=== PATIENT | male | born 1960 | race Caucasian/White ===

== ENCOUNTER 2016-08-15 15:12 | Inpatient (IN) | payer OTHER ==
[~2016-08-15] VITALS: Ht 152.4 cm; Wt 78.9 kg
[~2016-08-15 15:12] MED LIST: A & D OINTMENT1 OIN TOP; ADVIL LIQUI-GE200 MG PO; ALDACTONE 25 MG25 MG PO; AUGMENTIN 875-1 EACH PO; AVONEX 3030 MCG/0.5 IM; BACTRIM DS 8001 TAB PO; BIAXIN 500MG T500 MG PO; CIPRO 500MG TA500 MG PO; COD LIVER OIL PO; COD LIVER OIL1 CAP PO; COREG CR80 MG PO; DOXYCYCLINE MO100 MG PO; DOXYCYCLINE100 MG PO; ESTER C 500 MG-1 TAB PO; FERROUS SULFAT325 M2 PO; FISH OIL 1,0001 EAC1 PO; FISH OIL CONC1000 MG PO; FLORASTOR250 M1 PO; FOLIC ACID 1 MG PO; FOLIC ACID1 M1 PO; IMODIUM 2 MG. CA2 MG PO; K-DUR 20MEQ TA20 MEQ PO; KLOR-CON 10MEQ10 MEQ PO; KLOR-CON M1010 MEQ PO; LOMOTIL 0.025 M1 TAB PO; LOPERAMIDE PO; Lioresal; MESTINON60 M1 PO; MESTINON60 MG PO; NATURAL ZINC50 MG PO; NYSTATIN100000 U/G TOP; PANTOPRAZOLE 40 MG PO; PANTOPRAZOLE SO40 MG PO; PREDNISONE 20MG20 MG PO; PREDNISONE20 M1 PO; SIMVASTATIN10 M1 PO; SIMVASTATIN10 MG PO; SPIRONOLACTONE25 MG PO; VITAMIN B12500 MCG PO; VITAMIN D31000 IU PO; [UNRECOGNIZED DRUG - OTHER] PO
--- NOTE | 2016-08-15 15:19 | NUR ---
STEPHANIE FROM [facility]. PER EMS AND PT, PT HAS CHRONIC S/P TUBE DUE TO MS, HAS BEEN TREATED FOR UTI WITH ORAL CIPRO, TODAY URINE CULTURE RESULTS CAME BACK AND PT WAS SENT IN FOR IV ABX. PT REPORTS POOR DRAINAGE FROM S/P TUBE LATELY, URINE HAS BEEN BLUE/PURPLE, PT STATING "MY UROLOGIST TOLD ME THAT MY BLADDER HAS SHRUNK TO THE SIZE OF THE BALLOON ON THE TUBE, SO IT'S VERY HARD TO UNCLOG."
--- NOTE | 2016-08-15 15:27 | ED GI/GU/ABDOMINAL COMPLAINT ---
History of Present Illness General Chief Complaint: Male Genitourinary Problems Stated Complaint: BIBA UTI Source: patient, old records Exam Limitations: no limitations Allergies Coded Allergies: NO KNOWN ALLERGIES (12/28/15) Reconcile Medications Ascorbic Acid/Bioflavonoid/C (Maryann C 500 MG-200 MG-50 MG) 1 TAB TAB 1 CAP PO DAILY HEALTH PROMOTION (Reported) Baclofen 10 MG TABLET 1 TAB PO 4 TIMES/DAY MUSCLE SPASMS (Reported) Bifidobacterium Infantis (Align) 4 MG (1 BILLION CELL) CAPSULE 1 TAB PO DAILY supplement (Reported) Carvedilol Phosphate (Coreg Cr) 80 MG CPMP.24HR 1 CAP PO DAILY heart ( Reported) Cholecalciferol (Vitamin D3) 1,000 IU TAB 2 TAB PO DAILY SUPPLEMENT (Reported ) Cyanocobalamin (Vitamin B12) 500 MCG TAB 1 TAB PO DAILY HEALTH PROMOTION ( Reported) Folic Acid 1 MG TABLET 1 TAB PO DAILY SUPPLEMENT (Reported) Ibuprofen (Advil Liqui-Gels) 200 MG CAPSULE 2 CAP PO Q4H PRN PAIN (Reported) Interferon Beta-1a/Albumin (Avonex Admin Pack 30 Mcg Vl) 30 MCG (1 ML) KIT 1 ML IM QWED MS (Reported) Loperamide HCl (Loperamide) 2 MG CAPSULE 1 CAP PO Q3H PRN DIARHHEA (Reported) [leon red 3] (Unknown Strength) (Unknown Dose) PO DAILY supplemt (Reported) Upatoi-3 Fatty Acids/Fish Oil (Fish Oil 1,000 MG Softgel) 1 EACH CAPSULE 1 CAP PO DAILY SUPPLEMENT (Reported) Pantoprazole Sodium 40 MG TABLET.DR 1 TAB PO DAILY AC GI (Reported) Potassium Chloride (Klor-Con M20) 20 MEQ TAB.ER.PRT 1 TAB PO BID SUPPLEMENT ( Reported) Prednisone 20 MG TABLET 1 TAB PO DAILY PRN ms exacerbation (Reported) Pyridostigmine [place] (Mestinon) 60 MG TABLET 1 TAB PO TID intestinal obstruction Please talk to your PCP immediately about resuming the medication. Saccharomyces Boulardii (Florastor) 250 MG CAPSULE 1 CAP PO BID PROBIOTIC ( Reported) Simvastatin (Simvastatin*) 10 MG TABLET 1 TAB PO QPM CHOLESTEROL (Reported) Spironolactone (Aldactone 25 MG Tablet) 25 MG TABLET 1 TAB PO DAILY DIURETIC (Reported) Zinc Gluconate (ZINC) 50 MG TABLET 1 TAB PO DAILY SUPPLEMENT (Reported) Triage Note: [facility]. PER EMS AND PT, PT HAS CHRONIC S/P TUBE DUE TO MS, HAS BEEN TREATED FOR UTI WITH ORAL CIPRO, TODAY URINE CULTURE RESULTS CAME BACK AND PT WAS SENT IN FOR IV ABX. PT REPORTS POOR DRAINAGE FROM S/P TUBE LATELY, URINE HAS BEEN BLUE/PURPLE, PT STATING "MY UROLOGIST TOLD ME THAT MY BLADDER HAS SHRUNK TO THE SIZE OF THE BALLOON ON THE TUBE, SO IT'S VERY HARD TO UNCLOG." Triage Nurses Notes Reviewed? yes HPI: Patient is a 56 year old male sent to the ED for treatment of urinary tract infection. Patient noticed purple discoloration to urine 1 week ago. Placed on Cipro on Monday, had a urine culture sent on Monday which is reportedly showing resistance to ciprofloxacin. Patient's urologist is Dr. Fish. Intermittent lightheadedness over the past few weeks. Patient reports that his blood pressure has been running "low", oftentimes below 100 systolic. 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 Patient has chronic pain secondary to multiple sclerosis, no acute change in his pain. Pain is currently mild to moderate. Patient denies any new back pain, abdominal pain, fevers, chills, vomiting (MEENA GRIFFITH) Vital Signs & Intake/Output Vital Signs & Intake/Output Vital Signs Date Time Temp Pulse Resp B/P Pulse O2 O2 Flow FiO2 Ox Delivery Rate 08/15 1928 97.1 79 18 121/74 96 Room Air 08/15 1731 98.1 82 18 119/70 97 Room Air 08/15 1517 97.0 76 18 124/73 97 Room Air Past History Travel History Traveled to [place] past 21 day No Medical History Any Pertinent Medical History? see below for history Neurological: multiple sclerosis EENT: NONE Cardiovascular: hypertension, CONGESTIVE HEART FAILURE HPL CARDIOMYOPATHY Respiratory: NONE Gastrointestinal: PSEUDO OBSTRUCTION ILEUS Hepatic: NONE Renal: SUPRAPUBIC TUBE-FREQUENT OBSTRUCTION. 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 No (MEENA GRIFFITH) Review of Systems Review of Systems Constitutional: Reports: weakness. Denies: chills, fever. EENTM: Reports: no symptoms. Respiratory: Denies: cough, short of breath. Cardiovascular: Denies: chest pain, peripheral edema, syncope. GI: Denies: abdominal pain, nausea, vomiting. Genitourinary: Reports: see HPI. Musculoskeletal: Reports: back pain (chronic, unchanged). Skin: Reports: no symptoms. Neurological/Psychological: Reports: numbness (chronic secondary to MS). Denies: headache. Hematologic/Endocrine: Denies: bruising, bleeding. Immunologic/Allergic: Denies: splenectomy. (MEENA GRIFFITH) Physical Exam Physical Exam General Appearance: alert, awake Head: atraumatic, normal appearance Eyes: Bilateral: normal appearance, PERRL, EOMI. Ears, Nose, Throat, Mouth: hearing grossly normal, moist mucous membrane Neck: normal inspection, supple, full range of motion Respiratory: normal breath sounds, chest non-tender, no respiratory distress, lungs clear Cardiovascular: regular rate/rhythm Gastrointestinal: normal bowel sounds, soft, non-tender Male Genitals: purple discoloration patient's urine in his suprapubic catheter bag Extremities: no lower extremity edema. Decreased range of motion in all 4 extremities which patient reports is chronic secondary to his multiple sclerosis Neurologic/Psych: awake, alert, oriented x 3 Skin: warm/dry Core Measures ACS in differential dx? No Severe Sepsis Present: No Septic Shock Present: No (MEENA GRIFFITH) Progress Differential Diagnosis: urinary tract infection, medication induced change in urine color, sepsis, suprapubic catheter dysfunction Initial ED EKG: normal axis, normal p-waves, normal QRS complex, normal sinus rhythm, nonspecific intraventricular conduction delay, nonspecific st/t wave changes, no acute changes from previous ekg. Prior EKG: unchanged (MEENA GRIFFITH) Plan of Care: Orders Procedure Date/time Status Heart Healthy Diet 08/16 B Active CBC WITHOUT DIFFERENTIAL 08/16 599 Active BASIC ELECTROLYTES PLUS BUN&CR 08/16 599 Active URINALYSIS 08/15 1952 Active Pathway - chart 08/15 1951 Active Code Status 08/15 Active Intake & Output 08/15 191 Active Misc Message 08/15 184 Active ED Holding Orders 08/15 184 Active Vital Signs 08/15 184 Active Code Status 08/15 184 Complete Admit to inpatient 08/15 1838 Active Patient Data 08/15 1823 Active EKG 08/15 181 Active CULTURE,URINE 08/15 1537 Active BLOOD CULTURE 08/15 1537 Active LACTIC ACID 08/15 1537 Complete COMPREHENSIVE METABOLIC PANEL 08/15 1537 Complete CBC WITHOUT DIFFERENTIAL 08/15 1537 Complete House Staff 08/15 UNK Active VTE Mechanical Prophylaxis 08/15 UNK Active Current Medications Sig/Danitza Start time Last Medication Dose Stop Time Status Admin Atorvastatin Calcium 5 MG 1700 08/16 1700 UNVr (Lipitor) Ascorbic Acid 250 MG DAILY 08/16 1000 UNVr (Vitamin C) Cyanocobalamin 250 MCG DAILY 08/16 1000 UNVr (Vitamin B12) Enoxaparin Sodium 40 MG DAILY 08/16 1000 UNVr (Lovenox) Fish Oil 1,050 MG DAILY 08/16 1000 UNVr (Upatoi-3) Folic Acid 1 MG DAILY 08/16 1000 UNVr (Folic Acid) Baclofen 10 MG 4 TIMES/DAY 08/15 2199 UNVr (Lioresal 10MG Tablet) Potassium Chloride 20 MEQ BID 08/15 2199 UNVr (K-Dur) Acetaminophen 650 MG Q6P PRN 08/15 1999 UNVr (Tylenol) Sodium Chloride 1,000 ML Q13H 08/15 1999 UNVr (Normal Saline 0.9%) 08/16 2158 Loperamide HCl 2 MG Q3H PRN 08/15 1944 UNVr (Imodium) Ceftriaxone Sodium 1,000 MG DAILY 08/15 193 UNVr (Rocephin) Laboratory Tests 08/15/16 1837: Lactic Acid Cancelled 08/15/16 1620: Anion Gap 9, Estimated GFR > 60, BUN/Creatinine Ratio 22.5, Glucose 115 H, Lactic Acid 0.9, Calcium 8.9, Total Bilirubin 1.0, AST 14 L, ALT 18 L, Alkaline Phosphatase 59, Total Protein 6.5, Albumin 3.3 L, Globulin 3.2, Albumin/Globulin Ratio 1.0 L, CBC w Diff NO MAN DIFF REQ, RBC 5.18, MCV 78.9 L , MCH 25.7 L, RDW 16.0 H, MPV 9.3, Gran % 61.1, Lymphocytes % 28.1, Monocytes % 9.1, Eosinophils % 1.4, Basophils % 0.3, Absolute Granulocytes 3.3, Absolute Lymphocytes 1.5, Absolute Monocytes 0.5, Absolute Eosinophils 0.1, Absolute Basophils 0, PUBS MCHC 32.6 L Microbiology 08/15 1635 BLOOD: Blood Culture - RECD 08/15 1620 BLOOD: Blood Culture - RECD 08/15 1537 URINE ROUT: Urine Culture - ORD 1550: Discussed with Dr. Fish, he does not have patient's urine culture results, was called by nurse at assisted living and told that patient has been having decreased urine output and fluctuating mental status. Patient will likely need IV antibiotics and would bring for cystoscopy tomorrow. 1615: Discussed with Chary, talent development director at patient's assisted living facility. She does not have the urine culture results, reports that Dr. Fish' s office has the results. Urine culture obtained from Dr. Fish's office. Ampicillin and Bactrim ordered secondary to the sensitivities that were provided. Discussed with Dr. Rider: will admit to general medicine. (MEENA GRIFFITH) Departure Departure Time of Disposition: 1817 Disposition: HOME OR SELF CARE Condition: Stable Clinical Impression Primary Impression: Urinary tract infection Referrals: SHOOK LAWANDA ZAMORA (PCP/Family) Departure Forms: Customer Survey General Discharge Information Admission Note Spoke With: LIZZ RIDER MD Documentation of Exam: Documentation of any treatments & extenuating circumstances including Concerns Regarding Discharge (functional status, medication knowledge or non-compliance, living conditions, etc.) that warrant an admission rather than observation: Antibiotics, urology consultation, likely cystoscopy. Patient with reported episodes of hypotension recently, concern for failing antibiotic therapy and risk of sepsis (MEENA GRIFFITH) PA/RESIDENT MEDICAL OFFICER Co-Sign Statement Statement: ED Attending supervision documentation- [] I saw and evaluated the patient. I have also reviewed all the pertinent lab results and diagnostic results. I agree with the findings and the plan of care as documented in the PA's/RESIDENT MEDICAL OFFICER's documentation. [x] I have reviewed the ED Record and agree with the PA's/RESIDENT MEDICAL OFFICER's documentation. [] Additions or exceptions (if any) to the PAs/RESIDENT MEDICAL OFFICER's note and plan are summarized below: [] (TIM ZAMORA,DIEGO Bailey)
--- NOTE | 2016-08-15 15:28 | NUR ---
PT TO ROOM 19, TRANSFERRED TO JACOBY CONSTANTINO AND JACOBY BRONSON AT BEDSIDE FOR EVAL. PT REPORTS HE HAS CHRONIC PAIN DUE TO MS BUT HAS HAD NO NEW PAIN SYMPTOMS AT THIS TIME.
[2016-08-15] MEDS ORDERED: KLOR-CON M2020 ME1 PO (15:41)
[2016-08-15] MEDS ORDERED: AVONEX ADMIN P30 MCG IM (15:42)
[2016-08-15] MEDS ORDERED: BACLOFEN10 M1 PO (15:44)
[2016-08-15] MEDS ORDERED: ADVIL LIQUI-GE200 M1 PO (15:45)
[2016-08-15] MEDS ORDERED: LOPERAMIDE2 M2 PO (15:45)
--- NOTE | 2016-08-15 16:36 | NUR ---
PT EVALUATED BY MONTEZ DOZIER BLOOD DRAWN DIRECTED WITH 1ST SET OF BLOOD CULTURES
[2016-08-15 16:53] LABS: ABSOLUTE BASOPHIL COUNT 0 /CUMM (0.0-0.2); ABSOLUTE EOSINOPHIL COUNT 0.1 /CUMM (0.0-0.7); ABSOLUTE GRANULOCYTE CT 3.3 /CUMM (1.4-6.5); ABSOLUTE LYMPH COUNT 1.5 /CUMM (1.2-3.4); ABSOLUTE MONOCYTE COUNT 0.5 /CUMM (0.10-0.60); BASOPHIL % 0.3 % (0.0-2.0); EOSINOPHIL % 1.4 % (0-5); GRANULOCYTE % 61.1 % (42.2-75.2); HEMATOCRIT 40.8 % (42-52); MEAN CORPUSCULAR HGB 25.7 PG (27.0-31.0); MEAN CORPUSCULAR HGB CONC 32.6 G/DL (33.0-37.0); MEAN CORPUSCULAR VOLUME 78.9 FL (80.0-94.0); MEAN PLATELET VOLUME 9.3 FL (7.4-10.4); PLATELET COUNT 209 /CUMM (130-400); RED BLOOD CELL CT 5.18 /CUMM (4.70-6.10); WHITE BLOOD CELL COUNT 5.4 /CUMM (4.8-10.8)
--- NOTE | 2016-08-15 17:02 | NUR ---
2ND SET OF BLOOD CULTURES DRAWN 20 G ERICKA PLACED IN LEFT FOREARM CLINICAL STATUS UNCHANGED
--- NOTE | 2016-08-15 19:29 | History & Physical ---
EVI HURST MD 08/15/161928: General Information and HPI MD Statement: I have seen and personally examined HUSAM GOTTLIEB and documented this H&P. The patient is a 56 year old M who presented with a patient stated chief complaint of urinary infection and low blood pressure. Source of Information: patient Exam Limitations: no limitations History of Present Illness: 56 year old man with past medical history significant for multiple sclerosis, paraplegia, congestive heart failure, cardiomyopathy, and chronic indwelling suprapubic catheter brought in by ambulance for evaluation of "low blood pressure" and urinary tract symptoms. Patient lives with his 96 year old mother in an independent living facility whom was reportedly standing up making Hirifast this morning when she suddenly collapsed. Patient hit his alert button to call for help. His mother was taken to [facility] for evaluation, and the patient himself was evaluated by the staff there where they found his "blood pressure to be low" and that his vickers was draining "purple urine". Patient sees Dr. Fish for care of his suprapubic catheter which was reportedly recently placed and unknown time ago. Prior to this he had a chronic vickers catheter for which he reports was associated with frequent urinary tract infections. He reports the catheter was 'recently replaced' and he was put on an antibiotic. Cultures were taken at this time which subsequently grew two organisms resistant to the prescribed antibiotics. He denies any urinary pain, pressure, frequency, urgency or bloody urine, double/blurred vision. Additionally he denies any headache, fever, chills, chest pain, palpitations, shortness of breath, cough, nausea, vomiting, diarrhea, numbness/tingling, new neurologic deficits. PMHx: Multiple Sclerosis, Paraplegia, Chronic Suprapubic Catheter, Systolic Congestive Heart Failure, Cardiomyopathy, Hypertension, Recurrent UTI Allergies/Medications Allergies: Coded Allergies: NO KNOWN ALLERGIES (12/28/15) Home Med list Ascorbic Acid/Bioflavonoid/C (Maryann C 500 MG-200 MG-50 MG) 1 TAB TAB 1 CAP PO DAILY HEALTH PROMOTION (Reported) Baclofen 10 MG TABLET 1 TAB PO 4 TIMES/DAY MUSCLE SPASMS (Reported) Bifidobacterium Infantis (Align) 4 MG (1 BILLION CELL) CAPSULE 1 TAB PO DAILY supplement (Reported) Carvedilol Phosphate (Coreg Cr) 80 MG CPMP.24HR 1 CAP PO DAILY heart ( Reported) Cholecalciferol (Vitamin D3) 1,000 IU TAB 2 TAB PO DAILY SUPPLEMENT (Reported ) Cyanocobalamin (Vitamin B12) 500 MCG TAB 1 TAB PO DAILY HEALTH PROMOTION ( Reported) Folic Acid 1 MG TABLET 1 TAB PO DAILY SUPPLEMENT (Reported) Ibuprofen (Advil Liqui-Gels) 200 MG CAPSULE 2 CAP PO Q4H PRN PAIN (Reported) Interferon Beta-1a/Albumin (Avonex Admin Pack 30 Mcg Vl) 30 MCG (1 ML) KIT 1 ML IM QWED MS (Reported) Loperamide HCl (Loperamide) 2 MG CAPSULE 1 CAP PO Q3H PRN DIARHHEA (Reported) [leon red 3] (Unknown Strength) (Unknown Dose) PO DAILY supplemt (Reported) Lincoln-3 Fatty Acids/Fish Oil (Fish Oil 1,000 MG Softgel) 1 EACH CAPSULE 1 CAP PO DAILY SUPPLEMENT (Reported) Pantoprazole Sodium 40 MG TABLET.DR 1 TAB PO DAILY AC GI (Reported) Potassium Chloride (Klor-Con M20) 20 MEQ TAB.ER.PRT 1 TAB PO BID SUPPLEMENT ( Reported) Prednisone 20 MG TABLET 1 TAB PO DAILY PRN ms exacerbation (Reported) Pyridostigmine [place] (Mestinon) 60 MG TABLET 1 TAB PO TID intestinal obstruction Please talk to your PCP immediately about resuming the medication. Saccharomyces Boulardii (Florastor) 250 MG CAPSULE 1 CAP PO BID PROBIOTIC ( Reported) Simvastatin (Simvastatin*) 10 MG TABLET 1 TAB PO QPM CHOLESTEROL (Reported) Spironolactone (Aldactone 25 MG Tablet) 25 MG TABLET 1 TAB PO DAILY DIURETIC (Reported) Zinc Gluconate (ZINC) 50 MG TABLET 1 TAB PO DAILY SUPPLEMENT (Reported) Past History Travel History Traveled to [place] past 21 day No Medical History Neurological: multiple sclerosis EENT: NONE Cardiovascular: hypertension, CONGESTIVE HEART FAILURE HPL CARDIOMYOPATHY Respiratory: NONE Gastrointestinal: PSEUDO OBSTRUCTION ILEUS Hepatic: NONE Renal: SUPRAPUBIC TUBE-FREQUENT OBSTRUCTION. HYPOKALEMIA Musculoskeletal: NONE Psychiatric: NONE Endocrine: NONE Blood Disorders: NONE Cancer(s): NONE SENIOR SALES ADMINISTRATOR/Reproductive: N/A History of MRSA: No History of VRE: Yes History of CDIFF: No Surgical History Surgical History: SUPRAPUBIC CATHETER TONSILS Past Family/Social History Family History Relations & Conditions if any Relation not specified for: *No pertinent family history Psychosocial History Where do you live? [facility] Who Do You Live With? parent Services at Home: Home Health Aide, Nursing Smoking Status: Former Smoker ETOH Use: occasional use Illicit Drug Use: denies illicit drug use Functional Ability ADLs Needs Assist: dressing, eating, toileting, bathing. Ambulation: non-ambulatory IADLs Needs Assist: shopping, housework, finances, food prep, telephone, transportation, medication admin. Review of Systems Review of Systems Constitutional: Reports: see HPI. Exam & Diagnostic Data Last 24 Hrs of Vital Signs/I&O Vital Signs Date Time Temp Pulse Resp B/P Pulse O2 O2 Flow FiO2 Ox Delivery Rate 08/15 2233 97.9 87 20 112/78 94 Room Air 08/15 1929 97.1 79 18 121/74 96 Room Air 08/15 1731 98.1 82 18 119/70 97 Room Air 08/15 1517 97.0 76 18 124/73 97 Room Air Intake & Output 08/16 0800 08/16 0000 08/15 1600 Intake Total 0 Output Total Balance 0 Intake, IV 0 Patient 78.925 kg 77.111 kg Weight Physical Exam General Appearance Alert, Oriented X3, Cooperative, No Acute Distress Skin No Rashes, No Breakdown, No Significant Lesion HEENT Atraumatic, PERRLA, EOMI, Mucous Membr. moist/pink Neck Supple Cardiovascular Regular Rate, Normal S1, Normal S2, No Murmurs Lungs Clear to Auscultation, Normal Air Movement Abdomen Normal Bowel Sounds, Soft, No Tenderness, No Hepatospenomegaly, No Masses, Suprapubic catheter site intact without any surrounding drainage, erythema, or induration Neurological Paraplegic, Speech is soft and slow, Diminished muscle tone, Strength 2/5 in BL UE, 1/5 in BL LE Extremities No Clubbing, No Cyanosis, No Edema, Normal Pulses, No Tenderness/ Swelling Vascular Normal Pulses, Pulses Symmetrical Last 24 Hrs of Labs/Parker: Laboratory Tests 08/15/16 1837: Lactic Acid Cancelled 08/15/16 1620: Anion Gap 9, Estimated GFR > 60, BUN/Creatinine Ratio 22.5, Glucose 115 H, Lactic Acid 0.9, Calcium 8.9, Total Bilirubin 1.0, AST 14 L, ALT 18 L, Alkaline Phosphatase 59, Total Protein 6.5, Albumin 3.3 L, Globulin 3.2, Albumin/Globulin Ratio 1.0 L, CBC w Diff NO MAN DIFF REQ, RBC 5.18, MCV 78.9 L , MCH 25.7 L, RDW 16.0 H, MPV 9.3, Gran % 61.1, Lymphocytes % 28.1, Monocytes % 9.1, Eosinophils % 1.4, Basophils % 0.3, Absolute Granulocytes 3.3, Absolute Lymphocytes 1.5, Absolute Monocytes 0.5, Absolute Eosinophils 0.1, Absolute Basophils 0, PUBS MCHC 32.6 L Microbiology 08/15 1635 BLOOD: Blood Culture - RECD 08/15 1620 BLOOD: Blood Culture - RECD 08/15 1537 URINE ROUT: Urine Culture - ORD Diagnostic Data EKG Results NSR HR 79 RI [address]-segment changes Assessment/Plan Assessment: 56 year old male with multiple medical problems significant for MS with paraplegia, chronic indwelling vickers, and recurrent UTIs seen for evaliation of low blood pressure, apparenent urinary tract infection and purple urine after patients mother reportedly collapsed and suffered a stroke. Patient has been seen my multiple specialists in the past for his MS and comorbid conditions since he was first diagnosed with multiple sclerosis after the of his son in 1988. He reports an extensive history of recurrent UTIs that have gotten less frequent since he was placed with a suprapubic catheter. Urine cultures from the last urology visit are growing two organisms resistant to Ciprofloxacin, but fortunately sensitive to Ceftriaxone. Patient is to be admitted to the general medicine floor and started on intravenous antibiotics. Urinary Tract Infection / Suprapubic Catheter: History of Multiple Sclerosis requiring vickers catheter and recently changed to suprapubic catheter for recurrent UTIs most likely secondary to chronic neurogenic bladder. Patient of Dr. Fish. He was given Bactrim and Ampicillin in the ED. -UCx growing E. Faecalis and P. stuartii -Ceftriaxone 1g IV Daily -Nystatin -Urology consult -F/U Blood/Urine cultures Hypotension: Patient was reportedly hypotensive at his independent living facility. BP range in ED 119-124/70-73. -Monitor Vitals, bolus as needed -Hold blood pressure medications, resume as tolerated Multiple Sclerosis: Reportedly diagnosed after the of his son in 1988. Subsequently developing paraplegia and neurogenic bladder. -Baclofen 10mg PO Q6H History of Systolic Congestive Heart Failure: No bilateral lower extremity swelling, JVD, or crackles on examination. Patient of Dr. Membreno. -Spironolactone 12.5mg PO Daily -KCl 20mEq PO BID Hypertension - hold Coreg/Carvedilol as above, monitor for high/low blood pressure Hyperlipidemia - continue Atorvastatin 5mg Pain Plain: -Acetaminophen 650mg PO Q6H PRN PAIN 1-3, FEVER Diet - Heart Healthy Diet DVT PPx - Lovenox Code Status - FULL CODE As Ranked By This Provider Problem List: 1. Urinary tract infection Core Measures/Miscellaneous Acute Coronary Syndrome ACS Diagnosis: No Cerebrovascular Accident CVA/TIA Diagnosis: No Congestive Heart Failure CHF Diagnosis: No Venous Thromboembolism VTE Risk Factors: Age > 40, Immobility, paresis VTE Prophylaxis Ordered Inpt: [facility] prophylaxis d/t: At risk for falls, Sensory neuropathy No VTE Pharm Prophylaxis d/t: No contraindications VTE Diagnosis: No VTE Type: NONE VTE Confirmed by (Test): NONE Severe Sepsis Severe Sepsis Present: No Septic Shock Septic Shock Present: No Miscellaneous Documentation Attending Case Discussed With: [place] Primary Care Physician: LAWANDA SHOOK MD Patient sees these Specialists Dr. Abe Mckenzie (Neurology) Level of Patient Care: General Medicine Consults Needed: Consulting Specialty: Urology SUPA RED 08/15/162100: Resident Review Statement Resident Statement: examined this patient, discussed with software developer intern, agreed with software developer intern, reviewed images, amended to note Other Findings: 56-year-old man with past medical history of MS with paraplegia, suprapubic catheter,hx of CHF and cardiomyopathy,hronic pseudo-obstruction(recent admission to [facility]), HTN was brought to the hospital with chief complaint of urinary infection. Of note patient was taken care of by his mother, who had the CVA today and she is also in the hospital. Patient reported having his Vickers catheter change every 4-6 weeks. However recently it was changed within a span of one week due to being clogged. Patient here in color has changed to Purple for about 1 week ago, Dr. Fish was called and he was put on ciprofloxacin urine culture was sent on Monday. However the result of the urine culture showed Enterococcus faecalis and P.staurrti resistant to Cipro therefore patient came to the hospital. Patient also reported of having low blood pressures it's which she attributed to his cardiac medication. Patient denies any fever, chills, nausea, vomiting, headaches. Vital signs on admission were stable Skin No Rashes, No Breakdown, No Significant Lesion HEENT Atraumatic, PERRLA, EOMI Neck Supple, No JVD, No thryomegaly Lymphatic Cervical nl Cardiovascular Regular Rate, Normal S1, Normal S2 Lungs Clear to Auscultation, Normal Air Movement Abdomen Normal Bowel Sounds, Soft, No Tenderness, Neurological 0/5 LE, 3-4/5 UE strength Extremities No Clubbing, No Cyanosis, No Edema,Normal Pulses EKG showed normal sinus rhythm with no acute ST-T changes Notable labs showed albumin 3.3, mild microcytic anemia Outpatient urine culture showed growthof Enterococcus faecalis and P(Providencia rettgeri).stuarrti sensitive to ceftriaxone Assessment and plan #purple urine back syndrome, urinary infection -Patient received ampicillin and Bactrim in the ED, we will continue IV ceftriaxone and IV ampicillin -ID consult for tomorrow -Cystoscopy by Dr. Fish tomorrow -NPO tonight -IV hydration for 1 bag NS -Follow urine culture and blood culture #hx of MS -Continue baclofen -Continue loperamide when necessary for diarrhea -Continue vitamin supplements -Continue PPI #History of hypertension/CHF in the past/bouts of hypotension -We will continue with all locked and 2.5 and Coreg CR 40 mg daily(equivalent to coreg 12.5 twice a day) for now -Cardiology consult with Dr. Membreno tomorrow DVT prophylaxis is Lovenox and Alps, full code, Tylenol for pain, heart healthy diet Please confirm the CMR with the patient because there are a lot of PRN medications From wikipedia : Tryptophan in the diet is metabolized by bacteria in the gastrointestinal tract to produce indole. Indole is absorbed into the blood by the intestine and passes to the liver. There, indole is converted to indoxyl sulfate. Indoxyl sulfate is excreted in the urine. In purple urine bag syndrome, bacteria that colonize the urinary catheter convert the indoxyl sulfate to indirubin and indigo. Purple urine bag syndrome is a medical syndrome where purple discoloration of urine occurs in people with urinary catheters and co-existent urinary tract infection. Bacteria in the urine produce the enzyme indoxyl phosphatase. This converts indoxyl sulfate in the urine into the red and blue colored compounds indirubin and indigo. The most commonly implicated bacteria are Providencia stuartii, Providencia rettgeri, Klebsiella pneumoniae, Proteus mirabilis, Escherichia coli, Morganella morganii, and Pseudomonas aeruginosa LIZZ HAMM 08/16/16 0626: Attending MD Review Statement Attending Statement Attending MD Statement: examined this patient, discuss w/resident/PA/CHIEF LOCK TENDER OPERATOR, agreed w/resident/PA/CHIEF LOCK TENDER OPERATOR, reviewed EMR data (avail), reviewed images, amended to note Attending Assessment/Plan: CC: Resistant organisms on urine culture need IV antibiotics PMH: MS, quadriplegia, neurogenic bladder, suprapubic catheter, HTN, HLD, intestinal pseudoobstruction Patient was brought in from [facility] for resistant urinary infection. Recently patient's urine started to turn purple, urinary cultures were obtained and was started on Cipro. Urine cultures came back and had to resistant organisms so was sent to ER for IV antibiotics. Meanwhile according to patient "my bladder he shrunk" expecting cystoscopy. ?Blocked suprapubic catheter Vitals: Afebrile, HR, RR, blood pressure, O2 saturation within acceptable range. On examination: A O 3, anxious, no acute distress, minimum strength bilateral lower extremities, 3/5 bilateral upper extremities, muscle wasting and contractures. Abdomen: Distended, nontender, suprapubic catheter present, no local inflammation or leakage. Purple colored urine in catheter. CVS: S1-S2, RRR. RS: Clear air entry bilaterally. Labs: CBC, BMP, LFT unremarkable. Assessment and plan #1 complicated UTI: Neurogenic bladder with suprapubic catheter, ? Blocked, recent urine culture growing E. Faecalis and P. stuartii, sensitivity in the chart, continue ampicillin and ceftriaxone, ID consult in a.m., urology consult for expected cystoscopy and blocked suprapubic catheter, continue gentle hydration, creatinine at baseline. #2 according to patient his blood pressure has been fluctuating at [facility], hold off all his blood pressure medication tonight watch blood pressure overnight and resume medications in a.m. with decreased dose of spironolactone and Coreg. #3 continue medications for multiple sclerosis, HLD, DVT prophylaxis with Lovenox, adequate pain control.
[2016-08-15] MEDS ORDERED: COREG PO (19:36)
[2016-08-15] MEDS ORDERED: PREDNISONE20 M1 PO (19:39)
[2016-08-15] MEDS ORDERED: ALIGN4 M1 PO (19:41)
[2016-08-15] MEDS ORDERED: MEGA RED PO (19:42)
--- NOTE | 2016-08-15 20:10 | NUR ---
ABX INFUSING, PO FLUIDS PROVIDED, PT WATCHING TV, DENIES ANY COMPLAINTS.
--- NOTE | 2016-08-15 20:45 | NUR ---
BED ASSIGNMENT [id number]
--- NOTE | 2016-08-15 21:02 | NUR ---
BED ASSIGNMENT 218 PER FLOOR RN TAKING REPORT
--- NOTE | 2016-08-15 21:10 | NUR ---
REPORT CALLED TO [facility] ON 2N, TRANSPORT BOOKED.
[2016-08-15 22:33] VITALS: BP 112/78
[2016-08-16 06:25] VITALS: BP 110/82
--- NOTE | 2016-08-16 06:27 | Admission Certification ---
Admission Certification Certification Statement - As attending physician, I certify that at the time of - admission, based on clinical presentation, severity of - symptoms, need for further diagnostic testing and - therapeutic interventions, and risk of adverse outcomes - without in-hospital treatment, in my clinical assessment, - this patient requires an acute hospital stay for a minimum - of two nights or longer. I have also considered psychsocial - factors such as support system, advanced age, financial - issues, cognitive issues, and failed out-patient treatments, - past re-admission history, safety of patient, and lack of - compliance as applicable. Specific rationale supporting this admission is: Complicated UTI with suprapubic catheter for neurogenic bladder
--- NOTE | 2016-08-16 07:20 | Cons- Urology ---
General Information and HPI Consulting Request Date of Consult: 08/15/16 Requested By: LIZZ HAMM MD Reason for Consult: UTI; DISCHARGE FROM SPT Source of Information: patient Exam Limitations: no limitations (SLOW AND WHISPERER SPEECH-) History of Present Illness: 56 YR OLD WITH MS IN W/C AND REQUIRES SPT FOR NEUROGENIC-SPASTIC BLADDER. PT'S NURSE CALLED C/O PTS FEVER, DISCHARGE AND NO URINE OUTPUT. SENT TO ER FOR EVAL AND TX FOR UTI/PYELO. Allergies/Medications Allergies: Coded Allergies: NO KNOWN ALLERGIES (12/28/15) Home Med List: Ascorbic Acid/Bioflavonoid/C (Maryann C 500 MG-200 MG-50 MG) 1 TAB TAB 1 CAP PO DAILY HEALTH PROMOTION (Reported) Baclofen 10 MG TABLET 1 TAB PO 4 TIMES/DAY MUSCLE SPASMS (Reported) Bifidobacterium Infantis (Align) 4 MG (1 BILLION CELL) CAPSULE 1 TAB PO DAILY supplement (Reported) Carvedilol Phosphate (Coreg Cr) 80 MG CPMP.24HR 1 CAP PO DAILY heart ( Reported) Cholecalciferol (Vitamin D3) 1,000 IU TAB 2 TAB PO DAILY SUPPLEMENT (Reported ) Cyanocobalamin (Vitamin B12) 500 MCG TAB 1 TAB PO DAILY HEALTH PROMOTION ( Reported) Folic Acid 1 MG TABLET 1 TAB PO DAILY SUPPLEMENT (Reported) Ibuprofen (Advil Liqui-Gels) 200 MG CAPSULE 2 CAP PO Q4H PRN PAIN (Reported) Interferon Beta-1a/Albumin (Avonex Admin Pack 30 Mcg Vl) 30 MCG (1 ML) KIT 1 ML IM QWED MS (Reported) Loperamide HCl (Loperamide) 2 MG CAPSULE 1 CAP PO Q3H PRN DIARHHEA (Reported) [leon red 3] (Unknown Strength) (Unknown Dose) PO DAILY supplemt (Reported) Reading-3 Fatty Acids/Fish Oil (Fish Oil 1,000 MG Softgel) 1 EACH CAPSULE 1 CAP PO DAILY SUPPLEMENT (Reported) Pantoprazole Sodium 40 MG TABLET.DR 1 TAB PO DAILY AC GI (Reported) Potassium Chloride (Klor-Con M20) 20 MEQ TAB.ER.PRT 1 TAB PO BID SUPPLEMENT ( Reported) Prednisone 20 MG TABLET 1 TAB PO DAILY PRN ms exacerbation (Reported) Pyridostigmine [place] (Mestinon) 60 MG TABLET 1 TAB PO TID intestinal obstruction Please talk to your PCP immediately about resuming the medication. Saccharomyces Boulardii (Florastor) 250 MG CAPSULE 1 CAP PO BID PROBIOTIC ( Reported) Simvastatin (Simvastatin*) 10 MG TABLET 1 TAB PO QPM CHOLESTEROL (Reported) Spironolactone (Aldactone 25 MG Tablet) 25 MG TABLET 1 TAB PO DAILY DIURETIC (Reported) Zinc Gluconate (ZINC) 50 MG TABLET 1 TAB PO DAILY SUPPLEMENT (Reported) Current Medications: Current Medications Sig/Danitza Start time Last Medication Dose Route Stop Time Status Admin Acetaminophen 650 MG Q6P PRN 08/15 2000 AC PO Ampicillin 1,000 MG Q6 08/15 2359 AC 08/16 Sodium Chloride 100 ML IV 0532 Ampicillin 0 .STK-MED ONE 08/15 172 DC .ROUTE Ampicillin 1,000 MG ONCE ONE 08/15 1715 DC 08/15 Sodium Chloride 100 ML IV 08/15 1744 1739 Ascorbic Acid 250 MG DAILY 08/16 1000 AC PO Atorvastatin Calcium 5 MG 1700 08/16 1700 AC PO Baclofen 10 MG 4 TIMES/DAY 08/15 2200 AC PO Carvedilol 12.5 MG BID 08/16 1000 AC PO Ceftriaxone Sodium 1,000 MG DAILY 08/16 1000 AC IV Ceftriaxone Sodium 0 .STK-MED ONE 08/15 2004 DC .ROUTE Ceftriaxone Sodium 1,000 MG DAILY 08/15 1930 DC 08/15 IV 2010 Cyanocobalamin 250 MCG DAILY 08/16 1000 AC PO Enoxaparin Sodium 40 MG DAILY 08/16 1000 AC SC Fish Oil 1,050 MG DAILY 08/16 1000 AC PO Folic Acid 1 MG DAILY 08/16 1000 AC PO Loperamide HCl 2 MG Q3H PRN 08/15 1945 AC PO Nystatin 1 CATRACHO BID 08/16 1000 AC TOP Potassium Chloride 20 MEQ BID 08/15 2200 AC 08/16 PO 0026 Sodium Chloride 1,000 ML Q13H 08/15 2000 DC 08/15 IV 08/16 0859 2045 Spironolactone 12.5 MG DAILY 08/16 1000 AC PO Trimethoprim/ 0 .STK-MED ONE 08/15 1728 DC Sulfamethoxazole PO Trimethoprim/ 1 TAB ONCE ONE 08/15 171 DC 08/15 Sulfamethoxazole PO 08/15 1716 1739 Past History Medical History Blood Transfusion Hx: No Neurological: multiple sclerosis EENT: NONE Cardiovascular: hypertension, CONGESTIVE HEART FAILURE HPL CARDIOMYOPATHY Respiratory: NONE Gastrointestinal: PSEUDO OBSTRUCTION ILEUS Hepatic: NONE Renal: SUPRAPUBIC TUBE-FREQUENT OBSTRUCTION. HYPOKALEMIA Musculoskeletal: NONE Psychiatric: NONE Endocrine: NONE Blood Disorders: NONE Cancer(s): NONE FISHING GAME WARDEN/Reproductive: N/A Surgical History Pertinent Surgical History: SUPRAPUBIC CATHETER TONSILS Family History Relations & Conditions If Any: Relation not specified for: *No pertinent family history Psychosocial History Where Do You Live? [facility] Who Do You Live With? parent Services at Home: Home Health Aide, Nursing Smoking Status: Former Smoker ETOH Use: occasional use Illicit Drug Use: denies illicit drug use Functional Ability ADLs Needs Assist: dressing, eating, toileting, bathing. Ambulation: non-ambulatory IADLs Needs Assist: shopping, housework, finances, food prep, telephone, transportation, medication admin. Employment History Retired? yes Review of Systems Review of Systems Constitutional: Reports: weakness. EENTM: Reports: see HPI. Cardiovascular: Denies: no symptoms. Respiratory: Denies: no symptoms. GI: Denies: no symptoms. Genitourinary: Reports: see HPI. Musculoskeletal: Reports: see HPI. Skin: Denies: no symptoms. Exam & Diagnostic Data Vital Signs and I&O Vital Signs Date Time Temp Pulse Resp B/P Pulse O2 O2 Flow FiO2 Ox Delivery Rate 08/16 0625 98.4 85 20 110/82 95 Room Air 08/15 2233 97.9 87 20 112/78 94 Room Air 08/15 1929 97.1 79 18 121/74 96 Room Air 08/15 1731 98.1 82 18 119/70 97 Room Air 08/15 1517 97.0 76 18 124/73 97 Room Air Intake & Output 08/16 0800 08/16 0000 08/15 1600 08/15 0800 08/15 0000 08/14 1600 Intake Total 0 Output Total Balance 0 Intake, IV 0 Patient 174 lb 170 lb Weight Physical Exam General Appearance: well developed/nourished, W/C DEPENDENT Head: atraumatic Eyes: Bilateral: normal appearance. Respiratory: normal breath sounds Cardiovascular: regular rate/rhythm Gastrointestinal: normal bowel sounds, soft Back: no vertebral tenderness Extremities: limited range of motion Neurologic/Psych: awake, alert, oriented x 3 (W/C WITH MS) Reproductive: Normal male genitalia Other Physical Findings: SPT Last 24 Hours of Labs: Laboratory Tests 08/15 08/15 1837 1620 Chemistry Sodium (137 - 145 mmol/L) 139 Potassium (3.5 - 5.1 mmol/L) 3.8 Chloride (98 - 107 mmol/L) 102 Carbon Dioxide (22 - 30 mmol/L) 28 Anion Gap (5 - 16) 9 BUN (9 - 20 mg/dL) 9 Creatinine (0.7 - 1.2 mg/dL) 0.4 L Estimated GFR (>60 ml/min) > 60 BUN/Creatinine Ratio (7 - 25 %) 22.5 Glucose (65 - 99 mg/dL) 115 H Lactic Acid (0.7 - 2.1 mmol/L) Cancelled 0.9 Calcium (8.4 - 10.2 mg/dL) 8.9 Total Bilirubin (0.2 - 1.3 mg/dL) 1.0 AST (17 - 59 U/L) 14 L ALT (21 - 72 U/L) 18 L Alkaline Phosphatase (< 127 U/L) 59 Total Protein (6.3 - 8.2 g/dL) 6.5 Albumin (3.5 - 5.0 g/dL) 3.3 L Globulin (1.9 - 4.2 gm/dL) 3.2 Albumin/Globulin Ratio (1.1 - 2.2 %) 1.0 L Hematology CBC w Diff NO MAN DIFF REQ WBC (4.8 - 10.8 /CUMM) 5.4 RBC (4.70 - 6.10 /CUMM) 5.18 Hgb (14.0 - 18.0 G/DL) 13.3 L Hct (42 - 52 %) 40.8 L MCV (80.0 - 94.0 FL) 78.9 L MCH (27.0 - 31.0 PG) 25.7 L RDW (11.5 - 14.5 %) 16.0 H Plt Count (130 - 400 /CUMM) 209 MPV (7.4 - 10.4 FL) 9.3 Gran % (42.2 - 75.2 %) 61.1 Lymphocytes % (20.5 - 51.1 %) 28.1 Monocytes % (1.7 - 9.3 %) 9.1 Eosinophils % (0 - 5 %) 1.4 Basophils % (0.0 - 2.0 %) 0.3 Absolute Granulocytes (1.4 - 6.5 /CUMM) 3.3 Absolute Lymphocytes (1.2 - 3.4 /CUMM) 1.5 Absolute Monocytes (0.10 - 0.60 /CUMM) 0.5 Absolute Eosinophils (0.0 - 0.7 /CUMM) 0.1 Absolute Basophils (0.0 - 0.2 /CUMM) 0 PUBS MCHC (33.0 - 37.0 G/DL) 32.6 L Imaging Results: PATIENT: HUSAM GOTTLIEB PRESENT AGE: 55 PATIENT ACCOUNT NO: [id number] : 56 LOCATION: [facility] ORDERING PHYSICIAN: VJ DOZIER SERVICE DATE: 03/30/16 EXAM TYPE: CAT - CT ABD & PELVIS W IV CONTRAST EXAMINATION: CT ABDOMEN AND PELVIS WITH CONTRAST CLINICAL INFORMATION: Abdominal distention and leukocytosis. COMPARISON: CT abdomen and pelvis with contrast 12/28/2015. TECHNIQUE: Multidetector volumetric imaging was performed of the abdomen and pelvis before and after the IV administration of 95 mL of Optiray 320 intravenous contrast. Sagittal and coronal reformatted images were obtained on the technologist's workstation. DLP: 1250 mGy-cm. FINDINGS: LUNG BASES: Minimal dependent right basilar atelectasis. No pleural or pericardial effusions. LIVER, GALLBLADDER, AND BILIARY TREE: The liver is normal in size and attenuation. No focal hepatic lesion or biliary ductal dilatation is present. The gallbladder is decompressed and there are several radiopaque gallstones layering dependently within the gallbladder lumen. No gallbladder wall thickening or pericholecystic inflammatory changes are identified. PANCREAS: Unremarkable. SPLEEN: Unremarkable. ADRENAL GLANDS: Unremarkable. KIDNEYS AND URETERS: Redemonstrated are multiple hypoattenuating lesions within the bilateral kidneys, too small to further characterize but statistically speaking, likely warehouse representative of simple renal cortical cysts. No renal or ureteral stones and no hydroureteronephrosis of either kidney or renal collecting system. BLADDER: The urinary bladder is decompressed by a suprapubic Huber catheter. GASTROINTESTINAL TRACT: Evaluation of the gastrointestinal system is again notable for gaseous distention of the colon, corresponding to the patient's previously identified pseudocolonic obstruction/colonic ileus. A moderate amount of retained stool is identified within the cecum and ascending colon as well as within the rectosigmoid colon. There is no bowel wall pneumatosis or pneumoperitoneum. Loops of small bowel are normal in caliber. There are no findings indicative of small bowel obstruction. No organizing intra-abdominal or pelvic fluid collections are identified and there is no free intraperitoneal air. A normal-appearing appendix is identified within the right lower quadrant of the abdomen. ABDOMINAL WALL: Markedly distended abdomen. No ventral abdominal wall hernias. LYMPH NODES: No significant abdominal or pelvic adenopathy. VASCULAR: Atherosclerosis of the abdominal aorta and its branching vessels, without aneurysmal dilatation. The abdominal and pelvic vasculature are grossly patent. PELVIC VISCERA: Unremarkable. OSSEOUS STRUCTURES: No acute osseous abnormality. Diffuse demineralization of the visualized bones. No acute fracture or dislocation is identified. Redemonstrated is multilevel facet arthrosis of the imaged thoracolumbar spine. IMPRESSION: 1. Stable appearance of the abdomen and pelvis relative to the most recent exam dated 12/28/2015. Persistent gaseous distention of the colon, corresponding to the patient's previously identified pseudocolonic obstruction/colonic ileus. There is a moderate amount of retained stool within the cecum and ascending colon as well as the rectosigmoid colon. However, there are no findings indicative of small bowel or colonic obstruction. No bowel wall pneumatosis or pneumoperitoneum is identified. 2. Bilateral simple renal cortical cysts. Assessment/Plan Assessment/Plan PT WITH UTI POSSIBLE PYELO: CULTURES RECOMMENDED WITH ABX/IVF COVERAGE. WILL LIKELY NEED CYSTOSCOPY AND SPT CHANGE. Copies To: MANDY DANIELLE MD Consult Acknowledgment - Thank you for your consult request. Attending MD Review Statement Attending Statement Attending MD Statement: examined this patient Attending Assessment/Plan: PT WITH OLD SPT/DISCHARGE-TXD WITH ABX AND WILL LILELY NEED SPT CHANGE WITH CYSTOSCOPY
--- NOTE | 2016-08-16 07:21 | PN- Urology ---
Surgical Brief Attending Note Brief Attending Note: Patient known to Dr Fish. Please call his office for consult. I will also inform him of patient's admission
--- NOTE | 2016-08-16 07:26 | PN- Housestaff ---
Subjective Follow-up For: Urinary pain/discomfort Subjective: Patient seen and examined. He is seen lying flat in bed resting comfortably. He appears to be in no acute distress. He reports persistent pelvic discomfort and leakage from the suprapubic site. Otherwise he has no complaints. Additionally he denies any headache, fever, chills, chest pain, palpitations, shortness of breath, nausea, vomiting, diarrhea. Overnight he was noted by nursing staff that patient's suprapubic catheter was not draining any urine. Patient refused straight cath to assess for urinary retention. Bladder scan are still not available. She was noted that there was draining liquid, most likely urine from around the suprapubic catheter insertion site. Review of Systems Constitutional: Reports: see HPI. Objective Last 24 Hrs of Vital Signs/I&O Vital Signs Date Time Temp Pulse Resp B/P Pulse O2 O2 Flow FiO2 Ox Delivery Rate 08/16 0625 98.4 85 20 110/82 95 Room Air 08/15 2233 97.9 87 20 112/78 94 Room Air 08/15 1929 97.1 79 18 121/74 96 Room Air 08/15 1731 98.1 82 18 119/70 97 Room Air 08/15 1517 97.0 76 18 124/73 97 Room Air Intake & Output 08/16 1600 08/16 0800 08/16 0000 Intake Total 0 0 Output Total Balance 0 0 Intake, IV 0 Intake, Oral 0 Patient 78.925 kg Weight Physical Exam General Appearance: Alert, Oriented X3, Cooperative, No Acute Distress Other Physical Findings: General -well-developed, middle-aged man in no acute distress HEENT - NCAT, PERRL, EOMI, anicteric sclera Cardio - S1, S2 w/o murmurs/gallops/rubs Resp - CTA bilaterally w/o wheezing/rhochi/crackles GI - soft, nontender, nondistended, bowel sounds present, suprapubic catheter with scant amount of clear drainage without erythema or induration Neuro - Awake and alert, she is soft and slow, diminished muscle tone strength 2 /5 in bilateral upper extremities, 1/5 in bilateral lower extremities, paraplegic Extremities - no edema, pulses intact Current Medications: Current Medications Sig/Danitza Start time Last Medication Dose Route Stop Time Status Admin Acetaminophen 650 MG Q6P PRN 08/15 1999 AC PO Ampicillin 1,000 MG Q6 08/15 2359 AC 08/16 Sodium Chloride 100 ML IV 0532 Ampicillin 0 .STK-MED ONE 08/15 1728 DC .ROUTE Ampicillin 1,000 MG ONCE ONE 08/15 1715 DC 08/15 Sodium Chloride 100 ML IV 08/15 1744 1739 Ascorbic Acid 250 MG DAILY 08/16 1000 AC PO Atorvastatin Calcium 5 MG 1700 08/16 1700 AC PO Baclofen 10 MG 4 TIMES/DAY 08/15 2200 DC PO Carvedilol 12.5 MG BID 08/16 1000 AC PO Ceftriaxone Sodium 1,000 MG 08/16 2000 AC IV Ceftriaxone Sodium 1,000 MG DAILY 08/16 1000 DC IV Ceftriaxone Sodium 0 .STK-MED ONE 08/15 2005 DC .ROUTE Ceftriaxone Sodium 1,000 MG DAILY 08/15 1930 DC 08/15 IV 2010 Cyanocobalamin 250 MCG DAILY 08/16 1000 AC PO Enoxaparin Sodium 40 MG DAILY 08/16 1000 AC SC Fish Oil 1,050 MG DAILY 08/16 1000 AC PO Folic Acid 1 MG DAILY 08/16 1000 AC PO Loperamide HCl 2 MG Q3H PRN 08/15 1945 AC PO Nystatin 1 CATRACHO BID 08/16 1000 AC 08/16 TOP 0844 Potassium Chloride 20 MEQ BID 08/15 2200 AC 08/16 PO 0026 Sodium Chloride 1,000 ML Q13H 08/15 2000 DC 08/15 IV 08/16 0859 2045 Spironolactone 12.5 MG DAILY 08/16 1000 AC 08/16 PO 0840 Trimethoprim/ 0 .STK-MED ONE 08/15 1728 DC Sulfamethoxazole PO Trimethoprim/ 1 TAB ONCE ONE 08/15 1715 DC 08/15 Sulfamethoxazole PO 08/15 1716 1739 Last 24 Hrs of Lab/Parker Results Last 24 Hrs of Labs/Mics: Laboratory Tests 08/16/16 0845: Sodium Pending, Potassium Pending, Chloride Pending, Carbon Dioxide Pending, Anion Gap Pending, BUN Pending, Creatinine Pending, BUN/Creatinine Ratio Pending , PT 13.5 H, INR 1.29 H, CBC w Diff Pending, WBC Pending, RBC Pending, Hgb Pending, Hct Pending, MCV Pending, MCH Pending, RDW Pending, Plt Count Pending, MPV Pending, PUBS MCHC Pending 08/15/16 1837: Lactic Acid Cancelled 08/15/16 1620: Anion Gap 9, Estimated GFR > 60, BUN/Creatinine Ratio 22.5, Glucose 115 H, Lactic Acid 0.9, Calcium 8.9, Total Bilirubin 1.0, AST 14 L, ALT 18 L, Alkaline Phosphatase 59, Total Protein 6.5, Albumin 3.3 L, Globulin 3.2, Albumin/Globulin Ratio 1.0 L, CBC w Diff NO MAN DIFF REQ, RBC 5.18, MCV 78.9 L , MCH 25.7 L, RDW 16.0 H, MPV 9.3, Gran % 61.1, Lymphocytes % 28.1, Monocytes % 9.1, Eosinophils % 1.4, Basophils % 0.3, Absolute Granulocytes 3.3, Absolute Lymphocytes 1.5, Absolute Monocytes 0.5, Absolute Eosinophils 0.1, Absolute Basophils 0, PUBS MCHC 32.6 L Microbiology 08/15 1635 BLOOD: Blood Culture - RECD 08/15 1620 BLOOD: Blood Culture - RECD 08/15 1537 URINE ROUT: Urine Culture - COLB Assessment/Plan Assessment: Suprapubic catheter was noted to no longer be draining any urine overnight by nursing staff. Patient declined straight cath, bladder scanner unavailable. Dr. Fish saw the patient this morning and determined that the suprapubic catheter will be replaced in the OR sometime today. ID specification consultant recommended following patient off antibiotics for which ceftriaxone/ampicillin were discontinued. Urinary Tract Infection / Suprapubic Catheter: History of Multiple Sclerosis requiring vickers catheter and recently changed to suprapubic catheter for recurrent UTIs most likely secondary to chronic neurogenic bladder. Patient of Dr. Fish. He was given Bactrim and Ampicillin in the ED. -UCx growing E. Faecalis and P. stuartii -Ceftriaxone discontinued -Ampicillin discontinued -Nystatin -Urology consult -ID consult -F/U Blood/Urine cultures Hypotension: Patient was reportedly hypotensive at his independent living facility. BP range in ED 119-124/70-73. -Monitor Vitals, bolus as needed -Hold blood pressure medications, resume as tolerated Multiple Sclerosis: Reportedly diagnosed after the of his son in 1988. Subsequently developing paraplegia and neurogenic bladder. -Baclofen 10mg PO Q6H History of Systolic Congestive Heart Failure: No bilateral lower extremity swelling, JVD, or crackles on examination. Patient of Dr. Membreno. -Spironolactone 12.5mg PO Daily -KCl 20mEq PO BID Hypertension - hold Coreg/Carvedilol as above, monitor for high/low blood pressure Hyperlipidemia - continue Atorvastatin 5mg Pain Plain: -Acetaminophen 650mg PO Q6H PRN PAIN 1-3, FEVER Diet - NPO for suprapubic catheter replacement DVT PPx - Lovenox Code Status - FULL CODE Problem List: 1. Acute urinary tract infection Pain Ratin Pain Location: None Pain Goal: Remain pain free Pain Plan: As noted in plan Tomorrow's Labs & Rationales: Complete blood count Basic metabolic panel Consulting Request: Consulting Specialty: Urology
[2016-08-16 09:29] LABS: PT 13.5 SEC (9.4-12.5)
[2016-08-16 09:32] LABS: ABSOLUTE BASOPHIL COUNT 0 /CUMM (0.0-0.2); ABSOLUTE EOSINOPHIL COUNT 0.1 /CUMM (0.0-0.7); ABSOLUTE GRANULOCYTE CT 3.9 /CUMM (1.4-6.5); ABSOLUTE LYMPH COUNT 1.3 /CUMM (1.2-3.4); ABSOLUTE MONOCYTE COUNT 0.4 /CUMM (0.10-0.60); BASOPHIL % 0.5 % (0.0-2.0); EOSINOPHIL % 1.3 % (0-5); GRANULOCYTE % 67.4 % (42.2-75.2); HEMATOCRIT 39.2 % (42-52); MEAN CORPUSCULAR HGB 25.6 PG (27.0-31.0); MEAN CORPUSCULAR HGB CONC 32.4 G/DL (33.0-37.0); MEAN CORPUSCULAR VOLUME 78.9 FL (80.0-94.0); MEAN PLATELET VOLUME 9.6 FL (7.4-10.4); PLATELET COUNT 186 /CUMM (130-400); RED BLOOD CELL CT 4.97 /CUMM (4.70-6.10); WHITE BLOOD CELL COUNT 5.8 /CUMM (4.8-10.8)
--- NOTE | 2016-08-16 10:00 | NUR ---
NURSING NOTE: OR MADE AWARE PT IS UNABLE TO SIGN FOR CONSENT OR ACKNOWLEDGEMENT FORM DUE TO INABILITY TO HOLD PEN OR USE HANDS. ALSO MADE AWARE OF ISOLATION STATUS AT THIS TIME.
[2016-08-16 12:15] VITALS: BP 188/72
[2016-08-16 12:27] VITALS: BP 148/72
--- NOTE | 2016-08-16 12:29 | NUR ---
NURSING NOTE: PT CONTINUES TO REFUSE TO BE STRAIGH CATH FOR URINE SAMPLE. EVI PALMER #[id number] AWARE. PT INC AND DRAINING AROUDN SUPRAPUBIC DUE FOR LARGE AMOUNTS OF URINE. WILL CONTINUE TO MONITOR.
[2016-08-16 14:55] VITALS: BP 154/74
--- NOTE | 2016-08-16 15:01 | Cons- Infect Disease ---
General Information and HPI Consulting Request Date of Consult: 08/16/16 Requested By: RONN BERMEO MD Reason for Consult: Positive urine culture Source of Information: patient, old records History of Present Illness: This is a 56-year-old man, resident of an assisted living, with paraplegia secondary to multiple sclerosis, with a suprapubic cystostomy for over 8 years, changed typically every 5 weeks by his visiting nurse, most recently 2 weeks prior to admission, with the development of purple urine over the past several weeks and with decreased urine output over the last several days, begun on Ciprofloxacin 2 days prior to admission after a urine culture sent 3 days earlier was found to be positive for Enterococcus and Providencia, both resistant to Ciprofloxacin, admitted on August 15 after he was found to be hypotensive by the staff at the assisted living. On admission he was afebrile with blood pressure 124/73. Laboratory data revealed a white blood cell count of 5000, BUN/creatinine 9 and 0.4, with normal liver enzymes. He was given a dose of Bactrim in the ER and was then placed on Ampicillin and Ceftriaxone. He has remained afebrile since admission and offers no complaints at this time. Allergies/Medications Allergies: Coded Allergies: NO KNOWN ALLERGIES (12/28/15) Home Med List: Ascorbic Acid/Bioflavonoid/C (Maryann C 500 MG-200 MG-50 MG) 1 TAB TAB 1 CAP PO DAILY HEALTH PROMOTION (Reported) Baclofen 10 MG TABLET 1 TAB PO 4 TIMES/DAY MUSCLE SPASMS (Reported) Bifidobacterium Infantis (Align) 4 MG (1 BILLION CELL) CAPSULE 1 TAB PO DAILY supplement (Reported) Carvedilol Phosphate (Coreg Cr) 80 MG CPMP.24HR 1 CAP PO DAILY heart ( Reported) Cholecalciferol (Vitamin D3) 1,000 IU TAB 2 TAB PO DAILY SUPPLEMENT (Reported ) Cyanocobalamin (Vitamin B12) 500 MCG TAB 1 TAB PO DAILY HEALTH PROMOTION ( Reported) Folic Acid 1 MG TABLET 1 TAB PO DAILY SUPPLEMENT (Reported) Ibuprofen (Advil Liqui-Gels) 200 MG CAPSULE 2 CAP PO Q4H PRN PAIN (Reported) Interferon Beta-1a/Albumin (Avonex Admin Pack 30 Mcg Vl) 30 MCG (1 ML) KIT 1 ML IM QWED MS (Reported) Loperamide HCl (Loperamide) 2 MG CAPSULE 1 CAP PO Q3H PRN DIARHHEA (Reported) [leon red 3] (Unknown Strength) (Unknown Dose) PO DAILY supplemt (Reported) Cushing-3 Fatty Acids/Fish Oil (Fish Oil 1,000 MG Softgel) 1 EACH CAPSULE 1 CAP PO DAILY SUPPLEMENT (Reported) Pantoprazole Sodium 40 MG TABLET.DR 1 TAB PO DAILY AC GI (Reported) Potassium Chloride (Klor-Con M20) 20 MEQ TAB.ER.PRT 1 TAB PO BID SUPPLEMENT ( Reported) Prednisone 20 MG TABLET 1 TAB PO DAILY PRN ms exacerbation (Reported) Pyridostigmine Nordman (Mestinon) 60 MG TABLET 1 TAB PO TID intestinal obstruction Please talk to your PCP immediately about resuming the medication. Saccharomyces Boulardii (Florastor) 250 MG CAPSULE 1 CAP PO BID PROBIOTIC ( Reported) Simvastatin (Simvastatin*) 10 MG TABLET 1 TAB PO QPM CHOLESTEROL (Reported) Spironolactone (Aldactone 25 MG Tablet) 25 MG TABLET 1 TAB PO DAILY DIURETIC (Reported) Zinc Gluconate (ZINC) 50 MG TABLET 1 TAB PO DAILY SUPPLEMENT (Reported) Past History Travel History Traveled to [place] past 21 day No Medical History Blood Transfusion Hx: No Neurological: multiple sclerosis EENT: NONE Cardiovascular: cardiomyopathy, hypertension, CONGESTIVE HEART FAILURE HPL CARDIOMYOPATHY Respiratory: NONE Gastrointestinal: PSEUDO OBSTRUCTION ILEUS Hepatic: NONE Renal: SUPRAPUBIC TUBE-FREQUENT OBSTRUCTION. HYPOKALEMIA, recurrent urinary tract infections Musculoskeletal: NONE Psychiatric: NONE Endocrine: NONE Blood Disorders: NONE Cancer(s): NONE HEARINGS REPORTER/Reproductive: N/A History of MRSA: No History of VRE: Yes History of CDIFF: No Isolation History: Contact Influenza Vaccine: 03/31/16 Surgical History Surgical History: SUPRAPUBIC CATHETER TONSILS Family History Relations & Conditions If Any: Relation not specified for: *No pertinent family history Psychosocial History Where Do You Live? Intermediate Care Facil. Who Do You Live With? parent Services at Home: Home Health Aide, Nursing Smoking Status: Former Smoker ETOH Use: occasional use Illicit Drug Use: denies illicit drug use Functional Ability ADLs Needs Assist: dressing, eating, toileting, bathing. Ambulation: non-ambulatory IADLs Needs Assist: shopping, housework, finances, food prep, telephone, transportation, medication admin. Review of Systems Review of Systems Constitutional: Denies: chills, fever. All Other Systems: Reviewed and Negative Exam & Diagnostic Data Last 24 Hrs of Vital Signs/I&O Vital Signs Date Time Temp Pulse Resp B/P Pulse O2 O2 Flow FiO2 Ox Delivery Rate 08/16 1227 148/72 08/16 1215 98.1 94 19 188/72 94 Room Air 08/16 0942 88 112/84 08/16 0625 98.4 85 20 110/82 95 Room Air 08/15 2233 97.9 87 20 112/78 94 Room Air 08/15 1929 97.1 79 18 121/74 96 Room Air 08/15 1731 98.1 82 18 119/70 97 Room Air 08/15 1517 97.0 76 18 124/73 97 Room Air Intake & Output 08/16 1600 08/16 0800 08/16 0000 Intake Total 0 0 0 Output Total 50 Balance -50 0 0 Intake, IV 0 Intake, Oral 0 0 Output, Urine 50 Patient 174 lb Weight Physical Exam Other Physical Findings: He is awake and alert in no acute distress. He is afebrile. Skin reveals no rash. HEENT exam is negative. Neck is supple with no adenopathy. Lungs are clear. Heart regular rhythm with no murmur. Abdomen is soft, nontender with positive bowel sounds; suprapubic catheter site with no inflammation, with minimal urine, purple colored, in the bag. Back no CVA tenderness. Extremities no cyanosis, clubbing or edema. Neuro 0/5 strength of the lower extremities; 1/ 5 of the left upper extremity and 1-2/5 of the right upper extremity. Last 24 Hours of Lab Results: Laboratory Tests 08/16 08/15 08/15 0845 1953 1837 Chemistry Sodium (137 - 145 mmol/L) 140 Potassium (3.5 - 5.1 mmol/L) 4.2 Chloride (98 - 107 mmol/L) 106 Carbon Dioxide (22 - 30 mmol/L) 26 Anion Gap (5 - 16) 8 BUN (9 - 20 mg/dL) 8 L Creatinine (0.7 - 1.2 mg/dL) 0.4 L Estimated GFR (>60 ml/min) > 60 BUN/Creatinine Ratio (7 - 25 %) 20.0 Lactic Acid Cancelled Coagulation PT (9.4 - 12.5 SEC) 13.5 H INR (0.90 - 1.17) 1.29 H Hematology CBC w Diff NO MAN DIFF REQ WBC (4.8 - 10.8 /CUMM) 5.8 RBC (4.70 - 6.10 /CUMM) 4.97 Hgb (14.0 - 18.0 G/DL) 12.7 L Hct (42 - 52 %) 39.2 L MCV (80.0 - 94.0 FL) 78.9 L MCH (27.0 - 31.0 PG) 25.6 L RDW (11.5 - 14.5 %) 16.0 H Plt Count (130 - 400 /CUMM) 186 MPV (7.4 - 10.4 FL) 9.6 Gran % (42.2 - 75.2 %) 67.4 Lymphocytes % (20.5 - 51.1 %) 23.2 Monocytes % (1.7 - 9.3 %) 7.6 Eosinophils % (0 - 5 %) 1.3 Basophils % (0.0 - 2.0 %) 0.5 Absolute Granulocytes (1.4 - 6.5 /CUMM) 3.9 Absolute Lymphocytes (1.2 - 3.4 /CUMM) 1.3 Absolute Monocytes (0.10 - 0.60 /CUMM) 0.4 Absolute Eosinophils (0.0 - 0.7 /CUMM) 0.1 Absolute Basophils (0.0 - 0.2 /CUMM) 0 PUBS MCHC (33.0 - 37.0 G/DL) 32.4 L Urines Urine Color Cancelled Urine Clarity Cancelled Urine pH Cancelled Ur Specific Hall Cancelled Urine Protein Cancelled Urine Ketones Cancelled Urine Nitrite Cancelled Urine Bilirubin Cancelled Urine Urobilinogen Cancelled Ur Leukocyte Esterase Cancelled Ur Microscopic Cancelled Urine Hemoglobin Cancelled Urine Glucose Cancelled 08/15 1620 Chemistry Sodium (137 - 145 mmol/L) 139 Potassium (3.5 - 5.1 mmol/L) 3.8 Chloride (98 - 107 mmol/L) 102 Carbon Dioxide (22 - 30 mmol/L) 28 Anion Gap (5 - 16) 9 BUN (9 - 20 mg/dL) 9 Creatinine (0.7 - 1.2 mg/dL) 0.4 L Estimated GFR (>60 ml/min) > 60 BUN/Creatinine Ratio (7 - 25 %) 22.5 Glucose (65 - 99 mg/dL) 115 H Lactic Acid (0.7 - 2.1 mmol/L) 0.9 Calcium (8.4 - 10.2 mg/dL) 8.9 Total Bilirubin (0.2 - 1.3 mg/dL) 1.0 AST (17 - 59 U/L) 14 L ALT (21 - 72 U/L) 18 L Alkaline Phosphatase (< 127 U/L) 59 Total Protein (6.3 - 8.2 g/dL) 6.5 Albumin (3.5 - 5.0 g/dL) 3.3 L Globulin (1.9 - 4.2 gm/dL) 3.2 Albumin/Globulin Ratio (1.1 - 2.2 %) 1.0 L Hematology CBC w Diff NO MAN DIFF REQ WBC (4.8 - 10.8 /CUMM) 5.4 RBC (4.70 - 6.10 /CUMM) 5.18 Hgb (14.0 - 18.0 G/DL) 13.3 L Hct (42 - 52 %) 40.8 L MCV (80.0 - 94.0 FL) 78.9 L MCH (27.0 - 31.0 PG) 25.7 L RDW (11.5 - 14.5 %) 16.0 H Plt Count (130 - 400 /CUMM) 209 MPV (7.4 - 10.4 FL) 9.3 Gran % (42.2 - 75.2 %) 61.1 Lymphocytes % (20.5 - 51.1 %) 28.1 Monocytes % (1.7 - 9.3 %) 9.1 Eosinophils % (0 - 5 %) 1.4 Basophils % (0.0 - 2.0 %) 0.3 Absolute Granulocytes (1.4 - 6.5 /CUMM) 3.3 Absolute Lymphocytes (1.2 - 3.4 /CUMM) 1.5 Absolute Monocytes (0.10 - 0.60 /CUMM) 0.5 Absolute Eosinophils (0.0 - 0.7 /CUMM) 0.1 Absolute Basophils (0.0 - 0.2 /CUMM) 0 PUBS MCHC (33.0 - 37.0 G/DL) 32.6 L Last 24 Hours of Parker Results: Blood cultures August 15 negative Assessment/Plan Assessment/Plan Impression: This is a 56-year-old man with multiple sclerosis, paraplegia, status post suprapubic cystostomy, with recurrent urinary tract infections in the past, recently found to have purple colored urine and begun on Ciprofloxacin for a positive urine culture which grew Enterococcus and Providencia, both resistant to Ciprofloxacin, admitted on August 15 with decreased urine output and found to be afebrile with a normal white blood cell count. There was a report of hypotension at the assisted living facility, but his blood pressure has been normal since admission. The significance of the positive urine culture is unclear and, in the absence of any fever or leukocytosis, and with no evidence of any hemodynamic compromise, feel that this likely represent colonization and, therefore, does not require treatment. He is scheduled for a cystoscopy and suprapubic catheter change later today and can receive antibiotic prophylaxis prior to this procedure, but he can be followed off antibiotics postoperatively. The significance of the purple colored urine is unclear. It may be related to metabolism of food or medications and would defer further evaluation to Urology. Suggestion: 1. Await cystoscopy and change of suprapubic catheter later today 2. Can redose with Ampicillin and Ceftriaxone prior to the procedure, but would discontinue these antibiotics postop and follow off antibiotics Consult Acknowledgment - Thank you for your consult request.
--- NOTE | 2016-08-16 15:19 | PN- Att Addend ---
Attending MD Review Statement Attending Statement Attending MD Statement: examined this patient, discuss w/resident/PA/LOOP TACKER, agreed w/resident/PA/LOOP TACKER, reviewed EMR data (avail) Attending Assessment/Plan: 56 year old man with past medical history significant for multiple sclerosis, paraplegia, congestive heart failure, cardiomyopathy, and chronic indwelling suprapubic catheter brought in by ambulance for evaluation of low blood pressure and urinary tract symptoms. records there is allergic- purple colored urine. Pt seen by urology and plan is to do cystoscopy today and replace the suprapubic catheter. currently on iv ceftriaxone for urine culture positive for providentia and enterococcus. Will dc abx after the cystoscopy and replacement of suprapubic catheter. Will watch off the abx.
--- NOTE | 2016-08-16 15:45 | NUR ---
NURSING NOTE: PT OFF FLOOR VIA STRETCHER AT 1454. PT A&O, VSS.
--- NOTE | 2016-08-16 16:29 | Operative Report ---
Operative/Inv Procedure Report Surgery Date: 08/16/16 Name of Procedure: Cystoscopy, suprapubic tube change. Pre-Operative Diagnosis: Hematuria, decreased urine output from old SP tube. Post-Operative Diagnosis: Same Estimated Blood Loss: scant Surgeon/Drop Count Associate: MD LOLIS, [facility] Anesthesia: moderate sedation Drains: 20 [place] Huber catheter used as a suprapubic tube, 10CC BALLOON Complications: None Operative/Procedure Note Note: The patient was taken to the operative room and placed on the OR table in supine position. Timeout was performed in order to confirm the patient's identity, procedure, anesthesia, antibiotics, as well as any other pertinent information. After adequate anesthesia, and antibiotics, the patient was then placed lithotomy stirrups draped and prepped in the usual surgical fashion. A 22 [place] cystoscope sheath with a 30 angle lens was inserted into the urethra and advanced into the bladder without difficulty. The bladder was noted to have the findings as discussed above. The bladder was then hydrodistended 2 with the irrigation fluid at 40 cm above the symphysis pubis. No evidence of tumor, increased petechiae, nor Hunner's ulceration was noted. Both ureteral orifices had clear reflux in their orthotopic position. No terminal bleed with drainage. Bladder capacity was overall normal. T With the bladder full, the old suprapubic tube was removed. A new 20 [place] Huber catheter was inserted into the suprapubic tube site, and advanced into the bladder under direct cystoscopic visualization. The 10 mL balloon was then filled with sterile water. The suprapubic tube drained well, and a new Huber bag was placed. The bladder was then drained, and the cystoscope was removed under direct visualization. The patient tolerated procedure well and was taken to recovery room in satisfactory condition. Findings: EDEMATOUS MUCOSA OF BLADDER, NO TUMOR/STONE Discharge Disposition: PACU Additional Comments: 1 g Rocephin given intravenously licensed nurse practitioner to OR.
[2016-08-16 17:00] VITALS: BP 108/68
[2016-08-17 00:03] VITALS: BP 100/70
--- NOTE | 2016-08-17 07:22 | PN- Housestaff ---
See Addendum Subjective Follow-up For: Urinary pain/discomfort Subjective: Patient seen and examined. He is seen lying flat in bed resting. He appears to be in no acute distress. He reports sleeping well and is complaining of pain where the suprapubic catheter was replaced yesterday. Otherwise he denies any other complaints. Additionally he denies any headache, fever, chills, chest pain, palpitations, shortness of breath, cough, nausea, vomiting, diarrhea. No overnight events reported. Review of Systems Constitutional: Reports: see HPI. Objective Last 24 Hrs of Vital Signs/I&O Vital Signs Date Time Temp Pulse Resp B/P Pulse O2 O2 Flow FiO2 Ox Delivery Rate 08/17 0826 98.6 82 20 116/68 95 Room Air 08/17 0003 98.8 95 20 100/70 95 Room Air 08/16 2207 100 102/62 08/16 1700 97.6 88 18 108/68 95 Room Air Room Air 08/16 1606 98.7 76 20 93 Room Air 08/16 1455 98.1 88 18 154/74 96 Room Air Room Air Intake & Output 08/17 1600 08/17 0800 08/17 0000 Intake Total 120 960 Output Total 200 950 Balance -80 10 Intake, Oral 120 960 Output, Urine 200 950 Physical Exam General Appearance: Alert, Oriented X3, Cooperative, No Acute Distress Other Physical Findings: General -well-developed, middle-aged male in no acute distress HEENT - NCAT, PERRL, EOMI, anicteric sclera Cardio - S1, S2 w/o murmurs/gallops/rubs Resp - CTA bilaterally w/o wheezing/rhochi/crackles GI - soft, nontender, nondistended, bowel sounds present, suprapubic catheter in place without any surrounding drainage or erythema Neuro - Awake and alert, CN II - XII grossly intact Extremities - no edema, pulses intact Current Medications: Current Medications Sig/Danitza Start time Last Medication Dose Route Stop Time Status Admin Acetaminophen 650 MG Q6P PRN 08/15 1999 AC PO Ascorbic Acid 250 MG DAILY 08/16 1000 AC 08/17 PO 0943 Atorvastatin Calcium 5 MG 1700 08/16 1700 AC PO Carvedilol 12.5 MG BID 08/16 1000 AC 08/17 PO 0943 Ceftriaxone Sodium 1,000 MG 08/16 CAN IV Cyanocobalamin 250 MCG DAILY 08/16 1000 AC 08/17 PO 0944 Enoxaparin Sodium 40 MG DAILY 08/16 1000 AC 08/17 SC 0944 Fish Oil 1,050 MG DAILY 08/16 1000 AC 08/17 PO 0944 Folic Acid 1 MG DAILY 08/16 1000 AC PO Loperamide HCl 2 MG Q3H PRN 08/15 1945 AC PO Nystatin 1 CATRACHO BID 08/16 1000 AC 08/17 TOP 0944 Patient Medication 1 ED .STK-MED ONE 08/17 1415 ME Teaching ED 08/17 1416 Potassium Chloride 20 MEQ BID 08/15 2200 AC 08/17 PO 0943 Spironolactone 12.5 MG DAILY 08/16 1000 AC 08/17 PO 0945 Last 24 Hrs of Lab/Parker Results Last 24 Hrs of Labs/Mics: Laboratory Tests 08/17/16 0700: Anion Gap 9, Estimated GFR > 60, BUN/Creatinine Ratio 16.7, CBC w Diff NO MAN DIFF REQ, RBC 4.91, MCV 79.2 L, MCH 26.1 L, RDW 16.3 H, MPV 9.7, Gran % 65.2, Lymphocytes % 25.2, Monocytes % 8.4, Eosinophils % 0.8, Basophils % 0.4, Absolute Granulocytes 4.0, Absolute Lymphocytes 1.5, Absolute Monocytes 0.5, Absolute Eosinophils 0.1, Absolute Basophils 0, PUBS MCHC 33.0 Assessment/Plan Assessment: Suprapubic catheter was replaced by Dr. Fish yesterday and a cystoscopy was performed. The catheter bag is now containing clear yellow urine with good output. He is still maintained off of antibiotics and is to be discharged to home today with instruction to follow-up with Dr. Fish as an outpatient. Urinary Tract Infection / Suprapubic Catheter: History of Multiple Sclerosis requiring vickers catheter and recently changed to suprapubic catheter for recurrent UTIs most likely secondary to chronic neurogenic bladder. Patient of Dr. Fish. He was given Bactrim and Ampicillin in the ED. -UCx growing E. Faecalis and P. stuartii -Nystatin -Urology consult -ID consult -F/U Blood/Urine cultures Hypotension: Patient was reportedly hypotensive at his independent living facility. BP range in ED 119-124/70-73. -Monitor Vitals, bolus as needed -Hold blood pressure medications, resume as tolerated Multiple Sclerosis: Reportedly diagnosed after the of his son in 1988. Subsequently developing paraplegia and neurogenic bladder. -Baclofen 10mg PO Q6H History of Systolic Congestive Heart Failure: No bilateral lower extremity swelling, JVD, or crackles on examination. Patient of Dr. Membreno. -Spironolactone 12.5mg PO Daily -KCl 20mEq PO BID Hypertension - hold Coreg/Carvedilol as above, monitor for high/low blood pressure Hyperlipidemia - continue Atorvastatin 5mg Pain Plain: -Acetaminophen 650mg PO Q6H PRN PAIN 1-3, FEVER Diet - NPO for suprapubic catheter replacement DVT PPx - Lovenox Code Status - FULL CODE Problem List: 1. UTI (lower urinary tract infection) Pain Ratin Pain Location: Pelvis Pain Goal: Pain 4 or less Pain Plan: As noted in plan Tomorrow's Labs & Rationales: None Consulting Request: Consulting Specialty: Urology
--- NOTE | 2016-08-17 07:39 | Patient Discharge Instructions ---
Discharge Instructions General Discharge Information Special Instructions: Follow up with your primary care provider and your urologist within two weeks of discharge. Continue all your home medications. Acute Coronary Syndrome Inclusion Criteria At DC or during hospital stay patient has or had the following: ACS DIAGNOSIS No Discharge Core Measures Meds if any: Prescribed or Continued at Discharge Meds if any: NOT Prescribed or Continued at Discharge Congestive Heart Failure Inclusion Criteria At DC or during hospital stay patient has or had the following: CHF DIAGNOSIS No Discharge Core Measures Meds if any: Prescribed or Continued at Discharge Meds if any: NOT Prescribed or Continued at Discharge Cerebrovascular accident Inclusion Criteria At DC or during hospital stay patient has or had the following: CVA/TIA Diagnosis No Discharge Core Measures Meds if any: Prescribed or Continued at Discharge Meds if any: NOT Prescribed or Continued at Discharge Venous thromboembolism Inclusion Criteria VTE Diagnosis No VTE Type NONE VTE Confirmed by (Test) NONE Discharge Core Measures - Per Current guidelines, there needs to be overlap - treatment for the first 5 days of Warfarin therapy. - If discharged on Warfarin prior to 5 days of - overlap therapy, the patient will need to be - assessed for post discharge needs including - *Post discharge parental anticoagulation - *Warfarin and/or parental anticoagulation education - *Follow up date to check INR post discharge At least 5 days overlap therapy as Inpatient No Meds if any: Prescribed or Continued at Discharge Note: Overlap Therapy is Warfarin and Anticoagulant Meds if any: NOT Prescribed or Continued at Discharge
[2016-08-17 08:26] VITALS: BP 116/68
[2016-08-17 08:30] LABS: ABSOLUTE BASOPHIL COUNT 0 /CUMM (0.0-0.2); ABSOLUTE EOSINOPHIL COUNT 0.1 /CUMM (0.0-0.7); ABSOLUTE LYMPH COUNT 1.5 /CUMM (1.2-3.4); ABSOLUTE MONOCYTE COUNT 0.5 /CUMM (0.10-0.60); BASOPHIL % 0.4 % (0.0-2.0); EOSINOPHIL % 0.8 % (0-5); GRANULOCYTE % 65.2 % (42.2-75.2); HEMATOCRIT 38.9 % (42-52); MEAN CORPUSCULAR HGB 26.1 PG (27.0-31.0); MEAN CORPUSCULAR VOLUME 79.2 FL (80.0-94.0); MEAN PLATELET VOLUME 9.7 FL (7.4-10.4); PLATELET COUNT 189 /CUMM (130-400); RBC DISTRIBUTION WIDTH 16.3 % (11.5-14.5); RED BLOOD CELL CT 4.91 /CUMM (4.70-6.10); WHITE BLOOD CELL COUNT 6.1 /CUMM (4.8-10.8)
--- NOTE | 2016-08-17 13:59 | PN- Infect Dx ---
Subjective Subjective: Afebrile. He noted some urethral discomfort overnight which has resolved. Objective Last 24 Hrs of Vital Signs/I&O Vital Signs Date Time Temp Pulse Resp B/P Pulse O2 O2 Flow FiO2 Ox Delivery Rate 08/17 0826 98.6 82 20 116/68 95 Room Air 08/17 0003 98.8 95 20 100/70 95 Room Air 08/16 2207 100 102/62 08/16 1700 97.6 88 18 108/68 95 Room Air Room Air 08/16 1606 98.7 76 20 93 Room Air 08/16 1455 98.1 88 18 154/74 96 Room Air Room Air Intake & Output 08/17 1600 08/17 0800 08/17 0000 Intake Total 120 960 Output Total 200 950 Balance -80 10 Intake, Oral 120 960 Output, Urine 200 950 Physical Exam Other Physical Findings: He appears comfortable in no acute distress Lungs are clear Abdomen is soft, nontender with positive bowel sounds; suprapubic tube in place, with no inflammation at the site and with clear urine in the bag Extremities no cyanosis, clubbing or edema Results Last 24 Hours of Lab Results: Laboratory Tests 08/17 0700 Chemistry Sodium (137 - 145 mmol/L) 141 Potassium (3.5 - 5.1 mmol/L) 4.3 Chloride (98 - 107 mmol/L) 105 Carbon Dioxide (22 - 30 mmol/L) 27 Anion Gap (5 - 16) 9 BUN (9 - 20 mg/dL) 10 Creatinine (0.7 - 1.2 mg/dL) 0.6 L Estimated GFR (>60 ml/min) > 60 BUN/Creatinine Ratio (7 - 25 %) 16.7 Hematology CBC w Diff NO MAN DIFF REQ WBC (4.8 - 10.8 /CUMM) 6.1 RBC (4.70 - 6.10 /CUMM) 4.91 Hgb (14.0 - 18.0 G/DL) 12.8 L Hct (42 - 52 %) 38.9 L MCV (80.0 - 94.0 FL) 79.2 L MCH (27.0 - 31.0 PG) 26.1 L RDW (11.5 - 14.5 %) 16.3 H Plt Count (130 - 400 /CUMM) 189 MPV (7.4 - 10.4 FL) 9.7 Gran % (42.2 - 75.2 %) 65.2 Lymphocytes % (20.5 - 51.1 %) 25.2 Monocytes % (1.7 - 9.3 %) 8.4 Eosinophils % (0 - 5 %) 0.8 Basophils % (0.0 - 2.0 %) 0.4 Absolute Granulocytes (1.4 - 6.5 /CUMM) 4.0 Absolute Lymphocytes (1.2 - 3.4 /CUMM) 1.5 Absolute Monocytes (0.10 - 0.60 /CUMM) 0.5 Absolute Eosinophils (0.0 - 0.7 /CUMM) 0.1 Absolute Basophils (0.0 - 0.2 /CUMM) 0 PUBS MCHC (33.0 - 37.0 G/DL) 33.0 Last 24 Hours of Parker Results: Blood cultures August 15 negative Assessment/Plan Impression: Stable status post cystoscopy and replacement of suprapubic cystostomy yesterday with temperatures and white blood cell count remaining normal off antibiotics. Of interest his urine has cleared following the cystoscopy. Suggestion: 1. Continue to follow off antibiotics
--- NOTE | 2016-08-17 14:53 | NUR ---
wound care: requested by nursing techn to assess pt for ? 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
--- NOTE | 2016-08-17 14:55 | Discharge Summary ---
Visit Information Visit Dates Admission Date: 08/15/16 Discharge Date: 08/19/16 Hospital Course Course Attending Physician: JEAN-CLAUDE ZAMORA,RONN Correa Primary Care Physician: LAWANDA SHOOK MD Consulting Request: Consulting Specialty: Urology Hospital Course: 56-year-old male brought in by ambulance from his assisted care facility for evaluation of low blood pressure and "purple urine". Patient was at home at the independent living facility where he resides when he witnessed his mother collapse. He pressed the alert button for the facility staff responded to the event. Patient was noticed to be shaken up where her vital signs taken demonstrated a reported "low blood pressure" and it was noted that the suprapubic catheter was draining purple urine. Patient was taken to the [facility] ED for evaluation. Vital signs on admission 97.0-98.1, HR 76-87, RR 18-20, BP 112-124/70-78, 94-97% on room air Semination on admission demonstrated an alert and oriented middle-aged male in no acute distress with benign cardiopulmonary and abdominal examination. Suprapubic catheter in place without any obvious drainage, erythema or induration with an empty suprapubic catheter back. Neurologic examination demonstrated slow/soft speech with paraplegia and diminished muscle tone that is reportedly baseline. Patient was started on intravenous antibiotics and a urology consult was placed. He was admitted to the general medicine floor for further evaluation. Urinary Tract Infection / Suprapubic Catheter: History of Multiple Sclerosis requiring vickers catheter and recently changed to suprapubic catheter for recurrent UTIs most likely secondary to chronic neurogenic bladder. Urine culture obtained just prior to admission were growing Enterococcus faecalis and P. stuartii. Patient of Dr. Fish. He was given Bactrim and Ampicillin in the ED. patient was given ceftriaxone and ampicillin and was discontinued from antibiotics after the cystoscopy/suprapubic catheter exchange by Dr. Fish. Patient was discharged back to his [facility] facility with instruction to follow-up with Dr. Fish and his primary care provider after discharge and to be followed off antibiotics. Blood cultures on discharge were no growth to date. Multiple Sclerosis: Reportedly diagnosed after the of his son in 1988. Subsequently developing paraplegia and neurogenic bladder. He was continued on his normal home medications for multiple sclerosis. History of Systolic Congestive Heart Failure: No bilateral lower extremity swelling, JVD, or crackles on examination. Patient of Dr. Membreno. Patient was instructed follow-up with Dr. Membreno after discharge and to continue taking his home medications. Allergies: Coded Allergies: NO KNOWN ALLERGIES (12/28/15) Significant Procedures: PATIENT CARE UNIT CONFIDENTIAL COPY Operative/Inv Procedure Report Surgery Date: 08/16/16 Name of Procedure: Cystoscopy, suprapubic tube change. Pre-Operative Diagnosis: Hematuria, decreased urine output from old SP tube. Post-Operative Diagnosis: Same Estimated Blood Loss: scant Surgeon/Business Office Associate: MD LOLIS, [facility]-[facility] Anesthesia: moderate sedation Drains: 20 Uzbek Vickers catheter used as a suprapubic tube, 10CC BALLOON Complications: None Operative/Procedure Note Note: The patient was taken to the operative room and placed on the OR table in supine position. Timeout was performed in order to confirm the patient's identity, procedure, anesthesia, antibiotics, as well as any other pertinent information. After adequate anesthesia, and antibiotics, the patient was then placed lithotomy stirrups draped and prepped in the usual surgical fashion. A 22 Uzbek cystoscope sheath with a 30 angle lens was inserted into the urethra and advanced into the bladder without difficulty. The bladder was noted to have the findings as discussed above. The bladder was then hydrodistended 2 with the irrigation fluid at 40 cm above the symphysis pubis. No evidence of tumor, increased petechiae, nor Hunner's ulceration was noted. Both ureteral orifices had clear reflux in their orthotopic position. No terminal bleed with drainage. Bladder capacity was overall normal. T With the bladder full, the old suprapubic tube was removed. A new 20 Uzbek Vickers catheter was inserted into the suprapubic tube site, and advanced into the bladder under direct cystoscopic visualization. The 10 mL balloon was then filled with sterile water. The suprapubic tube drained well, and a new Vickers bag was placed. The bladder was then drained, and the cystoscope was removed under direct visualization. The patient tolerated procedure well and was taken to recovery room in satisfactory condition. Disposition Summary Disposition Principal Diagnosis: Infected suprapubic catheter Additional Diagnosis: Urinary tract infection Discharge Disposition: SNF Discharge Instructions General Discharge Information Code Status: Full Code Patient's Diet: Regular diet Patient's Activity: Activity as tolerated or as recommended per physical therapy assessment Follow-Up Instructions/Appts: Follow up with your primary care provider and your urologist within two weeks of discharge. Continue all your home medications. Medications at Discharge Discharge Medications: Continue taking these medications: Ascorbic Acid/Bioflavonoid/C (Maryann C 500 MG-200 MG-50 MG) 1 TAB TAB 1 Capsule ORAL DAILY Days = 30 Comments: Last Taken: 02/26/14 Time: 5:15 PM Pantoprazole Sodium (Pantoprazole Sodium) 40 MG TABLET.DR 1 Tablet ORAL DAILY BEFORE BREAKFAST Qty = 90 Cyanocobalamin (Vitamin B12) 500 MCG TAB 1 Tablet ORAL DAILY Days = 30 Comments: Last Taken: 02/26/14 Time: 2 PM Cholecalciferol (Vitamin D3) 1,000 IU TAB 2 Tablet ORAL DAILY Days = 30 Comments: Last Taken: 02/26/14 Time: 2 PM Zinc Gluconate (ZINC) 50 MG TABLET 1 Tablet ORAL DAILY Days = 30 Comments: Last Taken: 02/26/14 Time: 5:30 PM Saccharomyces Boulardii (Florastor) 250 MG CAPSULE 1 Capsule ORAL TWICE DAILY Comments: NOT GIVEN THIS ADMISSION Spironolactone (Aldactone 25 MG Tablet) 25 MG TABLET 1 Tablet ORAL DAILY [place]-3 Fatty Acids/Fish Oil (Fish Oil 1,000 MG Softgel) 1 EACH CAPSULE 1 Capsule ORAL DAILY Comments: Last Taken:08/19/16 Time:9:56A.M Folic Acid (Folic Acid) 1 MG TABLET 1 Tablet ORAL DAILY Comments: Last Taken:08/18/16 Time:8:33A.M Simvastatin (Simvastatin*) 10 MG TABLET 1 Tablet ORAL Every night Comments: Last Taken:08/18/16 Time:5P.M Pyridostigmine [place] (Mestinon) 60 MG TABLET 1 Tablet ORAL THREE TIMES DAILY Qty = 30 Instructions: Please talk to your PCP immediately about resuming the medication. Comments: Last Taken:NOT GIVEN THIS ADMISSION Time: Potassium Chloride (Klor-Con M20) 20 MEQ TAB.ER.PRT 1 Tablet ORAL TWICE DAILY Comments: Last Taken:08/19/16 Time:9:56A.M Interferon Beta-1a/Albumin (Avonex Admin Pack 30 Mcg Vl) 30 MCG (1 ML) KIT 1 Milliliters INTRAMUSC EVERY MONDAY Comments: NOT GIVEN THIS ADMISSION Baclofen (Baclofen) 10 MG TABLET 1 Tablet ORAL 4 TIMES A DAY Comments: Last Taken:NOT GIVEN THIS ADMISSION Time:PER MAR Loperamide HCl (Loperamide) 2 MG CAPSULE 1 Capsule ORAL Q3H as needed for DIARHHEA Comments: NOT GIVNE THIS ADMISSION Ibuprofen (Advil Liqui-Gels) 200 MG CAPSULE 2 Capsule ORAL Q4H as needed for PAIN Comments: NOT GIVEN THIS ADMISSION Carvedilol Phosphate (Coreg Cr) 80 MG CPMP.24HR 1 Capsule ORAL DAILY Comments: Last Taken:08/19/16 Time:9:56A.M Prednisone (Prednisone) 20 MG TABLET 1 Tablet ORAL DAILY as needed for ms exacerbation Comments: Last Taken:NOT GIVEN THIS ADMISSION Time: Bifidobacterium Infantis (Align) 4 MG (1 BILLION CELL) CAPSULE 1 Tablet ORAL DAILY Days = 1 Comments: Last Taken:NOT GIVEN THIS ADMISSION Time: [leon red 3] (Unknown Strength) Unknown Dose ORAL DAILY Comments: Last Taken:08/19/16 Time:9:56A.M GIVEN FISH OIL INSTEAD Copies To: TACHO ZAMORA,BELEM HAMLIN MD, MD,LAWANDA Ash
[2016-08-17 16:16] VITALS: BP 118/72
--- NOTE | 2016-08-17 18:22 | PN- Urology ---
Surgical Brief Attending Note Brief Attending Note: PT COMFORTABLE-NO COMPLAINTS. VSS AFEBRILE. LABS WNL. U/O ADEQUATE VIA NEW SPT. DC PLAN PER MED.
[2016-08-18 00:43] VITALS: BP 118/62
--- NOTE | 2016-08-18 07:14 | PN- Housestaff ---
EVI HURST MD 08/18/16 0714: Subjective Follow-up For: Urinary pain/discomfort Subjective: Patient seen and examined. He is seen lying flat in bed resting comfortably. He appears to be in no acute distress. He is still asking about his "blood pressure", but otherwise says he feels fine. He does admit to increased sensitivity around the suprapubic catheter insertion site and reports it feels "obstructed". Otherwise he denies any headache, fever, chills, chest pain, palpitations, shortness of breath, nausea, vomiting, diarrhea. Patient was supposed to be discharged back to home yesterday, however they have a policy in place where the patient must have his "home health manager" present regardless of their ability to care for one another. His mother is also a patient in the hospital whom is reportedly being discharged today as well. Review of Systems Constitutional: Reports: see HPI. Objective Last 24 Hrs of Vital Signs/I&O Vital Signs Date Time Temp Pulse Resp B/P Pulse O2 O2 Flow FiO2 Ox Delivery Rate 08/18 0833 112/60 08/18 0801 98.9 85 20 112/60 96 Room Air 08/18 0043 99.2 89 20 118/62 95 08/17 2117 90 126/70 08/17 1616 98.4 90 17 118/72 92 Room Air Intake & Output 08/18 1600 08/18 0800 08/18 0000 Intake Total 120 120 Output Total 200 350 Balance -80 -230 Intake, Oral 120 120 Output, Urine 200 350 Physical Exam General Appearance: Alert, Oriented X3, Cooperative, No Acute Distress Other Physical Findings: General -well-developed, frail middle-aged male in no acute distress HEENT - NCAT, PERRL, EOMI, anicteric sclera Cardio - S1, S2 w/o murmurs/gallops/rubs Resp - CTA bilaterally w/o wheezing/rhochi/crackles GI - soft, nontender, nondistended, bowel sounds present -suprapubic catheter in place without any surrounding drainage, erythema Neuro - Awake and alert, CN II - XII grossly intact, soft/slow speech Extremities - no edema, pulses intact Current Medications: Current Medications Sig/Danitza Start time Last Medication Dose Route Stop Time Status Admin Acetaminophen 650 MG Q6P PRN 08/15 1999 AC PO Ascorbic Acid 250 MG DAILY 08/16 1000 AC 08/18 PO 0822 Atorvastatin Calcium 5 MG 1700 08/16 1700 AC PO Carvedilol 12.5 MG BID 08/16 1000 AC 08/18 PO 0833 Cyanocobalamin 250 MCG DAILY 08/16 1000 AC 08/18 PO 0822 Enoxaparin Sodium 40 MG DAILY 08/16 1000 AC 08/18 SC 0823 Fish Oil 1,050 MG DAILY 08/16 1000 AC 08/17 PO 0944 Folic Acid 1 MG DAILY 08/16 1000 AC 08/18 PO 0833 Loperamide HCl 2 MG Q3H PRN 08/15 1945 AC PO Nystatin 1 CATRACHO BID 08/16 1000 AC 08/18 TOP 0823 Patient Medication 1 ED .STK-MED ONE 08/17 1415 DC Teaching ED 08/17 1416 Potassium Chloride 20 MEQ BID 08/15 2200 AC 08/18 PO 0822 Spironolactone 12.5 MG DAILY 08/16 1000 AC 08/18 PO 0833 Assessment/Plan Assessment: Patient was to be discharged back to home yesterday, however due to a policy at the [facility] facility where a home health manager needs to be present they rejected the patient 's discharge. His mother, whom is also admitted to [facility], is reportedly set to be discharged as well today. Given that both patients are to be discharged today there should be noted difficulty doing so. Vickers catheter is still draining a clear yellow liquid with good output. Patient is still set to follow-up with Dr. Fish and Dr. Membreno after discharge. Urinary Tract Infection / Suprapubic Catheter: History of Multiple Sclerosis requiring vickers catheter and recently changed to suprapubic catheter for recurrent UTIs most likely secondary to chronic neurogenic bladder. Patient of Dr. Fish. He was given Bactrim and Ampicillin in the ED. -UCx growing E. Faecalis and P. stuartii -Nystatin -Urology consult -ID consult -F/U Blood/Urine cultures Hypotension: Patient was reportedly hypotensive at his independent living facility. BP range in ED 119-124/70-73. -Monitor Vitals, bolus as needed -Hold blood pressure medications, resume as tolerated Multiple Sclerosis: Reportedly diagnosed after the of his son in 1988. Subsequently developing paraplegia and neurogenic bladder. -Baclofen 10mg PO Q6H History of Systolic Congestive Heart Failure: No bilateral lower extremity swelling, JVD, or crackles on examination. Patient of Dr. Membreno. -Spironolactone 12.5mg PO Daily -KCl 20mEq PO BID Hypertension - hold Coreg/Carvedilol as above, monitor for high/low blood pressure Hyperlipidemia - continue Atorvastatin 5mg Pain Plain: -Acetaminophen 650mg PO Q6H PRN PAIN 1-3, FEVER Diet - NPO for suprapubic catheter replacement DVT PPx - Lovenox Code Status - FULL CODE Problem List: 1. Obstructed suprapubic catheter Pain Ratin Pain Location: None Pain Goal: Remain pain free Pain Plan: As noted in plan Tomorrow's Labs & Rationales: None Consulting Request: Consulting Specialty: Urology STU OROZCO MD 08/18/16 6715: Attending MD Review Statement Attending Statement Attending MD Statement: examined this patient, discuss w/resident/PA/[employer], agreed w/resident/PA/[employer], reviewed EMR data (avail) Attending Assessment/Plan: Agree with assessment and plan. Will continue to monitor off antibiotics, good urine output from replaced suprapubic catheter, scheduled to be discharged tomorrow.
[2016-08-18 08:01] VITALS: BP 112/60
[2016-08-18 16:21] VITALS: BP 100/62
[2016-08-19 00:32] VITALS: BP 100/60
--- NOTE | 2016-08-19 07:14 | PN- Housestaff ---
EVI HURST MD 08/19/16 0713: Subjective Follow-up For: Urinary pain/discomfort Subjective: Patient seen and examined. He is seen lying flat in bed resting comfortably. He appears to be in no acute distress. He reports feeling fine and safe to go home today. He does admit to some persistent urinary / suprapubic discomfort after replacement of the suprapubic catheter but isn't concerned about it. Additionally he denies any headache, fever, chills, chest pain, shortness of breath, nausea, vomiting, diarrhea. No overnight events reported. Review of Systems Constitutional: Reports: see HPI. Objective Last 24 Hrs of Vital Signs/I&O Vital Signs Date Time Temp Pulse Resp B/P Pulse O2 O2 Flow FiO2 Ox Delivery Rate 08/19 0719 97.4 75 18 100/60 96 Room Air 08/19 0032 97.3 93 20 100/60 98 Room Air 08/18 2153 83 110/65 08/18 1621 97.7 83 20 100/62 97 Intake & Output 08/19 1600 08/19 0800 08/19 0000 Intake Total 200 60 Output Total 250 700 Balance -50 -640 Intake, Oral 200 60 Number 3 Bowel Movements Output, Urine 250 700 Physical Exam General Appearance: Alert, Oriented X3, Cooperative, No Acute Distress Other Physical Findings: General -well-developed, frail middle-aged male in no acute distress HEENT - NCAT, PERRL, EOMI, anicteric sclera Cardio - S1, S2 w/o murmurs/gallops/rubs Resp - CTA bilaterally w/o wheezing/rhochi/crackles GI - soft, nontender, nondistended, bowel sounds present -suprapubic catheter in place without any surrounding drainage, erythema Neuro - Awake and alert, CN II - XII grossly intact, soft/slow speech, paraplegia Extremities - no edema, pulses intact Current Medications: Current Medications Sig/Danitza Start time Last Medication Dose Route Stop Time Status Admin Acetaminophen 650 MG Q6P PRN 08/15 1999 AC PO Ascorbic Acid 250 MG DAILY 08/16 1000 AC 08/18 PO 08 Atorvastatin Calcium 5 MG 1700 08/16 1700 AC 08/18 PO 1700 Carvedilol 12.5 MG BID 08/16 1000 AC 08/18 PO 215 Cyanocobalamin 250 MCG DAILY 08/16 1000 AC 08/18 PO 0822 Enoxaparin Sodium 40 MG DAILY 08/16 1000 AC 08/18 SC 0823 Fish Oil 1,050 MG DAILY 08/16 1000 AC 08/17 PO 0944 Folic Acid 1 MG DAILY 08/16 1000 AC 08/18 PO 0833 Loperamide HCl 2 MG Q3H PRN 08/15 1945 AC PO Nystatin 1 CATRACHO BID 08/16 1000 AC 08/18 TOP 2155 Potassium Chloride 20 MEQ BID 08/15 2200 AC 08/18 PO 2155 Spironolactone 12.5 MG DAILY 08/16 1000 AC 08/18 PO 0833 Assessment/Plan Assessment: Patient reports feeling well and is ready to be discharged back to his ECF facility. Vickers cather replaced the other day appears well and has good urine output. Patient is to be discharged to home today with instruction to follow up with Dr. Fish and Dr. Ge for further care. Urinary Tract Infection / Suprapubic Catheter: History of Multiple Sclerosis requiring vickers catheter and recently changed to suprapubic catheter for recurrent UTIs most likely secondary to chronic neurogenic bladder. Patient of Dr. Fish. He was given Bactrim and Ampicillin in the ED. -UCx growing E. Faecalis and P. stuartii -Nystatin -Urology consult -ID consult -F/U Blood/Urine cultures Hypotension: Patient was reportedly hypotensive at his independent living facility. BP range in ED 119-124/70-73. -Monitor Vitals, bolus as needed -Hold blood pressure medications, resume as tolerated Multiple Sclerosis: Reportedly diagnosed after the of his son in 1988. Subsequently developing paraplegia and neurogenic bladder. -Baclofen 10mg PO Q6H History of Systolic Congestive Heart Failure: No bilateral lower extremity swelling, JVD, or crackles on examination. Patient of Dr. Membreno. -Spironolactone 12.5mg PO Daily -KCl 20mEq PO BID Hypertension - hold Coreg/Carvedilol as above, monitor for high/low blood pressure Hyperlipidemia - continue Atorvastatin 5mg Pain Plain: -Acetaminophen 650mg PO Q6H PRN PAIN 1-3, FEVER Diet - NPO for suprapubic catheter replacement DVT PPx - Lovenox Code Status - FULL CODE Problem List: 1. UTI (lower urinary tract infection) Pain Ratin Pain Location: None Pain Goal: Remain pain free Pain Plan: As noted in plan Tomorrow's Labs & Rationales: None Consulting Request: Consulting Specialty: Urology STU OROZCO MD 08/19/16 1711: Attending MD Review Statement Attending Statement Attending MD Statement: examined this patient, discuss w/resident/PA/[employer], agreed w/resident/PA/[employer], reviewed EMR data (avail) Attending Assessment/Plan: Agree with assessment and plan. Will continue to monitor off antibiotics, good urine output from replaced suprapubic catheter, stable for discharge today.
[2016-08-19 07:19] VITALS: BP 100/60
[2016-08-19 09:56] VITALS: BP 100/60
== END 2016-08-19 15:30 | disposition home health service (06) | DRG 699 ==
LOC: ENRESERVDT → ENRESERVTM → ERH 15:12 → 2NB 18:38 → ERHI 18:38 → DELPENDDIS 18:38 → ENPENDDIS 18:38 → 2NB 21:34
PROVIDERS: Internal Medicine; Internal Medicine Interventional Cardiology; Physician Assistant; ADMIT Internal Medicine
PROC: 0T9B40Z Drainage of Bladder with Drainage Device, Percutaneous Endoscopic Approach (ICD-10-PCS; principal; 2016-08-16)
PROC: 0TPB80Z Removal of Drainage Device from Bladder, Via Natural or Artificial Opening Endoscopic (ICD-10-PCS; 2016-08-16)
DX: T83.511A Infection and inflammatory reaction due to indwelling urethral catheter, initial encounter (principal); G82.20 Paraplegia, unspecified; I50.22 Chronic systolic (congestive) heart failure; I42.9 Cardiomyopathy, unspecified; G35 Multiple sclerosis
CPT/HCPCS: 2NBP; 82436; 87040; 87086; 93005; 93010; 96374; J0290; J0696; J1650; J3490

== ENCOUNTER 2016-12-05 17:38 | Emergency (ER) | payer OTHER ==
[~2016-12-05 17:38] MED LIST changes: +ADVIL LIQUI-GE200 M1 PO; +ALIGN4 M1 PO; +AVONEX ADMIN P30 MCG IM; +BACLOFEN10 M1 PO; +COREG PO; +KLOR-CON M2020 ME1 PO; +LOPERAMIDE2 M2 PO; +MEGA RED PO
--- NOTE | 2016-12-05 17:44 | ED GI/GU/ABDOMINAL COMPLAINT ---
History of Present Illness General Chief Complaint: Male Genitourinary Problems Stated Complaint: INABILITY TO VOID Source: patient, old records Exam Limitations: no limitations Vital Signs & Intake/Output Vital Signs & Intake/Output Vital Signs Date Time Temp Pulse Resp B/P B/P Pulse O2 O2 Flow FiO2 Mean Ox Delivery Rate 12/05 1906 99.7 98 18 102/64 95 Room Air 12/05 1749 Room Air 12/05 1748 99.0 86 18 109/73 97 Room Air Allergies Coded Allergies: NO KNOWN ALLERGIES (12/28/15) Reconcile Medications Ascorbic Acid/Bioflavonoid/C (Maryann C 500 MG-200 MG-50 MG) 1 TAB TAB 1 CAP PO DAILY HEALTH PROMOTION (Reported) Baclofen 10 MG TABLET 1 TAB PO 4 TIMES/DAY MUSCLE SPASMS (Reported) Bifidobacterium Infantis (Align) 4 MG (1 BILLION CELL) CAPSULE 1 TAB PO DAILY supplement (Reported) Carvedilol Phosphate (Coreg Cr) 80 MG CPMP.24HR 1 CAP PO DAILY heart ( Reported) Cholecalciferol (Vitamin D3) 1,000 IU TAB 2 TAB PO DAILY SUPPLEMENT (Reported ) Cyanocobalamin (Vitamin B12) 500 MCG TAB 1 TAB PO DAILY HEALTH PROMOTION ( Reported) Folic Acid 1 MG TABLET 1 TAB PO DAILY SUPPLEMENT (Reported) Ibuprofen (Advil Liqui-Gels) 200 MG CAPSULE 2 CAP PO Q4H PRN PAIN (Reported) Interferon Beta-1a/Albumin (Avonex Admin Pack 30 Mcg Vl) 30 MCG (1 ML) KIT 1 ML IM QWED MS (Reported) Loperamide HCl (Loperamide) 2 MG CAPSULE 1 CAP PO Q3H PRN DIARHHEA (Reported) [leon red 3] (Unknown Strength) (Unknown Dose) PO DAILY supplemt (Reported) [place]-3 Fatty Acids/Fish Oil (Fish Oil 1,000 MG Softgel) 1 EACH CAPSULE 1 CAP PO DAILY SUPPLEMENT (Reported) Pantoprazole Sodium 40 MG TABLET.DR 1 TAB PO DAILY AC GI (Reported) Potassium Chloride (Klor-Con M20) 20 MEQ TAB.ER.PRT 1 TAB PO BID SUPPLEMENT ( Reported) Prednisone 20 MG TABLET 1 TAB PO DAILY PRN ms exacerbation (Reported) Pyridostigmine [place] (Mestinon) 60 MG TABLET 1 TAB PO TID intestinal obstruction Please talk to your PCP immediately about resuming the medication. Saccharomyces Boulardii (Florastor) 250 MG CAPSULE 1 CAP PO BID PROBIOTIC ( Reported) Simvastatin (Simvastatin*) 10 MG TABLET 1 TAB PO QPM CHOLESTEROL (Reported) Spironolactone (Aldactone 25 MG Tablet) 25 MG TABLET 1 TAB PO DAILY DIURETIC (Reported) Zinc Gluconate (ZINC) 50 MG TABLET 1 TAB PO DAILY SUPPLEMENT (Reported) Triage Nurses Notes Reviewed? yes Onset: Abrupt Duration: day(s): (1), better, constant, resolved prior to arrival Timing: single episode today Quality/Severity: cramping Severity Numbers: 2 Location: suprapubic Radiation: no radiation Activities at Onset: none Prior Abdominal Problems: similar symptoms No Modifying Factors: none Associated Symptoms: denies HPI: 56-year-old male with history of MS, chronic indwelling suprapubic Huber catheter on Macrobid presents to ER for evaluation. According to the patient he had no urine output earlier this morning so the suprapubic tube was changed. They state that the continued to have no urine output so EMS was called to bring the patient to the ER. Upon the patient being brought to the ER and change from the stretcher to the hospital bed there was noted drainage from the urine tube. The patient denies any pain no fever no chills no abdominal pain nausea vomiting. His urologist is Dr. Fish the patient is otherwise without any complaints at this time. (VJ LEYVA) Past History Medical History Any Pertinent Medical History? see below for history Neurological: multiple sclerosis EENT: NONE Cardiovascular: cardiomyopathy, hypertension, CONGESTIVE HEART FAILURE HPL CARDIOMYOPATHY Respiratory: NONE Gastrointestinal: PSEUDO OBSTRUCTION ILEUS Hepatic: NONE Renal: SUPRAPUBIC TUBE-FREQUENT OBSTRUCTION. 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 No (VJ LEYVA) Review of Systems Review of Systems Constitutional: Reports: see HPI. All Other Systems: Reviewed and Negative Comments Review of systems: See HPI, All other systems negative. Constitutional, no chills no fever, no malaise HEENT: no sore throat no congestion Cardiovascular: No chest pain , no palpitation Skin: no rashes, no change in skin Respiratory: No dyspnea no cough no sputum GI: No nausea no vomiting, no diarrhea, : No dysuria Muscle skeletal: No joint pain, no joint swelling, no back pain, no neck pain, Neurologic: no headache Psych: No stress Heme/endocrine: No bruising Immunology: No lymphadenopathy (VJ LEYVA) Physical Exam Physical Exam General Appearance: alert, cachetic Gastrointestinal: soft, non-tender Comments: Well-developed well-nourished patient in no apparent distress. HEENT: Atraumatic, extraocular motion intact Neck: Supple, FROM Back: FROM Cardiovascular: Regular rate and rhythms no murmurs rubs or gallops, Respiratory: Chest nontender.There were no bony deformities, no asymmetry. No respiratory distress. Patient speaking in full complete sentences. Breath sounds clear to auscultation bilaterally: NO W/R/R abd: soft, notnender, no rebound or guarding, suprapubic cath in place, no surrounding erythema, yellow urine draining to bag Extremities: full range of motion Neuro: awake, alert, and oriented to person, place and time. There were no obvious focal neurologic abnormalities. Skin: Warm & dry;No appreciable rash on exposed skin Psych: Mood affect normal, normal memory normal judgment. Core Measures ACS in differential dx? No Severe Sepsis Present: No Septic Shock Present: No (VJ LEYVA) Progress Differential Diagnosis: pyelonephritis, ureterolithiasis, urinary retention, UTI /pyelo Plan of Care: Orders Procedure Date/time Status CULTURE,URINE 12/05 1750 Active URINALYSIS 12/05 1750 Complete Laboratory Tests 12/05/161754: Urine Color YEL, Urine Clarity CLEAR, Urine pH 6.0, Ur Specific [place] 1.020, Urine Protein TRACE H, Urine Ketones NEG, Urine Nitrite POS H, Urine Bilirubin NEG, Urine Urobilinogen 2.0 H, Ur Leukocyte Esterase LARGE H, Ur Microscopic SEDIMENT EXAMINED, Urine RBC 15-25 H, Urine WBC 25-50 H, Ur Epithelial Cells FEW, Urine Bacteria MANY H, Urine Hemoglobin LARGE H, Urine Glucose NEG Microbiology 05/15 1755 URINE ROUT: Urine Culture - RECD UA sent I discussed with the patient at length all of their results. I had an extensive conversation regarding need for close follow up with their primary care physician this week as well as return precautions. I answered all of their questions, they feel comfortable with the plan and follow-up care. (VJ LEYVA) Initial ED EKG: none (VJ LEYVA) Departure Departure Disposition: HOME OR SELF CARE Condition: Stable Clinical Impression Primary Impression: Suprapubic catheter dysfunction Referrals: LOLIS ZAMORA,MANDY SHOOK MD,LAWANDA Ash (PCP/Family) Additional Instructions: follow up with dr fish, return with any concerns Departure Forms: Customer Survey General Discharge Information (VJ LEYVA) PA/VISUAL EDUCATOR Co-Sign Statement Statement: ED Attending supervision documentation- [] I saw and evaluated the patient. I have also reviewed all the pertinent lab results and diagnostic results. I agree with the findings and the plan of care as documented in the PA's/VISUAL EDUCATOR's documentation. [x] I have reviewed the ED Record and agree with the PA's/VISUAL EDUCATOR's documentation. [] Additions or exceptions (if any) to the PAs/VISUAL EDUCATOR's note and plan are summarized below: [] (LACEY ZAMORA,TOBIAS [place])
[2016-12-05 19:07] VITALS: BP 102/64
== END 2016-12-05 19:25 ==
LOC: ERH 17:38
DX: T83.090A Other mechanical complication of cystostomy catheter, initial encounter (principal)
CPT/HCPCS: 81001; 87086

== ENCOUNTER → 2017-08-03 | Day surgery (SDC) | payer OTHER ==
[~2017-08-03] VITALS: Ht 180.3 cm; Wt 77.1 kg
[~2017-08-03] MED LIST changes: +A AND D OINTM42.5 GM TOP; -ALDACTONE 25 MG25 MG PO; +ALDACTONE25 MG PO; +COD LIVER OIL1 EAC3 PO; -COREG PO; +COREG12.5 M1 PO; +ESTER-C 500 MG1 EACH PO; +KEFLEX500 M1 PO; -MEGA RED PO; +MEGARED OMEGA-1 EAC2 PO; -NATURAL ZINC50 MG PO; +NITROFURANTOIN100 M5 PO; +NYSTATIN15 G1 TOP; +PANTOPRAZOLE SO40 M1 PO; -PANTOPRAZOLE SO40 MG PO; +VITAMIN B-12500 MC2 PO; -VITAMIN B12500 MCG PO; -VITAMIN D31000 IU PO; +VITAMIN D32000 UNI1 PO; +ZINC50 M2 PO
--- NOTE | 2017-08-03 16:06 | Operative Report ---
Operative/Inv Procedure Report Surgery Date: 08/03/17 Name of Procedure: cystoscopy: STP change Pre-Operative Diagnosis: neurogenic bladder-atonic Post-Operative Diagnosis: same Estimated Blood Loss: scant Surgeon/Lost And Found Clerk: Roque Fish MD Anesthesia: moderate sedation Drains: 22 fr. vickers as SPT Complications: none Operative/Procedure Note Note: The patient was taken to the operative room and placed on the OR table in supine position. Timeout was performed in order to confirm the patient's identity, procedure, anesthesia, antibiotics, as well as any other pertinent information. After adequate anesthesia, and antibiotics, the patient was then placed lithotomy stirrups draped and prepped in the usual surgical fashion. A 22 Japanese cystoscope sheath with a 30 angle lens was inserted into the urethra and advanced into the bladder without difficulty. The bladder was noted to have the findings as discussed above. The bladder was then hydrodistended 2 with the irrigation fluid at 40 cm above the symphysis pubis. No evidence of tumor, increased petechiae, nor Hunner's ulceration was noted. Both ureteral orifices had clear reflux in their orthotopic position. No terminal bleed with drainage. Bladder capacity was normal. the old spt vickers was removed, the site was then cleaned with betadine. A new 20fr/10cc vickers was inserted easily into the SPT site, the vickers balloon was inflated with 10cc sterile water, and was seen in the bladder via cystocope. The cystoscope was removed, and the bladder was then drained by the new SPT. The patient tolerated procedure well and was taken to recovery room in satisfactory condition. Discharge Disposition: Same Day Admissions CC: Roque Fish MD
== END ==
LOC: STS 03:20
DX: N31.2 Flaccid neuropathic bladder, not elsewhere classified (principal); R33.8 Other retention of urine; G35 Multiple sclerosis; K21.9 Gastro-esophageal reflux disease without esophagitis
CPT/HCPCS: J2250

== ENCOUNTER 2017-12-04 13:32 | Inpatient (IN) | payer OTHER ==
[~2017-12-04] VITALS: Ht 180.3 cm; Wt 79.9 kg
--- NOTE | 2017-12-04 13:47 | ED GI/GU/ABDOMINAL COMPLAINT ---
History of Present Illness General Chief Complaint: Abdominal Pain/Flank Pain Stated Complaint: ABD PRESSURE AND DISTENTION Source: patient, family, old records, EMS Exam Limitations: no limitations Vital Signs & Intake/Output Vital Signs & Intake/Output Vital Signs Date Time Temp Pulse Resp B/P B/P Pulse O2 O2 Flow FiO2 Mean Ox Delivery Rate 12/04 1705 97.3 85 19 109/81 96 Room Air 12/04 1349 98.0 79 20 133/90 96 Room Air Allergies Coded Allergies: No Known Allergies (12/04/17) Reconcile Medications Ascorbate Calcium/Bioflavonoid (Maryann-C 500 MG Tablet) 500 MG-200 MG TABLET 1 TAB PO DAILY SUPPLEMENT (Reported) Baclofen 10 MG TABLET 1 TAB PO AD MUSCLE SPASMS (Reported) Bifidobacterium Infantis (Align) 4 MG (1 BILLION CELL) CAPSULE 1 CAP PO DAILY GI (Reported) Carvedilol (Coreg) 12.5 MG TABLET 1 TAB PO BID HEART (Reported) Cholecalciferol (Vitamin D3) (Vitamin D3) 2,000 UNIT TABLET 1 TAB PO DAILY VITAMIN SUPPORT (Reported) Cod Liver Oil 1 EACH CAPSULE 1 CAP PO DAILY SUPPLEMENT (Reported) Cyanocobalamin (Vitamin B-12) (Vitamin B-12) 500 MCG TABLET 1 TAB PO DAILY VITAMIN SUPPORT (Reported) Ibuprofen (Advil Liqui-Gels) 200 MG CAPSULE 2 CAP PO Q4H PRN PAIN (Reported) Interferon Beta-1a/Albumin (Avonex Admin Pack 30 Mcg Vl) 30 MCG (1 ML) KIT 1 ML IM QWED MS (Reported) Krill/Om-3/Dha/Epa/Phospho/Ast (Meg[facility] [place] [facility]-3 Krill Oil Sfgl) 300-90-24 CAPSULE 1 CAP PO DAILY SUPPLEMENT (Reported) Nitrofurantoin Macrocrystal (Nitrofurantoin) 100 MG CAPSULE 1 CAP PO Q12H (Reported) Nystatin 100,000 UNIT/GRAM CREAM..G. 1 CATRACHO TOP AD PRN SKIN (Reported) apply to affected area(s) Pantoprazole Sodium 40 MG TABLET.DR 1 TAB PO DAILY ACID REFLUX (Reported) Potassium Chloride (Klor-Con M20) 20 MEQ TAB.ER.PRT 1 TAB PO BID SUPPLEMENT ( Reported) Prednisone 20 MG TABLET 1 TAB PO AD PRN ms exacerbation (Reported) Spironolactone (Aldactone) 25 MG TABLET 1 TAB PO DAILY WATER RETENTION ( Reported) Vits A and D/White Pet/Lanolin (A and D Ointment) 42.5 GM OINT...G. 1 CATRACHO TOP AD PRN SKIN (Reported) ZINC 50 MG TABLET 1 TAB PO DAILY SUPPLEMENT (Reported) Triage Nurses Notes Reviewed? yes HPI: Patient brought in with increasing abdominal distention and right upper quadrant pain radiating to his right shoulder. The pain is described as a sharp stabbing pain consistent with a gas pocket. There are no aggravating or mitigating factors. At its worst the pain was 8 out of 10 and is currently off or out of 10. He denies any nausea or vomiting. Patient states that he has been belching multiple times throughout the weekend. He denies any dysuria. Past History Medical History Any Pertinent Medical History? see below for history Neurological: multiple sclerosis EENT: NONE Cardiovascular: cardiomyopathy, hypertension, CONGESTIVE HEART FAILURE HPL CARDIOMYOPATHY Respiratory: NONE Gastrointestinal: PSEUDO OBSTRUCTION ILEUS Hepatic: NONE Renal: SUPRAPUBIC TUBE-FREQUENT OBSTRUCTION. 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 No Review of Systems Review of Systems Constitutional: Reports: no symptoms. EENTM: Reports: no symptoms. Respiratory: Reports: no symptoms. Cardiovascular: Reports: no symptoms. GI: Reports: see HPI, abdominal pain, distention. Genitourinary: Reports: no symptoms. Musculoskeletal: Reports: no symptoms. Skin: Reports: no symptoms. Neurological/Psychological: Reports: no symptoms. Hematologic/Endocrine: Reports: no symptoms. Immunologic/Allergic: Reports: no symptoms. All Other Systems: Reviewed and Negative Physical Exam Physical Exam General Appearance: well developed/nourished, alert, awake Head: atraumatic Eyes: Bilateral: PERRL, EOMI, other (ANICTERIC). Ears, Nose, Throat, Mouth: hearing grossly normal, moist mucous membrane Neck: normal inspection, supple, full range of motion Respiratory: normal breath sounds, chest non-tender, no respiratory distress, lungs clear Cardiovascular: regular rate/rhythm, normal peripheral pulses Gastrointestinal: soft, no organomegaly, abnormal bowel sounds (HYPOACTIVE), distention Back: normal inspection, normal range of motion Neurologic/Psych: awake, alert, oriented x 3 Core Measures ACS in differential dx? No Sepsis Present: No Sepsis Focused Exam Completed? No ED Sepsis Exam Date of Focused Sepsis Exam: 12/04/17 Time of Focused Sepsis Exam: 1700 Sepsis Cardiac Exam: Regular Rate/Rhythm Sepsis Resp Exam: CTA Sepsis Cap Refill Exam: <2 Sec Sepsis Peripheral Pulse Exam: Normal Sepsis Peripheral Pulse Location: Radial Sepsis Skin Color Exam: Normal for Ethnicity Skin Temp/Moisture Exam: Warm/Dry Progress Differential Diagnosis: bowel obstruction, cholecystitis, hepatitis, ischemic bowel, inflamm bowel dis, pancreatitis Plan of Care: Orders Procedure Date/time Status Heart Healthy Diet 12/05 B Active ED Holding Orders 12/04 1733 Active Admit to inpatient 12/04 1733 Active Vital Signs 12/04 1733 Active Code Status 12/04 1733 Active Add-on Test (ER Only) 12/04 1505 Active CULTURE,URINE 12/04 1409 Active Add-on Test (ER Only) 12/04 1401 Active EKG 12/04 1401 Active URINALYSIS 12/04 1346 Complete TROPONIN LEVEL 12/04 1346 Complete LIPASE 12/04 1346 Complete COMPREHENSIVE METABOLIC PANEL 12/04 1346 Complete CBC WITHOUT DIFFERENTIAL 12/04 1346 Complete AMYLASE 12/04 1346 Complete Current Medications Sig/Danitza Start time Last Medication Dose Stop Time Status Admin Ampicillin Sodium/ 3,000 MG ONCE ONE 12/04 1730 AC Sulbactam Sodium 12/04 1759 (Unasyn) Sodium Chloride 100 ML (Normal Saline 0.9%) Laboratory Tests 12/04/17 1418: Anion Gap 10, Estimated GFR > 60, BUN/Creatinine Ratio 80.0 H, Glucose 126 H, Calcium 8.5, Total Bilirubin 2.2 H, AST 18, ALT 87 H, Alkaline Phosphatase 60, Troponin I < 0.01, Total Protein 6.1 L, Albumin 3.1 L, Globulin 3.0, Albumin/ Globulin Ratio 1.0 L, Amylase 58, Lipase 315 H, CBC w Diff MAN DIFF ORDERED, RBC 5.81, MCV 82.4, MCH 27.5, MCHC 33.4, RDW 15.4 H, MPV 8.4, Gran % 89.1 H, Lymphocytes % 3.8 L, Monocytes % 4.4, Eosinophils % 0, Basophils % 2.7 H, Absolute Granulocytes 18.2 H, Segmented Neutrophils 87 H, Band Neutrophils 2, Absolute Lymphocytes 0.8 L, Lymphocytes 8 L, Monocytes 3, Absolute Monocytes 0.9 H, Absolute Eosinophils 0, Absolute Basophils 0.5, Platelet Estimate ADEQUATE, Normocytic RBCs VERIFIED, Normochromic RBCs VERIFIED 12/04/17 1409: Urine Color YEL, Urine Clarity HAZY H, Urine pH 6.5, Ur Specific [place] 1.015, Urine Protein NEG, Urine Ketones NEG, Urine Nitrite POS H, Urine Bilirubin NEG, Urine Urobilinogen 1.0, Ur Leukocyte Esterase LARGE H, Ur Microscopic SEDIMENT EXAMINED, Urine WBC 50-75 H, Ur Epithelial Cells RARE, Urine Bacteria MANY H, Urine Hemoglobin TRACE-INTACT H, Urine Glucose NEG Microbiology 12/04 1409 URINE ROUT: Urine Culture - RECD Diagnostic Imaging: Viewed by Me: CT Scan. Discussed w/RAD: CT Scan. Radiology Impression: PATIENT: HUSAM GOTTLIEB PRESENT AGE: 57 PATIENT ACCOUNT NO: [id number] : 56 LOCATION: [facility] ORDERING PHYSICIAN: Ángel Fenton MD SERVICE DATE: 12/04/17 EXAM TYPE: CAT - CT ABD & PELVIS W IV CONTRAST EXAMINATION: CT ABDOMEN AND PELVIS WITH CONTRAST CLINICAL INFORMATION: Right upper quadrant pain. COMPARISON: 03/30/2016 TECHNIQUE: Multidetector volumetric imaging was performed of the abdomen and pelvis following IV administration of 95 mL of Optiray 320 intravenous contrast. Sagittal and coronal reformatted images were obtained on the technologist's workstation. DLP: 974 mGy-cm FINDINGS: LUNG BASES: There is bibasilar subsegmental atelectasis. Elevation of the right hemidiaphragm. The visualized cardiac structures are unremarkable. LIVER, GALLBLADDER, AND BILIARY TREE: The liver is normal in size, shape, and attenuation. No focal hepatic lesion or biliary ductal dilatation is present. The gallbladder appears contracted. The gallbladder is stone filled. No gallbladder wall thickening or pericholecystic fluid. PANCREAS: Unremarkable. SPLEEN: Unremarkable. ADRENAL GLANDS: Unremarkable. KIDNEYS AND URETERS: The kidneys are normal in size, shape, and attenuation. No hydronephrosis, hydroureter, or calculi seen. No perinephric stranding. Multiple hypoattenuating lesions again seen in both kidneys which are unchanged from prior. BLADDER: Decompressed with a suprapubic catheter in place. GASTROINTESTINAL TRACT: There is similar appearance to the previous study. Again noted is marked distention of the colon with gas. This is particularly evident involving the sigmoid colon. Mild to moderate amount of stool in the ascending and transverse colon. Small amount of stool at the rectum. No pneumatosis. The small bowel is normal in caliber, without obstruction. No free air or free fluid. Partially visualized normal appendix. ABDOMINAL WALL: No significant hernia. Diffuse abdominal wall laxity. Diffuse fatty atrophy of the gluteal musculature. LYMPH NODES: Normal. VASCULAR: Normal caliber aorta. Mild atherosclerotic calcification. PELVIC VISCERA: Unremarkable. OSSEOUS STRUCTURES: No acute or suspicious osseous abnormality. Mild degenerative changes throughout the spine. Moderate degenerative changes of both hips. IMPRESSION: 1. Similar appearance to prior with prominent gaseous distention of the colon, most prominently affecting the sigmoid colon. This is suggestive of chronic pseudoobstruction or ileus. There is mild to moderate stool burden within the right hemicolon. The small bowel is normal in caliber. 2. Cholelithiasis without additional findings to suggest acute cholecystitis. DICTATED BY: Demetrio Santiago MD DATE/TIME DICTATED:12/04/171535 GRAPPLE YARDER OPERATOR:NICK DATE/TIME TRANSCRIBED:12/04/171535 CONFIDENTIAL, DO NOT COPY WITHOUT APPROPRIATE AUTHORIZATION. <Electronically signed in Other Vendor System> SIGNED BY: aJck ZAMORA,Demetrio 12/04/17 3164 Initial ED EKG: NSR, LVH Departure Departure Disposition: STILL A PATIENT Condition: Stable Clinical Impression Primary Impression: Sepsis Secondary Impressions: UTI (urinary tract infection) Referrals: Dieudonne Levy MD (PCP/Family) Departure Forms: Customer Survey General Discharge Information Admission Note Spoke With: Daniel Johnson MD Documentation of Exam: Documentation of any treatments & extenuating circumstances including Concerns Regarding Discharge (functional status, medication knowledge or non-compliance, living conditions, etc.) that warrant an admission rather than observation: [IV antibiotics, IV fluids, ID consultation, urology consultation]
[2017-12-04 14:26] LABS: ABSOLUTE BASOPHIL COUNT 0.5 /CUMM (0.0-0.2); ABSOLUTE EOSINOPHIL COUNT 0 /CUMM (0.0-0.7); ABSOLUTE GRANULOCYTE CT 18.2 /CUMM (1.4-6.5); ABSOLUTE LYMPH COUNT 0.8 /CUMM (1.2-3.4); ABSOLUTE MONOCYTE COUNT 0.9 /CUMM (0.10-0.60); BASOPHIL % 2.7 % (0.0-2.0); EOSINOPHIL % 0 % (0-5); GRANULOCYTE % 89.1 % (42.2-75.2); HEMATOCRIT 47.9 % (42-52); MEAN CORPUSCULAR HGB 27.5 PG (27.0-31.0); MEAN CORPUSCULAR HGB CONC 33.4 G/DL (33.0-37.0); MEAN CORPUSCULAR VOLUME 82.4 FL (80.0-94.0); MEAN PLATELET VOLUME 8.4 FL (7.4-10.4); PLATELET COUNT 208 /CUMM (130-400); RBC DISTRIBUTION WIDTH 15.4 % (11.5-14.5); RED BLOOD CELL CT 5.81 /CUMM (4.70-6.10); WHITE BLOOD CELL COUNT 20.5 /CUMM (4.8-10.8)
--- NOTE | 2017-12-04 15:47 | CT SCAN REPORT ---
EXAMINATION: CT ABDOMEN AND PELVIS WITH CONTRAST CLINICAL INFORMATION: Right upper quadrant pain. COMPARISON: 03/30/2016 TECHNIQUE: Multidetector volumetric imaging was performed of the abdomen and pelvis following IV administration of 95 mL of Optiray 320 intravenous contrast. Sagittal and coronal reformatted images were obtained on the technologist's workstation. DLP: 974 mGy-cm FINDINGS: LUNG BASES: There is bibasilar subsegmental atelectasis. Elevation of the right hemidiaphragm. The visualized cardiac structures are unremarkable. LIVER, GALLBLADDER, AND BILIARY TREE: The liver is normal in size, shape, and attenuation. No focal hepatic lesion or biliary ductal dilatation is present. The gallbladder appears contracted. The gallbladder is stone filled. No gallbladder wall thickening or pericholecystic fluid. PANCREAS: Unremarkable. SPLEEN: Unremarkable. ADRENAL GLANDS: Unremarkable. KIDNEYS AND URETERS: The kidneys are normal in size, shape, and attenuation. No hydronephrosis, hydroureter, or calculi seen. No perinephric stranding. Multiple hypoattenuating lesions again seen in both kidneys which are unchanged from prior. BLADDER: Decompressed with a suprapubic catheter in place. GASTROINTESTINAL TRACT: There is similar appearance to the previous study. Again noted is marked distention of the colon with gas. This is particularly evident involving the sigmoid colon. Mild to moderate amount of stool in the ascending and transverse colon. Small amount of stool at the rectum. No pneumatosis. The small bowel is normal in caliber, without obstruction. No free air or free fluid. Partially visualized normal appendix. ABDOMINAL WALL: No significant hernia. Diffuse abdominal wall laxity. Diffuse fatty atrophy of the gluteal musculature. LYMPH NODES: Normal. VASCULAR: Normal caliber aorta. Mild atherosclerotic calcification. PELVIC VISCERA: Unremarkable. OSSEOUS STRUCTURES: No acute or suspicious osseous abnormality. Mild degenerative changes throughout the spine. Moderate degenerative changes of both hips. IMPRESSION: 1. Similar appearance to prior with prominent gaseous distention of the colon, most prominently affecting the sigmoid colon. This is suggestive of chronic pseudoobstruction or ileus. There is mild to moderate stool burden within the right hemicolon. The small bowel is normal in caliber. 2. Cholelithiasis without additional findings to suggest acute cholecystitis.
--- NOTE | 2017-12-04 17:39 | History & Physical ---
Nico Shrestha 12/04/17 2567: General Information and HPI History of Present Illness: Mr Simpson is a 55 yo m with a PMH of MS, quadriplegia, HFpEF, colonic pseudo- obstruction, neurogenic bladder s/p suprapubic catheter on prophylactic antibiotics who presents to the ED with abdominal pressure. Patient reports "I thought I was having a heart attack". A couple of days ago he had severe abdominal cramps and pressure that seem to be improving. Subsequently he felt a stomach pain gas-like in nature after eating a bagel that radiated to right chest and right arm. He reports a similar episode 5 years ago and he was diagnosed with a pseudo-obstruction. He also recalls a loose tooth that fell out while eating the bagel. His last suprapubic catheter change was 11/30/17. He has a visiting nurse at home that comes weekly. He lives with his [id number] who is a nurse. He reports he has been under a lot of stress and anxiety lately that may be contributing to his symptoms. He denies SOB, palpitations, fever, chills, myalgias, urinary symptoms In the ED patient was afebrile, normotensive, satting well on room air. Labs were significant for leukocytosis with 2% bandemia. He was given 1 dose of Unasyn Allergies/Medications Allergies: Coded Allergies: No Known Allergies (12/04/17) Past History Travel History Traveled to [place] past 21 day No Medical History Neurological: multiple sclerosis EENT: NONE Cardiovascular: cardiomyopathy, hypertension, CONGESTIVE HEART FAILURE HPL CARDIOMYOPATHY Respiratory: NONE Gastrointestinal: PSEUDO OBSTRUCTION ILEUS Hepatic: NONE Renal: SUPRAPUBIC TUBE-FREQUENT OBSTRUCTION. HYPOKALEMIA recurrent urinary tract infections Musculoskeletal: NONE Psychiatric: NONE Endocrine: NONE Blood Disorders: NONE Cancer(s): NONE AIRCRAFT CAPTAIN/Reproductive: N/A History of MRSA: No History of VRE: Yes History of CDIFF: No Surgical History Surgical History: SUPRAPUBIC CATHETER TONSILS Past Family/Social History Family History Relations & Conditions if any Relation not specified for: *No pertinent family history Psychosocial History Who Do You Live With? parent Services at Home: Home Health Aide, Nursing ETOH Use: denies use Illicit Drug Use: denies illicit drug use Functional Ability ADLs Needs Assist: dressing, eating, toileting, bathing. Ambulation: non-ambulatory IADLs Needs Assist: shopping, housework, finances, food prep, telephone, transportation, medication admin. Review of Systems Review of Systems Constitutional: Reports: see HPI. Exam & Diagnostic Data Last 24 Hrs of Vital Signs/I&O Vital Signs Date Time Temp Pulse Resp B/P B/P Pulse O2 O2 Flow FiO2 Mean Ox Delivery Rate 12/04 1705 97.3 85 19 109/81 96 Room Air 12/04 1349 98.0 79 20 133/90 96 Room Air Intake & Output 12/04 1600 12/04 0800 12/04 0000 Intake Total 1000 Output Total Balance 1000 Intake, IV 1000 Patient 183 lb Weight Weight Reported by Patient Measurement Method Physical Exam General Appearance Alert, Oriented X3, Cooperative, No Acute Distress, quadriplegic HEENT Atraumatic, PERRLA, EOMI, Mucous Membr. moist/pink Neck Supple, No JVD, No thryomegaly Cardiovascular Regular Rate, Normal S1, Normal S2 Lungs Clear to Auscultation, Normal Air Movement Abdomen mild skin erythema around suprapubic catheter insertion site Extremities contracted BUE and left toes Last 24 Hrs of Labs/Parker: Laboratory Tests 12/04/17 1418: Anion Gap 10, Estimated GFR > 60, BUN/Creatinine Ratio 80.0 H, Glucose 126 H, Lactic Acid 2.0, Calcium 8.5, Total Bilirubin 2.2 H, AST 18, ALT 87 H, Alkaline Phosphatase 60, Troponin I < 0.01, Total Protein 6.1 L, Albumin 3.1 L , Globulin 3.0, Albumin/Globulin Ratio 1.0 L, Amylase 58, Lipase 315 H, CBC w Diff MAN DIFF ORDERED, RBC 5.81, MCV 82.4, MCH 27.5, MCHC 33.4, RDW 15.4 H, MPV 8.4, Gran % 89.1 H, Lymphocytes % 3.8 L, Monocytes % 4.4, Eosinophils % 0, Basophils % 2.7 H, Absolute Granulocytes 18.2 H, Segmented Neutrophils 87 H, Band Neutrophils 2, Absolute Lymphocytes 0.8 L, Lymphocytes 8 L, Monocytes 3, Absolute Monocytes 0.9 H, Absolute Eosinophils 0, Absolute Basophils 0.5, Platelet Estimate ADEQUATE, Normocytic RBCs VERIFIED, Normochromic RBCs VERIFIED 12/04/17 1409: Urine Color YEL, Urine Clarity HAZY H, Urine pH 6.5, Ur Specific [place] 1.015, Urine Protein NEG, Urine Ketones NEG, Urine Nitrite POS H, Urine Bilirubin NEG, Urine Urobilinogen 1.0, Ur Leukocyte Esterase LARGE H, Ur Microscopic SEDIMENT EXAMINED, Urine WBC 50-75 H, Ur Epithelial Cells RARE, Urine Bacteria MANY H, Urine Hemoglobin TRACE-INTACT H, Urine Glucose NEG Microbiology 12/04 1908 BLOOD: Blood Culture - RECD 12/04 1837 BLOOD: Blood Culture - RECD 12/04 1409 URINE ROUT: Urine Culture - RECD Diagnostic Data Other Results 12/04/17-1446 CT ABD & PELVIS W IV CONTRAST IMPRESSION: 1. Similar appearance to prior with prominent gaseous distention of the colon, most prominently affecting the sigmoid colon. This is suggestive of chronic pseudoobstruction or ileus. There is mild to moderate stool burden within the right hemicolon. The small bowel is normal in caliber. 2. Cholelithiasis without additional findings to suggest acute cholecystitis. Assessment/Plan Assessment: Mr Simpson is a 55 yo m with a PMH of MS, quadriplegia, HFpEF, colonic pseudo- obstruction, neurogenic bladder s/p suprapubic catheter who presents to the ED with abdominal pressure. CT abd/pel showed asymptomatic Cholelithiasis without additional findings to suggest acute cholecystitis with prominent gaseous distention of the colon, most prominently affecting the sigmoid colon suggestive of chronic pseudoobstruction or ileus. Problem list: #Abdominal pain #History of MS #Leukocytosis - most likely 2/2 Prednisone use Plan: Admit to gen med for further evaluation and management Follow off antibiotics Resume home meds including Prednisone taper for MS, Baclofen, Spironolactone, Carvedilol, Inteferon ID consult PT/OT Diet: Regular DVT ppx: sc Enoxaparin Code: FULL As Ranked By This Provider Problem List: 1. ABDOMINAL DISTENSION 2. Pseudoobstruction of colon Core Measures/Misc (04/09) Acute Coronary Syndrome ACS Diagnosis: No Congestive Heart Failure Congestive Heart Failure Diagnosis No Cerebrovascular Accident CVA/TIA Diagnosis: No VTE (View Protocol) VTE Risk Factors Age>40 No Mechanical VTE Prophylaxis d/t N/A MechProphylax Ordered No VTE Pharm Prophylaxis d/t NA PharmProphylax ordered Sepsis (View protocol) Sepsis Present: No Sheba Li MD 12/04/17 1744: General Information and HPI Allergies/Medications Home Med list Ascorbate Calcium/Bioflavonoid (Maryann-C 500 MG Tablet) 500 MG-200 MG TABLET 1 TAB PO DAILY SUPPLEMENT (Reported) Bifidobacterium Infantis (Align) 4 MG (1 BILLION CELL) CAPSULE 1 CAP PO DAILY GI (Reported) Carvedilol (Coreg) 12.5 MG TABLET 1 TAB PO BID HEART (Reported) Cholecalciferol (Vitamin D3) (Vitamin D3) 2,000 UNIT TABLET 1 TAB PO DAILY VITAMIN SUPPORT (Reported) Cod Liver Oil 1 EACH CAPSULE 1 CAP PO DAILY SUPPLEMENT (Reported) Cyanocobalamin (Vitamin B-12) (Vitamin B-12) 500 MCG TABLET 1 TAB PO DAILY VITAMIN SUPPORT (Reported) Ibuprofen (Advil Liqui-Gels) 200 MG CAPSULE 2 CAP PO Q4H PRN PAIN (Reported) Interferon Beta-1a/Albumin (Avonex Admin Pack 30 Mcg Vl) 30 MCG (1 ML) KIT 1 ML IM QWED MS (Reported) Krill/Om-3/Dha/Epa/Phospho/Ast (Megared [place]-3 Krill Oil Sfgl) 300-90-24 CAPSULE 1 CAP PO DAILY SUPPLEMENT (Reported) Nitrofurantoin Macrocrystal (Nitrofurantoin) 100 MG CAPSULE 1 CAP PO Q12H (Reported) Nystatin 100,000 UNIT/GRAM CREAM..G. 1 CATRACHO TOP AD PRN SKIN (Reported) apply to affected area(s) Pantoprazole Sodium 40 MG TABLET.DR 1 TAB PO DAILY ACID REFLUX (Reported) Polyethylene Glycol 3350 (Miralax) 17 GRAM/DOSE POWDER 17 GM PO DAILY PRN CONSTIPATION Potassium Chloride (Klor-Con M20) 20 MEQ TAB.ER.PRT 1 TAB PO BID SUPPLEMENT ( Reported) Prednisone 20 MG TABLET 1 TAB PO BID PRN ms exacerbation (Reported) CONTINUE UNTIL 12/16/17 AND START ONCE DAILY STARTING 12/17. FOLLOW UP WITH NEUROLOGY THEREAFTER Sennosides/Docusate Sodium (Senna-Time S Tablet) 8.6 MG-50 MG TABLET 187 MG PO AT BEDTIME PRN CONSTIPATION Spironolactone (Aldactone) 25 MG TABLET 1 TAB PO DAILY WATER RETENTION ( Reported) Vits A and D/White Pet/Lanolin (A and D Ointment) 42.5 GM OINT...G. 1 CATRACHO TOP AD PRN SKIN (Reported) ZINC 50 MG TABLET 1 TAB PO DAILY SUPPLEMENT (Reported) Resident Review Statement Resident Statement: examined this patient, discussed with internet assessor, agreed with internet assessor, discussed with family Other Findings: Patient is a 56-year-old male with past medical history of hypertension, right- sided systolic heart failure, history of pseudoobstruction in the colon, Multiple sclerosis complicated by quadriplegia, neurogenic bladder requiring Huber catheter/suprapubic. He had recurrent infection and was having history of enterococcus, presented with chief complaints of abdominal pain and distention since last 3 days. According to him he was having abdominal distention and discomfort since last couple of days which was improved after he had passed flatus/gas. Yesterday afternoon when he ate a bagel afterwards he had abdomen distention followed by pain in the abdomen which radiated up in the chest and the right arm. He denies for any fever, nausea, vomiting, chest pain, palpitation. Vital signs at the time of presentation -temperature 98.0, pulse 79, respiratory 20, blood pressure 133/90, SPO2 96% on room air. On physical examination -he had generalized disuse atrophy of all 4 limbs. The catheter was located in suprapubic region with surrounding inflammation, and erythema. Urine was clear. Blood workup that showed -WBC 20.5, hemoglobin 16.0, hematocrit 47.9, RDW 15.4, platelet count 208, granulocyte 89%, lymphocytes 2.8%, basophils 2.7, serum sodium 134, potassium 4.3, BUN 24, creatinine 0.3, glucose 126, total bilirubin 2.2, ALT 87, total protein 6.1, albumin 3.1, serum lipase 315, urine analysis- urine nitrite positive, leukocyte esterase large, WBC 50-75, bacteria many. CT abdomen pelvis -showed chronic pseudoobstruction and ileus, mild to moderate stool burden. Cholelithiasis without additional findings suggestive of cholecystitis. Assessment and plan - Leukocytosis - Patient does not have any symptoms of infection, he denies for any fever, chills , nausea, vomiting. He said that he was on prednisone on tapering doses for multiple sclerosis. It is a possibility that this leukocytosis secondary to prednisone. * We will regularly monitor the WBC count. * Follow off antibiotic * We will placed ID consult for further evaluation and management. Asymptomatic UTI - He has history of neurogenic bladder, and on chronic suprapubic Huber catheter. His urinalysis is showing nitrite, leukocyte esterase, WBC. In the past he was growing multiple organism. On gross examination urine does not look cloudy and patient denies for any foul smell or new changes in the urine. His last catheter was changed in 11/30/2017 per the nurse. He always get replacement of the catheter every month/4 weeks. * We will watch off antibiotic * We will place ID consult for further evaluation and management. Multiple sclerosis - We will continue his prednisone taper -20 mg every 8 till Monday followed by 20 mg twice daily. * Physical therapy/OT Pseudoobstruction on CT scan - He was complaining of abdominal distention, followed by gaseous bowel movement and [address] scan did show evidence of mild to moderate stool collection in the bowel. Advised for bowel regimen. * We will watch for constipation, and we will do serial abdominal exams. CODE STATUS-full code DVT prophylaxis-TIERA/heparin Diet-heart healthy diet Daniel Johnson MD 12/04/17 2222: Attending MD Review Statement Attending Statement Attending MD Statement: examined this patient, discuss w/resident/PA/RESIDENCE MANAGER, agreed w/resident/PA/RESIDENCE MANAGER, reviewed EMR data (avail), reviewed images, amended to note Attending Assessment/Plan: The patient is a 3 yo male with h/o MS and quadriplegia, s/p prior suprapubic catheter placement (just changed by [facility] 11/30) who presented on the day of admission in the ED complaining of abdominal crams (more RUQ) for several days. Pain was radiating to right chest and shoulder. He had another episode like this 5 years ago and was told he had "pseudo-obstruction). He is on pulse Prednisone therapy for his MS (takes 28 day course - 10 mg 4 T daily x 6 days, 3T daily x 6 days- on second day now; 2 tabs daily x 6 days, & 1 T daily x 6 days etc.). He denied any fever or chills. No nausea/vomiting. + slight diarrhea. Physical Exam: VS: T 97.3, P 79, R 20, BP 133/90, PO 96% RA HEENT: eyes- PERRLA, EOMI stephany- moist mucosa, poor dentition (chipped tooth recently) Neck: no JVD/bruits Chest: clear Cor: RRR nl S1, S2 w/o murm Abd: BS+ (quiet, nl pitch), softly distended- + mild tenderness RUQ w/o guarding /rebound; SP tube in place, mild erythematous rash around tube (?fungal) Ext: Contracted Neuro: alert & oriented x 3 Labs/Tests- as above Impression/Plan: #Leukocytosis- the patient denies any fever, chills or other symptoms. Has chronic suprapubic catheter that was just changed 11/30. He does have some pyuria (50-75 WBC), however this may be colonization and not infection. Leukocytosis may be related to the pulse steroid treatment. Does have galltones on CT and distended abd, however no other signs of cholecystitis. Plan; Will mccartney culture. Unasyn x 1 dose given in ED- will await culture prior to more. ID consult regarding infection (last admit he was observed off Abx). Trend WBC. #Abdominal Pain- RUQ as noted in presence of galltones. No other signs of cholecystitis on CT. Has h/o ?pseudo-obstruction and bowel sounds are sl reduce. Plan: Will follow abdominal exam. Consider further GB workup if more symptomatic. #Multiple Sclerosis- quadraplegia noted. Plan: Pulse Prednisone as per Dr. Cai. Continue Baclofen. #GERD- on Pantoprazole. Plan: Substitute Omeprazole while in hospital.
[2017-12-04 20:29] VITALS: BP 118/76
[2017-12-04 22:01] VITALS: BP 120/76
--- NOTE | 2017-12-04 22:46 | Admission Certification ---
Admission Certification Certification Statement - As attending physician, I certify that at the time of - admission, based on clinical presentation, severity of - symptoms, need for further diagnostic testing and - therapeutic interventions, and risk of adverse outcomes - without in-hospital treatment, in my clinical assessment, - this patient requires an acute hospital stay for a minimum - of two nights or longer. I have also considered psychsocial - factors such as support system, advanced age, financial - issues, cognitive issues, and failed out-patient treatments, - past re-admission history, safety of patient, and lack of - compliance as applicable. Specific rationale supporting this admission is: The patient presents with abdominal pain and distension and has leukocytosis. He is on Prednisone therapy for MS and is immunocompromised. Needs admission for mccartney culture, IV Abx, ID consult Dr. Trejo. Close observation for fever.
[2017-12-05 05:56] VITALS: BP 110/64
--- NOTE | 2017-12-05 06:58 | PN- Housestaff ---
Subjective Follow-up For: #Abdominal pain #History of MS #Leukocytosis - most likely 2/2 Prednisone use Subjective: Patient reports peristent abdominal cramps. He denies SOB, CP, nausea, vomiting , urinary or bowel symptoms Review of Systems Constitutional: Reports: see HPI. Objective Last 24 Hrs of Vital Signs/I&O Vital Signs Date Time Temp Pulse Resp B/P B/P Pulse O2 O2 Flow FiO2 Mean Ox Delivery Rate 12/05 0914 85 110/64 12/05 0556 98.0 85 20 110/64 94 Room Air 12/04 2201 98.2 85 18 120/76 95 Room Air 12/04 2131 85 118/76 12/04 2029 98.2 85 18 118/76 95 Room Air 12/04 1920 97.6 85 20 121/72 94 Room Air 12/04 1705 97.3 85 19 109/81 96 Room Air 12/04 1700 Room Air Room Air 12/04 1349 98.0 79 20 133/90 96 Room Air Intake & Output 12/05 1600 12/05 0800 12/05 0000 Intake Total 500 1100 Output Total 275 650 Balance 225 450 Intake, IV 20 1100 Intake, Oral 480 Number 0 Bowel Movements Output, Urine 275 650 Patient 181 lb 181 lb Weight Weight Bed scale Measurement Method Physical Exam General Appearance: Alert, Oriented X3, Cooperative, No Acute Distress, quadriplegic Cardiovascular: Regular Rate, Normal S1, Normal S2 Lungs: Clear to Auscultation, Normal Air Movement Abdomen: mild diffuse tenderness Extremities: No Edema, No Tenderness/Swelling Current Medications: Current Medications Sig/Danitza Start time Last Medication Dose Route Stop Time Status Admin Ampicillin Sodium/ 0 .STK-MED ONE 12/04 1833 DC Sulbactam Sodium .ROUTE Ampicillin Sodium/ 3,000 MG ONCE ONE 12/04 1730 DC 12/04 Sulbactam Sodium IV 12/04 1759 1910 Sodium Chloride 100 ML Baclofen 10 MG 7:30 AM, & 4:30 PM 12/05 0730 AC 12/05 PO 0644 Bisacodyl 5 MG DAILY 12/05 0900 AC 12/05 PO 09 Carvedilol 12.5 MG BID 12/04 2100 AC 12/05 PO 0914 Ceftriaxone Sodium 1,000 MG DAILY 12/05 0900 CAN IV Enoxaparin Sodium 0 .STK-MED ONE 12/04 1834 DC SC Enoxaparin Sodium 40 MG DAILY 12/04 1742 12/05 SC 0914 Non-Formulary 0 SEE ADMIN CRITERIA 12/04 1915 CAN Medication ANY Omeprazole 40 MG DAILY AC 12/05 0700 AC 12/05 PO 0644 Patient Medication 1 ED ONE ONE 12/05 1000 DC Teaching ED 12/05 1001 Prednisone 20 MG Q8P PRN 12/05 0830 AC PO Prednisone 20 MG ONCE ONE 12/04 2230 DC 12/04 PO 12/04 2231 2346 Senna 187 MG ONCE ONE 12/05 0845 DC 12/05 PO 12/05 0846 0914 Senna 187 MG AT BEDTIME 12/04 2100 AC PO Sodium Chloride 1,000 ML BOLUS ONE 12/04 1830 DC 12/04 IV 12/04 192 1919 Sodium Chloride 1,000 ML BOLUS ONE 12/04 1830 DC 12/04 IV 12/04 192 1924 Sodium Chloride 1,000 ML BOLUS ONE 12/04 1400 DC 12/04 IV 12/04 1459 1440 Spironolactone 25 MG DAILY 12/05 0900 AC 12/05 PO 0914 Last 24 Hrs of Lab/Parker Results Last 24 Hrs of Labs/Mics: Laboratory Tests 12/05/17 0845: CBC w Diff NO MAN DIFF REQ, RBC 5.04, MCV 83.4, MCH 27.5, MCHC 33.0, RDW 15.4 H , MPV 8.9, Gran % 82.7 H, Lymphocytes % 10.2 L, Monocytes % 7.0, Eosinophils % 0.1, Basophils % 0, Absolute Granulocytes 11.7 H, Absolute Lymphocytes 1.4, Absolute Monocytes 1.0 H, Absolute Eosinophils 0, Absolute Basophils 0 12/04/17 1418: Anion Gap 10, Estimated GFR > 60, BUN/Creatinine Ratio 80.0 H, Glucose 126 H, Lactic Acid 2.0, Calcium 8.5, Total Bilirubin 2.2 H, AST 18, ALT 87 H, Alkaline Phosphatase 60, Troponin I < 0.01, Total Protein 6.1 L, Albumin 3.1 L , Globulin 3.0, Albumin/Globulin Ratio 1.0 L, Amylase 58, Lipase 315 H, CBC w Diff MAN DIFF ORDERED, RBC 5.81, MCV 82.4, MCH 27.5, MCHC 33.4, RDW 15.4 H, MPV 8.4, Gran % 89.1 H, Lymphocytes % 3.8 L, Monocytes % 4.4, Eosinophils % 0, Basophils % 2.7 H, Absolute Granulocytes 18.2 H, Segmented Neutrophils 87 H, Band Neutrophils 2, Absolute Lymphocytes 0.8 L, Lymphocytes 8 L, Monocytes 3, Absolute Monocytes 0.9 H, Absolute Eosinophils 0, Absolute Basophils 0.5, Platelet Estimate ADEQUATE, Normocytic RBCs VERIFIED, Normochromic RBCs VERIFIED 12/04/17 1409: Urine Color YEL, Urine Clarity HAZY H, Urine pH 6.5, Ur Specific [place] 1.015, Urine Protein NEG, Urine Ketones NEG, Urine Nitrite POS H, Urine Bilirubin NEG, Urine Urobilinogen 1.0, Ur Leukocyte Esterase LARGE H, Ur Microscopic SEDIMENT EXAMINED, Urine WBC 50-75 H, Ur Epithelial Cells RARE, Urine Bacteria MANY H, Urine Hemoglobin TRACE-INTACT H, Urine Glucose NEG Microbiology 12/04 1908 BLOOD: Blood Culture - RES 12/04 1837 BLOOD: Blood Culture - RES 12/04 1409 URINE ROUT: Urine Culture - RES GRAM NEGATIVE RODS Assessment/Plan Assessment: Mr Simpson is a 55 yo m with a PMH of MS, quadriplegia, HFpEF, colonic pseudo- obstruction, neurogenic bladder s/p suprapubic catheter who presents to the ED with abdominal pressure. CT abd/pel showed asymptomatic Cholelithiasis without additional findings to suggest acute cholecystitis with prominent gaseous distention of the colon, most prominently affecting the sigmoid colon suggestive of chronic pseudoobstruction or ileus. Problem list: #Abdominal pain #History of MS #Leukocytosis - most likely 2/2 Prednisone use Plan: Follow off antibiotics and monitor white count Continue Prednisone taper for MS, Baclofen, Spironolactone, Carvedilol Continue bowel regimen Appreciate ID recommendation Diet: Regular DVT ppx: sc Enoxaparin Code: FULL Problem List: 1. Pseudoobstruction of colon 2. ABDOMINAL DISTENSION Pain Ratin Pain Location: abd Pain Goal: Pain 4 or less Pain Plan: Baclofen Tomorrow's Labs & Rationales: CBC, BEP
[2017-12-05 10:56] LABS: ABSOLUTE BASOPHIL COUNT 0 /CUMM (0.0-0.2); ABSOLUTE EOSINOPHIL COUNT 0 /CUMM (0.0-0.7); ABSOLUTE GRANULOCYTE CT 11.7 /CUMM (1.4-6.5); ABSOLUTE LYMPH COUNT 1.4 /CUMM (1.2-3.4); BASOPHIL % 0 % (0.0-2.0); EOSINOPHIL % 0.1 % (0-5); GRANULOCYTE % 82.7 % (42.2-75.2); WHITE BLOOD CELL COUNT 14.1 /CUMM (4.8-10.8)
[2017-12-05 11:45] LABS: MEAN CORPUSCULAR HGB 27.5 PG (27.0-31.0); MEAN CORPUSCULAR VOLUME 83.4 FL (80.0-94.0); MEAN PLATELET VOLUME 8.9 FL (7.4-10.4); PLATELET COUNT 205 /CUMM (130-400); RBC DISTRIBUTION WIDTH 15.4 % (11.5-14.5); RED BLOOD CELL CT 5.04 /CUMM (4.70-6.10)
--- NOTE | 2017-12-05 13:22 | PN- Att Addend ---
Attending Addendum Attending Brief Note Patient seen and examined, c/o abd bloating. Says has had liquid stool but CT abd shows stool and possible psudoobstruction. UA positive, Urine Cx growing GNR. Vital Signs Date Time Temp Pulse Resp B/P B/P Pulse O2 O2 Flow FiO2 Mean Ox Delivery Rate 12/05 0914 85 110/64 12/05 0556 98.0 85 20 110/64 94 Room Air 12/04 2201 98.2 85 18 120/76 95 Room Air 12/04 2131 85 118/76 12/04 2029 98.2 85 18 118/76 95 Room Air 12/04 1920 97.6 85 20 121/72 94 Room Air 12/04 1705 97.3 85 19 109/81 96 Room Air 12/04 1700 Room Air Room Air 12/04 1349 98.0 79 20 133/90 96 Room Air on exam; aox3, nad. cv; s1,s2, rrr resp; clear abd; soft, distended, bs+ ext; no edema Laboratory Tests 12/05 12/04 0845 1418 Chemistry Sodium (137 - 145 mmol/L) 134 L Potassium (3.5 - 5.1 mmol/L) 4.3 Chloride (98 - 107 mmol/L) 98 Carbon Dioxide (22 - 30 mmol/L) 26 Anion Gap (5 - 16) 10 BUN (9 - 20 mg/dL) 24 H Creatinine (0.7 - 1.2 mg/dL) 0.3 L Estimated GFR (>60 ml/min) > 60 BUN/Creatinine Ratio (7 - 25 %) 80.0 H Glucose (65 - 99 mg/dL) 126 H Lactic Acid (0.7 - 2.1 mmol/L) 2.0 Calcium (8.4 - 10.2 mg/dL) 8.5 Total Bilirubin (0.2 - 1.3 mg/dL) 2.2 H AST (17 - 59 U/L) 18 ALT (21 - 72 U/L) 87 H Alkaline Phosphatase (< 127 U/L) 60 Troponin I (<0.11 ng/ml) < 0.01 Total Protein (6.3 - 8.2 g/dL) 6.1 L Albumin (3.5 - 5.0 g/dL) 3.1 L Globulin (1.9 - 4.2 gm/dL) 3.0 Albumin/Globulin Ratio (1.1 - 2.2 %) 1.0 L Amylase (30 - 110 U/L) 58 Lipase (23 - 300 U/L) 315 H Hematology CBC w Diff NO MAN DIFF REQ MAN DIFF ORDERED WBC (4.8 - 10.8 /CUMM) 14.1 H 20.5 H RBC (4.70 - 6.10 /CUMM) 5.04 5.81 Hgb (14.0 - 18.0 G/DL) 13.9 L 16.0 Hct (42 - 52 %) 42.0 47.9 MCV (80.0 - 94.0 FL) 83.4 82.4 MCH (27.0 - 31.0 PG) 27.5 27.5 MCHC (33.0 - 37.0 G/DL) 33.0 33.4 RDW (11.5 - 14.5 %) 15.4 H 15.4 H Plt Count (130 - 400 /CUMM) 205 208 MPV (7.4 - 10.4 FL) 8.9 8.4 Gran % (42.2 - 75.2 %) 82.7 H 89.1 H Lymphocytes % (20.5 - 51.1 %) 10.2 L 3.8 L Monocytes % (1.7 - 9.3 %) 7.0 4.4 Eosinophils % (0 - 5 %) 0.1 0 Basophils % (0.0 - 2.0 %) 0 2.7 H Absolute Granulocytes (1.4 - 6.5 /CUMM) 11.7 H 18.2 H Segmented Neutrophils (42.2 - 75.2 %) 87 H Band Neutrophils (0.0 - 5.0 %) 2 Absolute Lymphocytes (1.2 - 3.4 /CUMM) 1.4 0.8 L Lymphocytes (20.5 - 51.1 %) 8 L Monocytes (1.7 - 9.3 %) 3 Absolute Monocytes (0.10 - 0.60 /CUMM) 1.0 H 0.9 H Absolute Eosinophils (0.0 - 0.7 /CUMM) 0 0 Absolute Basophils (0.0 - 0.2 /CUMM) 0 0.5 Platelet Estimate (ADEQUATE) ADEQUATE Normocytic RBCs VERIFIED Normochromic RBCs VERIFIED 12/04 1409 Urines Urine Color (YEL,AMB,STR) YEL Urine Clarity (CLEAR) HAZY H Urine pH (5.0 - 8.0) 6.5 Ur Specific [place] (1.001 - 1.035) 1.015 Urine Protein (NEG,<30 MG/DL) NEG Urine Ketones (NEG) NEG Urine Nitrite (NEG) POS H Urine Bilirubin (NEG) NEG Urine Urobilinogen (0.1 - 1.0 EU/dl) 1.0 Ur Leukocyte Esterase (NEG) LARGE H Ur Microscopic SEDIMENT EXAMINED Urine WBC (0 - 2 /HPF) 50-75 H Ur Epithelial Cells (NONE,FEW) RARE Urine Bacteria (NEG/NONE) MANY H Urine Hemoglobin (NEG) TRACE-INTACT H Urine Glucose (N MG/DL) NEG A/P; 57 y/o M with pmh sig for MS, quadriplegia, HFpEF, colonic pseudo- obstruction, neurogenic bladder s/p suprapubic catheter on prophylactic antibiotics, admitted with abd pain, possible UTI, Constipation, with abd CT showing gaseous distention, chronic pseudoobstruction or ileus. Will clarify with patient about prophylactic abx for uti. He does have positive UA, and urine cx GNR. Will also clarify about Baclofen. Will start the patient on aggressive bowel regimen. Continue all other current regimen. DVt px; Lovenox.
[2017-12-05 14:44] VITALS: BP 108/62
[2017-12-05 20:48] VITALS: BP 116/80
[2017-12-06 06:59] VITALS: BP 112/76
--- NOTE | 2017-12-06 07:23 | PN- Housestaff ---
Nico Shrestha 12/06/17 0723: Subjective Follow-up For: #Abdominal pain #History of MS #Leukocytosis - most likely 2/2 Prednisone use Subjective: Patient reports abdominal discomfort without tenderness due to abdominal distention. Denies nausea, vomiting, fever, chills. RN reports patient has a copious amount of stool Review of Systems Constitutional: Reports: see HPI. Objective Last 24 Hrs of Vital Signs/I&O Vital Signs Date Time Temp Pulse Resp B/P B/P Pulse O2 O2 Flow FiO2 Mean Ox Delivery Rate 12/06 0931 78 118/64 12/06 0659 98.0 103 18 112/76 95 12/05 2048 98.4 92 18 116/80 96 Room Air 12/05 2022 93 116/80 12/05 1444 98.6 89 20 108/62 94 Room Air Intake & Output 12/06 1600 12/06 0800 12/06 0000 Intake Total 490 700 Output Total 1250 360 Balance -760 340 Intake, IV 10 Intake, Oral 480 700 Number 2 Bowel Movements Output, Urine 1250 360 Patient 182 lb Weight Physical Exam General Appearance: Alert, Oriented X3, Cooperative, Quadriplegic Skin: Groin rash Cardiovascular: Regular Rate, Normal S1, Normal S2 Lungs: Clear to Auscultation, Normal Air Movement Abdomen: abdominal distention and mild discomfort on palpation Extremities: No Edema Current Medications: Current Medications Sig/Danitza Start time Last Medication Dose Route Stop Time Status Admin Baclofen 10 MG 7:30 AM, & 4:30 PM 12/05 0730 UT 12/06 PO 0626 Bisacodyl 5 MG DAILY 12/05 0900 12/05 PO 0914 Carvedilol 12.5 MG BID 12/04 2100 AC 12/06 PO 0931 Enoxaparin Sodium 40 MG DAILY 12/04 1742 12/06 SC 0931 Non-Formulary 0 SEE ADMIN CRITERIA 12/04 191 CAN Medication ANY Nystatin 1 CATRACHO BID 12/06 1251 AC TOP Omeprazole 40 MG DAILY AC 12/05 0700 AC 12/06 PO 0626 Polyethylene Glycol 17 GM DAILY 12/06 1155 AC PO Potassium Chloride 40 MEQ ONCE ONE 12/06 1300 DC PO 12/06 1301 Prednisone 20 MG Q8 12/06 1400 DC PO Prednisone 20 MG Q8 12/06 0945 AC 12/06 PO 0946 Prednisone 20 MG Q8P PRN 12/05 0830 DC 12/06 PO 0328 Senna 187 MG AT BEDTIME 12/04 2100 AC 12/05 PO 2022 Spironolactone 25 MG DAILY 12/05 0900 AC 12/06 PO 0930 Last 24 Hrs of Lab/Parker Results Last 24 Hrs of Labs/Mics: Laboratory Tests 12/06/17 0715: Anion Gap 9, Estimated GFR > 60, BUN/Creatinine Ratio 50.0 H, CBC w Diff NO MAN DIFF REQ, RBC 4.94, MCV 83.4, MCH 27.5, MCHC 33.0, RDW 15.7 H, MPV 9.2, Gran % 91.1 H, Lymphocytes % 6.5 L, Monocytes % 2.4, Eosinophils % 0, Basophils % 0, Absolute Granulocytes 12.3 H, Absolute Lymphocytes 0.9 L, Absolute Monocytes 0.3, Absolute Eosinophils 0, Absolute Basophils 0 Assessment/Plan Assessment: Mr Simpson is a 55 yo m with a PMH of MS, quadriplegia, HFpEF, colonic pseudo- obstruction, neurogenic bladder s/p suprapubic catheter who presents to the ED with abdominal pressure. CT abd/pel showed asymptomatic Cholelithiasis without additional findings to suggest acute cholecystitis with prominent gaseous distention of the colon, most prominently affecting the sigmoid colon suggestive of chronic pseudoobstruction or ileus. Problem list: #Abdominal pain #History of MS #Leukocytosis - most likely 2/2 Prednisone use #Pseudo-obstruction Plan: Start Nystatin for groin rash Abdominal XR to visualize gas and/or stool in colon due to persistent abdominal distention Follow off antibiotics and monitor white count Continue Prednisone taper for MS, Spironolactone, Carvedilol We will discontinue Baclofen due to the possibility of causing pseudo- obstruction (discussed with Dr. Preciado) Continue bowel regimen We will add Miralax to current bowel regimen Appreciate ID recommendation Diet: Regular DVT ppx: sc Enoxaparin Code: FULL Problem List: 1. ABDOMINAL DISTENSION Pain Ratin Pain Location: NA Pain Goal: Remain pain free Pain Plan: NA Tomorrow's Labs & Rationales: CBC, BEP Ramiro ZAMORA,Aggie 12/06/17 1154: Attending MD Review Statement Attending Statement Attending MD Statement: examined this patient, discuss w/resident/PA/WELL LOGGER, agreed w/resident/PA/WELL LOGGER, reviewed EMR data (avail), discussed with nursing, discussed with case mgmt, reviewed images, amended to note Attending Assessment/Plan: Patient seen and examined, still feels pretty bloated although he had copious bowel movement overnight. Urine culture growing mixed colonies. Vital Signs Date Time Temp Pulse Resp B/P B/P Pulse O2 O2 Flow FiO2 Mean Ox Delivery Rate 12/06 0931 78 118/64 12/06 0659 98.0 103 18 112/76 95 12/058 98.4 92 18 116/80 96 Room Air 12/05 2022 93 116/80 12/05 1444 98.6 89 20 108/62 94 Room Air on exam; aox3, nad. cv; s1,s2, rrr resp; clear abd; soft, nt, bs+, somewhat distended. ext; no edema Laboratory Tests 12/06 714 Chemistry Sodium (137 - 145 mmol/L) 137 Potassium (3.5 - 5.1 mmol/L) 3.4 L Chloride (98 - 107 mmol/L) 104 Carbon Dioxide (22 - 30 mmol/L) 24 Anion Gap (5 - 16) 9 BUN (9 - 20 mg/dL) 15 Creatinine (0.7 - 1.2 mg/dL) 0.3 L Estimated GFR (>60 ml/min) > 60 BUN/Creatinine Ratio (7 - 25 %) 50.0 H Hematology CBC w Diff NO MAN DIFF REQ WBC (4.8 - 10.8 /CUMM) 13.5 H RBC (4.70 - 6.10 /CUMM) 4.94 Hgb (14.0 - 18.0 G/DL) 13.6 L Hct (42 - 52 %) 41.2 L MCV (80.0 - 94.0 FL) 83.4 MCH (27.0 - 31.0 PG) 27.5 MCHC (33.0 - 37.0 G/DL) 33.0 RDW (11.5 - 14.5 %) 15.7 H Plt Count (130 - 400 /CUMM) 181 MPV (7.4 - 10.4 FL) 9.2 Gran % (42.2 - 75.2 %) 91.1 H Lymphocytes % (20.5 - 51.1 %) 6.5 L Monocytes % (1.7 - 9.3 %) 2.4 Eosinophils % (0 - 5 %) 0 Basophils % (0.0 - 2.0 %) 0 Absolute Granulocytes (1.4 - 6.5 /CUMM) 12.3 H Absolute Lymphocytes (1.2 - 3.4 /CUMM) 0.9 L Absolute Monocytes (0.10 - 0.60 /CUMM) 0.3 Absolute Eosinophils (0.0 - 0.7 /CUMM) 0 Absolute Basophils (0.0 - 0.2 /CUMM) 0 A/P; 57 y/o M with pmh sig for MS, quadriplegia, HFpEF, colonic pseudo- obstruction, neurogenic bladder s/p suprapubic catheter, admitted with abd pain , possible UTI, Constipation, with abd CT showing gaseous distention, chronic pseudoobstruction or ileus. Upon further questioning, patient verified that he is not taking baclofen for last couple of years. I recommend that he should check with Bartolo Cai MD about the use of muscle relaxant because patient did feel better on starting here. Baclofen can cause possible ileus and if the patient already has evidence off constipation with pseudoobstruction or ileus I'm not sure if it is a good idea to start him on baclofen. We contacted Bartolo Cai MD and he recommended no baclofen. Pt did mention that he used to be on Zanaflex at one point. We need to discuss this with Dr. Cai if any other muscle relxanat would be a choice. We are waiting for infectious disease input in terms of finding out if patient has a true UTI that needs treatment. Patient still feels distended. I recommend getting an abdominal x-ray and if there is still large amount of stool that he should be getting more bowel regimen such as MiraLAX. It also tried milk of magnesia if MiraLAX is not effective. Continue the rest of the management. DVT Px; Lovenox.
[2017-12-06 09:14] LABS: ABSOLUTE BASOPHIL COUNT 0 /CUMM (0.0-0.2); ABSOLUTE EOSINOPHIL COUNT 0 /CUMM (0.0-0.7); ABSOLUTE GRANULOCYTE CT 12.3 /CUMM (1.4-6.5); ABSOLUTE LYMPH COUNT 0.9 /CUMM (1.2-3.4); ABSOLUTE MONOCYTE COUNT 0.3 /CUMM (0.10-0.60); BASOPHIL % 0 % (0.0-2.0); EOSINOPHIL % 0 % (0-5); GRANULOCYTE % 91.1 % (42.2-75.2); HEMATOCRIT 41.2 % (42-52); MEAN CORPUSCULAR HGB 27.5 PG (27.0-31.0); MEAN CORPUSCULAR VOLUME 83.4 FL (80.0-94.0); MEAN PLATELET VOLUME 9.2 FL (7.4-10.4); PLATELET COUNT 181 /CUMM (130-400); RBC DISTRIBUTION WIDTH 15.7 % (11.5-14.5); RED BLOOD CELL CT 4.94 /CUMM (4.70-6.10)
[2017-12-06 10:20] LABS: WHITE BLOOD CELL COUNT 13.5 /CUMM (4.8-10.8)
--- NOTE | 2017-12-06 13:43 | Cons- Infect Disease ---
General Information and HPI Consulting Request Date of Consult: 12/06/17 Requested By: Aggie Rubio MD Reason for Consult: Leukocytosis/rule out UTI Source of Information: patient, old records History of Present Illness: This is a 57-year-old man with a history of multiple sclerosis, with secondary paraplega, treated with 1 month of steroids every 3 months, neurogenic bladder, status post suprapubic cystostomy for 10 years, hypertension, CHF, cardiomyopathy and recurrent pseudoobstruction, status post a Podiatry visit 1 week prior to admission to cut his toenails, admitted on December 04 with several days of abdominal discomfort and distention associated with right shoulder and chest pain. On admission he was afebrile. Laboratory data revealed a white blood cell count of 21,000, with 87 segs and 2 bands, BUN/creatinine 24 and 0.3, lipase 315, bilirubin 2.2, AST/ALT 18 and 87. Urinalysis 50-[address] of the abdomen and pelvis revealed prominent gaseous distention of the colon, most prominently affecting the sigmoid colon, suggestive of chronic pseudoobstruction or ileus, and cholelithiasis, with no findings to suggest acute cholecystitis. He was continued on his tapering steroids. He was given 1 dose of Unasyn and then followed off antibiotics. He has remained afebrile (on steroids) and his white blood cell count has been decreasing. He feels improved from admission with no specific complaints at this time. Allergies/Medications Allergies: Coded Allergies: No Known Allergies (12/04/17) Home Med List: Ascorbate Calcium/Bioflavonoid (Maryann-C 500 MG Tablet) 500 MG-200 MG TABLET 1 TAB PO DAILY SUPPLEMENT (Reported) Baclofen 10 MG TABLET 1 TAB PO AD MUSCLE SPASMS (Reported) Bifidobacterium Infantis (Align) 4 MG (1 BILLION CELL) CAPSULE 1 CAP PO DAILY GI (Reported) Carvedilol (Coreg) 12.5 MG TABLET 1 TAB PO BID HEART (Reported) Cholecalciferol (Vitamin D3) (Vitamin D3) 2,000 UNIT TABLET 1 TAB PO DAILY VITAMIN SUPPORT (Reported) Cod Liver Oil 1 EACH CAPSULE 1 CAP PO DAILY SUPPLEMENT (Reported) Cyanocobalamin (Vitamin B-12) (Vitamin B-12) 500 MCG TABLET 1 TAB PO DAILY VITAMIN SUPPORT (Reported) Ibuprofen (Advil Liqui-Gels) 200 MG CAPSULE 2 CAP PO Q4H PRN PAIN (Reported) Interferon Beta-1a/Albumin (Avonex Admin Pack 30 Mcg Vl) 30 MCG (1 ML) KIT 1 ML IM QWED MS (Reported) Krill/Om-3/Dha/Epa/Phospho/Ast (Megared [place]-3 Krill Oil Sfgl) 300-90-24 CAPSULE 1 CAP PO DAILY SUPPLEMENT (Reported) Nitrofurantoin Macrocrystal (Nitrofurantoin) 100 MG CAPSULE 1 CAP PO Q12H (Reported) Nystatin 100,000 UNIT/GRAM CREAM..G. 1 CATRACHO TOP AD PRN SKIN (Reported) apply to affected area(s) Pantoprazole Sodium 40 MG TABLET.DR 1 TAB PO DAILY ACID REFLUX (Reported) Potassium Chloride (Klor-Con M20) 20 MEQ TAB.ER.PRT 1 TAB PO BID SUPPLEMENT ( Reported) Prednisone 20 MG TABLET 1 TAB PO Q8 PRN ms exacerbation (Reported) Spironolactone (Aldactone) 25 MG TABLET 1 TAB PO DAILY WATER RETENTION ( Reported) Vits A and D/White Pet/Lanolin (A and D Ointment) 42.5 GM OINT...G. 1 CATRACHO TOP AD PRN SKIN (Reported) ZINC 50 MG TABLET 1 TAB PO DAILY SUPPLEMENT (Reported) Past History Travel History Traveled to [place] past 21 day No Medical History Blood Transfusion Hx: No Neurological: multiple sclerosis EENT: NONE Cardiovascular: cardiomyopathy, hypertension, CONGESTIVE HEART FAILURE HPL CARDIOMYOPATHY Respiratory: NONE Gastrointestinal: PSEUDOOBSTRUCTION Hepatic: NONE Renal: SUPRAPUBIC TUBE-FREQUENT OBSTRUCTION. 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 Home Who Do You Live With? parent Services at Home: Home Health Aide, Nursing Smoking Status: Former Smoker ETOH Use: denies use Illicit Drug Use: denies illicit drug use Functional Ability ADLs Needs Assist: dressing, eating, toileting, bathing. Ambulation: non-ambulatory IADLs Needs Assist: shopping, housework, finances, food prep, telephone, transportation, medication admin. Review of Systems Review of Systems All Other Systems: Reviewed and Negative Exam & Diagnostic Data Last 24 Hrs of Vital Signs/I&O Vital Signs Date Time Temp Pulse Resp B/P B/P Pulse O2 O2 Flow FiO2 Mean Ox Delivery Rate 12/06 0931 78 118/64 12/06 0659 98.0 103 18 112/76 95 12/05 2048 98.4 92 18 116/80 96 Room Air 12/05 2022 93 116/80 12/05 1444 98.6 89 20 108/62 94 Room Air Intake & Output 12/06 1600 12/06 0800 12/06 0000 Intake Total 490 700 Output Total 1250 360 Balance -760 340 Intake, IV 10 Intake, Oral 480 700 Number 2 Bowel Movements Output, Urine 1250 360 Patient 182 lb Weight Physical Exam Other Physical Findings: He is awake and alert in no acute distress. He is afebrile on steroids. Skin reveals no rash. HEENT exam is negative. Neck is supple with no adenopathy. Lungs are clear. Heart regular rhythm with no murmur. Abdomen is distended, mildly tender to palpation in the upper abdomen, with no guarding or rebound, positive bowel sounds; suprapubic tube in place with no inflammation at the site. Back no CVA tenderness. Extremities erythema, edema and warmth over the dorsum of the left foot, nontender to palpation, with decreased pulses; small necrotic lesion on the dorsum of the left second toe with no surrounding inflammation; right foot and leg cool, with decreased pulses. Neuro paraplegia, with 2-3/5 strength of the left upper extremity and 2/5 strength of the right upper extremity. Last 24 Hours of Lab Results: Laboratory Tests 12/06 0715 Chemistry Sodium (137 - 145 mmol/L) 137 Potassium (3.5 - 5.1 mmol/L) 3.4 L Chloride (98 - 107 mmol/L) 104 Carbon Dioxide (22 - 30 mmol/L) 24 Anion Gap (5 - 16) 9 BUN (9 - 20 mg/dL) 15 Creatinine (0.7 - 1.2 mg/dL) 0.3 L Estimated GFR (>60 ml/min) > 60 BUN/Creatinine Ratio (7 - 25 %) 50.0 H Hematology CBC w Diff NO MAN DIFF REQ WBC (4.8 - 10.8 /CUMM) 13.5 H RBC (4.70 - 6.10 /CUMM) 4.94 Hgb (14.0 - 18.0 G/DL) 13.6 L Hct (42 - 52 %) 41.2 L MCV (80.0 - 94.0 FL) 83.4 MCH (27.0 - 31.0 PG) 27.5 MCHC (33.0 - 37.0 G/DL) 33.0 RDW (11.5 - 14.5 %) 15.7 H Plt Count (130 - 400 /CUMM) 181 MPV (7.4 - 10.4 FL) 9.2 Gran % (42.2 - 75.2 %) 91.1 H Lymphocytes % (20.5 - 51.1 %) 6.5 L Monocytes % (1.7 - 9.3 %) 2.4 Eosinophils % (0 - 5 %) 0 Basophils % (0.0 - 2.0 %) 0 Absolute Granulocytes (1.4 - 6.5 /CUMM) 12.3 H Absolute Lymphocytes (1.2 - 3.4 /CUMM) 0.9 L Absolute Monocytes (0.10 - 0.60 /CUMM) 0.3 Absolute Eosinophils (0.0 - 0.7 /CUMM) 0 Absolute Basophils (0.0 - 0.2 /CUMM) 0 Last 24 Hours of Parker Results: Blood cultures 2 December 04 negative Urine culture December 04 multiple colony types consistent with contamination Diagnostic Data Recent Imaging Findings: CT of the abdomen and pelvis revealed prominent gaseous distention of the colon, most prominently affecting the sigmoid colon, suggestive of chronic pseudoobstruction or ileus, and cholelithiasis, with no findings to suggest acute cholecystitis. Assessment/Plan Assessment/Plan Impression: This is a 57-year-old man with a history of multiple sclerosis, with secondary paraplega, treated with 1 month of steroids every 3 months, neurogenic bladder, status post suprapubic cystostomy for 10 years, and recurrent pseudoobstruction, admitted on December 04 with several days of abdominal discomfort and distention, associated with right shoulder and chest pain, found to be afebrile with a leukocytosis, elevated liver enzymes and pyuria with a CT of the abdomen and pelvis revealing findings suggestive of chronic pseudoobstruction or ileus and cholelithiasis. The leukocytosis may well be secondary to the steroids, which he takes for 24 days every 3 months, in a tapering schedule, for his multiple sclerosis, but other possible sources include the pseudoobstruction, which is a chronic problem , a biliary process, given his right upper quadrant and right shoulder complaints, with an elevated bilirubin, lipase and transaminases on admission, a urinary tract infection secondary to the suprapubic catheter, or a cellulitis of the left foot, given the inflammation over the dorsum, though it is not clear if this is an acute process. The urine culture was dismissed as a contaminant as at least 3 organisms were isolated, but, in the setting of an indwelling catheter, this could represent true infection. His right foot and leg are quite cool, which he states is a chronic problem, but the left foot does feel warm, and, therefore, may represent an acute process. He was recently seen by Podiatry and this can be discussed further with them. His white blood cell count is decreasing off antibiotics; therefore am not convinced that he has an acute infection and, as he appears stable, it may be reasonable to continue to follow his temperatures and white blood cell count off antibiotics pending further evaluation. Suggestion: 1. Right upper quadrant ultrasound 2. Elevation of the left leg 3. Will discuss duration of his left foot inflammation with Podiatry 4. Taper steroids per his schedule 5. Continue to follow temperatures and white blood cell count off antibiotics pending above Consult Acknowledgment - Thank you for your consult request.
[2017-12-06 14:35] VITALS: BP 112/72
--- NOTE | 2017-12-06 15:13 | RADIOLOGY REPORT ---
EXAMINATION: XR PORTABLE ABDOMEN CLINICAL INFORMATION: Abdominal distention. COMPARISON: 04/02/2016 TECHNIQUE: AP view of the abdomen. FINDINGS: Single AP view of the abdomen, which captures only a portion of the mid/right abdomen. The remainder of the abdomen is not included in the [id number]. In the visualized portion, are markedly dilated bowel loops seen, suspected to represent large bowel loops. There are smaller nondilated bowel loops seen in the right abdomen, suspected to represent nondilated small bowel loops. IMPRESSION: Incomplete evaluation, with only a portion of the right abdomen included in the [id number]. Markedly dilated bowel loops seen, likely representing markedly dilated large colon. This is incompletely imaged and evaluated. Recommend repeat abdominal radiographs to include the entire abdomen for further evaluation.
--- NOTE | 2017-12-06 16:48 | Patient Discharge Instructions ---
Discharge Instructions General Discharge Information You were seen/treated for: Abdominal pain Elevated white count You had these procedures: none Special Instructions: Avoid Baclofen due to the possibility of causing pseudo-obstruction Avoid antidiarrheal medications and excessive diary. Follow up the neurologist-Ilana within 1 week of discharge and continue your prednisone taper as directed Follow up with your PCP-Dr. Levy within 1-2 weeks of discharge Anu [phone] caregiver Diet Continue normal diet: Yes Activity Other activity limits: Wheelchair bound Acute Coronary Syndrome Inclusion Criteria At DC or during hospital stay patient has or had the following: ACS DIAGNOSIS No Discharge Core Measures Meds if any: Prescribed or Continued at Discharge Meds if any: NOT Prescribed or Continued at Discharge Congestive Heart Failure Inclusion Criteria At DC or during hospital stay patient has or had the following: CHF DIAGNOSIS No Discharge Core Measures Meds if any: Prescribed or Continued at Discharge Meds if any: NOT Prescribed or Continued at Discharge Cerebrovascular accident Inclusion Criteria At DC or during hospital stay patient has or had the following: CVA/TIA Diagnosis No Discharge Core Measures Meds if any: Prescribed or Continued at Discharge Meds if any: NOT Prescribed or Continued at Discharge Venous thromboembolism Inclusion Criteria VTE Diagnosis No VTE Type NONE VTE Confirmed by (Test) NONE Discharge Core Measures - Per Current guidelines, there needs to be overlap - treatment for the first 5 days of Warfarin therapy. - If discharged on Warfarin prior to 5 days of - overlap therapy, the patient will need to be - assessed for post discharge needs including - *Post discharge parental anticoagulation - *Warfarin and/or parental anticoagulation education - *Follow up date to check INR post discharge At least 5 days overlap therapy as Inpatient No Meds if any: Prescribed or Continued at Discharge Note: Overlap Therapy is Warfarin and Anticoagulant Meds if any: NOT Prescribed or Continued at Discharge
--- NOTE | 2017-12-06 17:25 | Cons- Podiatry ---
General Information and HPI Consulting Request Date of Consult: 12/06/17 Requested By: Ramiro ZAMORA,Aggie Reason for Consult: Partial thickness lesion of the left 4th PIPJ and left foot cellulitis. Source of Information: patient Exam Limitations: no limitations History of Present Illness: This is a 57-year-old bedbound male with a PMH of MS, quadriplegia, HFpEF, colonic pseudo-obstruction, neurogenic bladder s/p suprapubic catheter on prophylactic antibiotics who was admitted on December 04 to the internal medicine team for colonic pseudoobstruction, UTI, and pyelonephritis. I visited this patient and his home on November 08 for routine foot care including trimming of fungal toenails and simple instructions for care of an abrasion on the dorsum of his left fourth toe. The patient has some redness and warmth in the left hindfoot and ankle compared to the contralateral side, which she states was not present when I had seen him last. The patient was seen by Trevor Trejo MD earlier today. The patient was seen and evaluated at bedside, reports to me that he is in good spirits and feels much better than he did compared to 2 days ago. Allergies/Medications Allergies: Coded Allergies: No Known Allergies (12/04/17) Home Med List: Ascorbate Calcium/Bioflavonoid (Maryann-C 500 MG Tablet) 500 MG-200 MG TABLET 1 TAB PO DAILY SUPPLEMENT (Reported) Baclofen 10 MG TABLET 1 TAB PO AD MUSCLE SPASMS (Reported) Bifidobacterium Infantis (Align) 4 MG (1 BILLION CELL) CAPSULE 1 CAP PO DAILY GI (Reported) Carvedilol (Coreg) 12.5 MG TABLET 1 TAB PO BID HEART (Reported) Cholecalciferol (Vitamin D3) (Vitamin D3) 2,000 UNIT TABLET 1 TAB PO DAILY VITAMIN SUPPORT (Reported) Cod Liver Oil 1 EACH CAPSULE 1 CAP PO DAILY SUPPLEMENT (Reported) Cyanocobalamin (Vitamin B-12) (Vitamin B-12) 500 MCG TABLET 1 TAB PO DAILY VITAMIN SUPPORT (Reported) Ibuprofen (Advil Liqui-Gels) 200 MG CAPSULE 2 CAP PO Q4H PRN PAIN (Reported) Interferon Beta-1a/Albumin (Avonex Admin Pack 30 Mcg Vl) 30 MCG (1 ML) KIT 1 ML IM QWED MS (Reported) Krill/Om-3/Dha/Epa/Phospho/Ast (Megared [place]-3 Krill Oil Sfgl) 300-90-24 CAPSULE 1 CAP PO DAILY SUPPLEMENT (Reported) Nitrofurantoin Macrocrystal (Nitrofurantoin) 100 MG CAPSULE 1 CAP PO Q12H (Reported) Nystatin 100,000 UNIT/GRAM CREAM..G. 1 CATRACHO TOP AD PRN SKIN (Reported) apply to affected area(s) Pantoprazole Sodium 40 MG TABLET.DR 1 TAB PO DAILY ACID REFLUX (Reported) Potassium Chloride (Klor-Con M20) 20 MEQ TAB.ER.PRT 1 TAB PO BID SUPPLEMENT ( Reported) Prednisone 20 MG TABLET 1 TAB PO Q8 PRN ms exacerbation (Reported) Spironolactone (Aldactone) 25 MG TABLET 1 TAB PO DAILY WATER RETENTION ( Reported) Vits A and D/White Pet/Lanolin (A and D Ointment) 42.5 GM OINT...G. 1 CATRACHO TOP AD PRN SKIN (Reported) ZINC 50 MG TABLET 1 TAB PO DAILY SUPPLEMENT (Reported) Current Medications: Current Medications Sig/Danitza Start time Last Medication Dose Route Stop Time Status Admin Baclofen 10 MG 7:30 AM, & 4:30 PM 12/05 0730 MO 12/06 PO 0626 Bisacodyl 5 MG DAILY 12/05 0900 AC 12/05 PO 0914 Carvedilol 12.5 MG BID 12/04 2100 AC 12/06 PO 0931 Enoxaparin Sodium 40 MG DAILY 12/04 1742 AC 12/06 SC 0931 Nystatin 1 CATRACHO BID 12/06 1251 AC 12/06 TOP 1522 Omeprazole 40 MG DAILY AC 12/05 0700 AC 12/06 PO 0626 Polyethylene Glycol 17 GM DAILY 12/06 1155 12/06 PO 1347 Potassium Chloride 40 MEQ ONCE ONE 12/06 1300 DC 12/06 PO 12/06 1301 1523 Prednisone 20 MG Q8 12/06 1400 DC PO Prednisone 20 MG Q8 12/06 0945 AC 12/06 PO 1458 Prednisone 20 MG Q8P PRN 12/05 0830 MO 12/06 PO 0328 Senna 187 MG AT BEDTIME 12/04 2100 12/05 PO 2023 Spironolactone 25 MG DAILY 12/05 0900 AC 12/06 PO 0930 Past History Medical History Blood Transfusion Hx: No Neurological: multiple sclerosis EENT: NONE Cardiovascular: cardiomyopathy, hypertension, CONGESTIVE HEART FAILURE HPL CARDIOMYOPATHY Respiratory: NONE Gastrointestinal: PSEUDOOBSTRUCTION Hepatic: NONE Renal: SUPRAPUBIC TUBE-FREQUENT OBSTRUCTION. 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 Home Who Do You Live With? parent Services at Home: Home Health Aide, Nursing Smoking Status: Former Smoker ETOH Use: denies use Illicit Drug Use: denies illicit drug use Functional Ability ADLs Needs Assist: dressing, eating, toileting, bathing. Ambulation: non-ambulatory IADLs Needs Assist: shopping, housework, finances, food prep, telephone, transportation, medication admin. Employment History Retired? yes Review of Systems Review of Systems: A 14 point review of systems was performed, and was found to be negative apart from the patient's complaints described above in the history of present illness. Exam & Diagnostic Data Vital Signs and I&O Vital Signs Date Time Temp Pulse Resp B/P B/P Pulse O2 O2 Flow FiO2 Mean Ox Delivery Rate 12/06 1435 97.6 86 18 112/72 95 12/06 0931 78 118/64 12/06 0659 98.0 103 18 112/76 95 12/05 2048 98.4 92 18 116/80 96 Room Air 12/05 2022 93 116/80 Intake & Output 12/06 1600 12/06 0800 12/06 0000 12/05 1600 12/05 0800 12/05 0000 Intake Total 600 490 700 852 084 6057 Output Total 400 1250 360 350 275 650 Balance 200 -760 340 130 225 450 Intake, IV 10 0 20 1100 Intake, Oral 600 480 700 480 480 Number 1 2 1 0 Bowel Movements Output, Urine 400 1250 360 350 275 650 Patient 182 lb 181 lb 181 lb Weight Weight Bed scale Measurement Method Physical Exam: The patient has nonpalpable pedal pulses bilaterally, temperature gradient is normal on the right lower extremity, there is some warmth on the dorsal hindfoot of the left side, but other than this there is no deviation from the contralateral side. There is +1 pitting edema equal and bilateral. There is significant muscle atrophy consistent with his bedbound status. There is dependent rubor in the distal half of all 10 toes, and there are no changes in the toenails from when I had seen him 1 month ago. Also redemonstrated is the superficial lesion on the dorsum of his left fourth proximal interphalangeal joint, and there is no localized edema, erythema, calor, nor drainage. There is a small patch of faint erythema on the dorsal left hindfoot, and this does not resolve with elevation as the dependent rubor in the toes does. Last 24 Hours of Labs: Laboratory Tests 12/06 0715 Chemistry Sodium (137 - 145 mmol/L) 137 Potassium (3.5 - 5.1 mmol/L) 3.4 L Chloride (98 - 107 mmol/L) 104 Carbon Dioxide (22 - 30 mmol/L) 24 Anion Gap (5 - 16) 9 BUN (9 - 20 mg/dL) 15 Creatinine (0.7 - 1.2 mg/dL) 0.3 L Estimated GFR (>60 ml/min) > 60 BUN/Creatinine Ratio (7 - 25 %) 50.0 H Hematology CBC w Diff NO MAN DIFF REQ WBC (4.8 - 10.8 /CUMM) 13.5 H RBC (4.70 - 6.10 /CUMM) 4.94 Hgb (14.0 - 18.0 G/DL) 13.6 L Hct (42 - 52 %) 41.2 L MCV (80.0 - 94.0 FL) 83.4 MCH (27.0 - 31.0 PG) 27.5 MCHC (33.0 - 37.0 G/DL) 33.0 RDW (11.5 - 14.5 %) 15.7 H Plt Count (130 - 400 /CUMM) 181 MPV (7.4 - 10.4 FL) 9.2 Gran % (42.2 - 75.2 %) 91.1 H Lymphocytes % (20.5 - 51.1 %) 6.5 L Monocytes % (1.7 - 9.3 %) 2.4 Eosinophils % (0 - 5 %) 0 Basophils % (0.0 - 2.0 %) 0 Absolute Granulocytes (1.4 - 6.5 /CUMM) 12.3 H Absolute Lymphocytes (1.2 - 3.4 /CUMM) 0.9 L Absolute Monocytes (0.10 - 0.60 /CUMM) 0.3 Absolute Eosinophils (0.0 - 0.7 /CUMM) 0 Absolute Basophils (0.0 - 0.2 /CUMM) 0 Assessment/Plan Assessment/Plan 57-year-old male with multiple sclerosis and multiple medical problems admitted for pseudo-obstruction of the colon as well as UTI/pyelonephritis, with a small erythematous patch on the dorsal left hindfoot, with a small superficial lesion on the dorsum of the left fourth digit that local he does not exhibit any clinical signs of infection. Patient was seen and evaluated at bedside. Case was discussed with Dr. Trejo earlier this afternoon, and I agree with his assessment that the patch is at worst a small cellulitis and does not appear to be associated with the small abrasion. Reviewed 11/08 home visit note. Toenails and small abrasion are stable compared to that time. May use a miniscule amount of Neosporin on the lesion, but it otherwise does not require formal wound care. No further podiatric intervention at this time. Reconsult prn. Consult Acknowledgment - Thank you for your consult request.
[2017-12-06] MEDS ORDERED: SENNA-TIME S T1 EACH PO (18:11)
[2017-12-06] MEDS ORDERED: MIRALAX119 GM PO (18:11)
[2017-12-06 21:50] VITALS: BP 90/60
--- NOTE | 2017-12-06 21:54 | RADIOLOGY REPORT ---
EXAMINATION: XR ABDOMEN CLINICAL INDICATION: History of pseudoobstruction.. Abdominal distention. Gas pressure. COMPARISON: Numerous prior studies. Most recent abdomen radiograph performed earlier today, 1:[address] scan abdomen pelvis 12/04/2017. TECHNIQUE: AP view of the abdomen. FINDINGS: The significant gaseous distention of the large bowel consistent with history of pseudoobstruction is again demonstrated. The cecum is distended to a diameter of about 23 cm. The cecum is distended to a diameter of about 18 cm on the exam of 04/02/2016. Cecum measures about 16.[address] abdomen pelvis of 12/04/2017. There is gaseous distention of the stomach as well. The small bowel loops are decompressed. The bowel pattern is unchanged since prior study. There is a moderate volume of stool in the right colon. No free air. IMPRESSION: Significant gaseous distention of large bowel consistent with history of pseudoobstruction. The bowel pattern is similar to prior studies. The cecum is more distended on this exam than previous exams.
[2017-12-07 05:48] VITALS: BP 108/64
--- NOTE | 2017-12-07 07:08 | PN- Housestaff ---
Nico Shrestha 12/07/17 0707: Subjective Follow-up For: #Abdominal pain #History of MS #Leukocytosis - most likely 2/2 Prednisone use Subjective: Patient reports increased abdominal distention this morning with abdominal discomfort. Denies nausea, vomiting, fever, chills, urinary or bowel symptoms Review of Systems Constitutional: Reports: see HPI. Objective Last 24 Hrs of Vital Signs/I&O Vital Signs Date Time Temp Pulse Resp B/P B/P Pulse O2 O2 Flow FiO2 Mean Ox Delivery Rate 12/07 0548 97.6 64 20 108/64 96 Room Air 12/06 2150 98.0 78 20 90/60 96 Room Air 12/06 2127 78 90/60 12/06 1435 97.6 86 18 112/72 95 12/06 0931 78 118/64 Intake & Output 12/07 1600 12/07 0800 12/07 0000 Intake Total 720 Output Total 350 650 Balance -350 70 Intake, Oral 720 Number 2 3 Bowel Movements Output, Urine 350 650 Patient 188 lb Weight Physical Exam General Appearance: Alert, Oriented X3, Cooperative, No Acute Distress, Quadriplegic Cardiovascular: Regular Rate, Normal S1, Normal S2 Lungs: Clear to Auscultation, Normal Air Movement Abdomen: Abdominal distention without tenderness Current Medications: Current Medications Sig/Danitza Start time Last Medication Dose Route Stop Time Status Admin Baclofen 10 MG 7:30 AM, & 4:30 PM 12/05 0730 [place] 12/06 PO 0626 Bisacodyl 5 MG DAILY 12/05 0900 12/05 PO 0914 Carvedilol 12.5 MG BID 12/04 2100 AC 12/06 PO 0931 Enoxaparin Sodium 40 MG DAILY 12/04 1742 AC 12/06 SC 0931 Neomycin/Polymyxin/ 1 CATRACHO DAILY 12/06 1742 AC 12/06 Bacitracin EXT 2127 Nystatin 1 CATRACHO BID 12/06 1251 AC 12/06 TOP 2128 Omeprazole 40 MG DAILY AC 12/05 0700 AC 12/07 PO 0534 Polyethylene Glycol 17 GM DAILY 12/06 1155 AC 12/06 PO 1347 Potassium Chloride 40 MEQ ONCE ONE 12/06 1300 DC 12/06 PO 12/06 1301 1523 Prednisone 20 MG Q8 12/06 1400 DC PO Prednisone 20 MG Q8 12/06 0945 12/07 PO 0534 Senna 187 MG AT BEDTIME 12/04 2100 AC 12/06 PO 2126 Spironolactone 25 MG DAILY 12/05 0900 AC 12/06 PO 0930 Assessment/Plan Assessment: Mr Simpson is a 55 yo m with a PMH of MS, quadriplegia, HFpEF, colonic pseudo- obstruction, neurogenic bladder s/p suprapubic catheter who presents to the ED with abdominal pressure. CT abd/pel showed asymptomatic Cholelithiasis without additional findings to suggest acute cholecystitis with prominent gaseous distention of the colon, most prominently affecting the sigmoid colon suggestive of chronic pseudoobstruction or ileus. Problem list: #Abdominal pain #History of MS #Leukocytosis - most likely 2/2 Prednisone use #Pseudo-obstruction Plan: US abd consistent with cholelithiasis Continue Nystatin for groin rash Abdominal XR consistent with pseudo-obstruction with enlarged cecum Follow off antibiotics and monitor white count Continue Prednisone taper for MS, Spironolactone, Carvedilol Baclofen discontinue due to the possibility of causing pseudo-obstruction ( discussed with Dr. Preciado) Continue bowel regimen Appreciate ID recommendation Surgery consult for abdmominal distention Diet: Regular DVT ppx: sc Enoxaparin Code: FULL Problem List: 1. ABDOMINAL DISTENSION Pain Ratin Pain Location: NA Pain Goal: Remain pain free Pain Plan: NA Tomorrow's Labs & Rationales: CBC, BEP Ramiro ZAMORA,Aggie 12/07/17 1137: Attending MD Review Statement Attending Statement Attending MD Statement: examined this patient, discuss w/resident/PA/ASSISTANT PROFESSOR OF NURSING, agreed w/resident/PA/ASSISTANT PROFESSOR OF NURSING, reviewed EMR data (avail), discussed with nursing, discussed with case mgmt, reviewed images, amended to note Attending Assessment/Plan: Patient seen and examined, claims that last night he felt that his abdomen was more flat and less distended. This morning he felt that abdominal got more distended. He still feels uncomfortable. His abdominal x-ray shows more distention especially in the cecum. Vital Signs Date Time Temp Pulse Resp B/P B/P Pulse O2 O2 Flow FiO2 Mean Ox Delivery Rate 12/07 0923 72 112/64 12/07 0548 97.6 64 20 108/64 96 Room Air 12/060 98.0 78 20 90/60 96 Room Air 12/067 78 90/60 12/06 1435 97.6 86 18 112/72 95 on exam; aox3, nad. cv; s1,s2 rrr resp; clear abd; soft, distnded, bs + but slightly hypoactive today. ext; no edema Laboratory Tests 12/07 0845 Chemistry Sodium (137 - 145 mmol/L) 140 Potassium (3.5 - 5.1 mmol/L) 3.6 Chloride (98 - 107 mmol/L) 106 Carbon Dioxide (22 - 30 mmol/L) 24 Anion Gap (5 - 16) 11 BUN (9 - 20 mg/dL) 15 Creatinine (0.7 - 1.2 mg/dL) 0.3 L Estimated GFR (>60 ml/min) > 60 BUN/Creatinine Ratio (7 - 25 %) 50.0 H Hematology CBC w Diff NO MAN DIFF REQ WBC (4.8 - 10.8 /CUMM) 11.1 H RBC (4.70 - 6.10 /CUMM) 4.91 Hgb (14.0 - 18.0 G/DL) 13.4 L Hct (42 - 52 %) 41.0 L MCV (80.0 - 94.0 FL) 83.6 MCH (27.0 - 31.0 PG) 27.4 MCHC (33.0 - 37.0 G/DL) 32.7 L RDW (11.5 - 14.5 %) 16.0 H Plt Count (130 - 400 /CUMM) 168 MPV (7.4 - 10.4 FL) 9.2 Gran % (42.2 - 75.2 %) 87.3 H Lymphocytes % (20.5 - 51.1 %) 9.1 L Monocytes % (1.7 - 9.3 %) 3.6 Eosinophils % (0 - 5 %) 0 Basophils % (0.0 - 2.0 %) 0 Absolute Granulocytes (1.4 - 6.5 /CUMM) 9.7 H Absolute Lymphocytes (1.2 - 3.4 /CUMM) 1.0 L Absolute Monocytes (0.10 - 0.60 /CUMM) 0.4 Absolute Eosinophils (0.0 - 0.7 /CUMM) 0 Absolute Basophils (0.0 - 0.2 /CUMM) 0 A/P: 57 y/o M with pmh sig for MS, quadriplegia, HFpEF, colonic pseudo- obstruction, neurogenic bladder s/p suprapubic catheter, admitted with abd pain , possible UTI, Constipation, with abd CT showing gaseous distention, chronic pseudoobstruction or ileus. Abdominal x-ray this morning shows continues to show gaseous distention especially in the cecum. Patient underwent right upper quadrant ultrasound results are pending. Appreciate infectious disease input and patient has been watched off of antibiotics. Patient has had multiple bowel movements charted in the computer. Abdominal x- ray consistent with continues gaseous distention. We have called surgical consult. Please replete potassium. Please check magnesium and replete if indicated. Continue the rest of the management. Patient is mostly bedbound and wheelchair- bound. Patient on Lovenox for DVT prophylaxis.
[2017-12-07 09:59] LABS: ABSOLUTE BASOPHIL COUNT 0 /CUMM (0.0-0.2); ABSOLUTE EOSINOPHIL COUNT 0 /CUMM (0.0-0.7); ABSOLUTE GRANULOCYTE CT 9.7 /CUMM (1.4-6.5); ABSOLUTE MONOCYTE COUNT 0.4 /CUMM (0.10-0.60); BASOPHIL % 0 % (0.0-2.0); EOSINOPHIL % 0 % (0-5); MEAN CORPUSCULAR HGB 27.4 PG (27.0-31.0); MEAN CORPUSCULAR HGB CONC 32.7 G/DL (33.0-37.0); MEAN CORPUSCULAR VOLUME 83.6 FL (80.0-94.0); MEAN PLATELET VOLUME 9.2 FL (7.4-10.4); PLATELET COUNT 168 /CUMM (130-400); RED BLOOD CELL CT 4.91 /CUMM (4.70-6.10); WHITE BLOOD CELL COUNT 11.1 /CUMM (4.8-10.8)
--- NOTE | 2017-12-07 11:02 | Discharge Summary ---
Visit Information Visit Dates Admission Date: 12/04/17 Discharge Date: 12/13/17 Hospital Course Course Attending Physician: Aggie Rubio MD Primary Care Physician: Dieudonne Levy MD Hospital Course: Mr Simpson is a 55 yo m with a PMH of MS, quadriplegia, HFpEF, colonic pseudo- obstruction, neurogenic bladder s/p suprapubic catheter who presents to the ED with abdominal pressure. He was admitted to the general medical floor for further evaluation and management #Leukocytosis - most likely 2/2 Prednisone use He was placed on a prednisone taper for his multiple sclerosis by his neurologist and it was suspected on admission to be the cause of his leukocytosis. Upon inspection a small skin breakdown was visible on his left foot and was initially thought to be the cause. His Urinalysis was positive for bacteria, esterase and nitrites. Urine cultures grew multiple colonies that was most likely a contaminant. Blood cultures were negative. He received 1 dose of IV Unasyn. ID was consulted and we decided to follow him off antibiotics. We monitored his white count which trended down to normal and his vitals remained stable #Chronic colonic Pseudo-obstruction with cecal dilation (23>>18 cm) s/p rectal tube to low wall suction General surgery and GI were consulted. Patient complained of abdominal pain and pressure during admission which we suspected to be due to his pseudoobstruction. Imaging revealed large amounts of gas and stool consistent with his symptoms. CT abd/pel showed asymptomatic Cholelithiasis without additional findings to suggest acute cholecystitis with prominent gaseous distention of the colon, most prominently affecting the sigmoid colon suggestive of chronic pseudoobstruction or ileus. He was placed on a bowel regimen for constipation. He was placed on baclofen which he had taken in the past for spasms but was subsequently discontinued due to the possibility of causing pseudo-obstruction and it was discussed with his neurologist-Dr. Preciado. He was seen by GI who suggested to place a rectal tube to low wall suction for his abdominal distention and bowel rest. His diet was eventually resumed and advanced as tolerated. We considered neostigmine but his symptoms continued to improve. Repeat imaging showed decreasing diameter in cecum diameter. As per Surgery patient was currently not a candidate for surgical intervention for the fact that he was able to move bowels, also due to surgical risks and no acute peritoneal signs warranting surgical intervention. #Chronic medical conditions His home meds were continued Allergies: Coded Allergies: No Known Allergies (12/04/17) Pertinent Lab Results: 12/04/17-6 EXAM TYPE: CAT - CT ABD & PELVIS W IV CONTRAST IMPRESSION: 1. Similar appearance to prior with prominent gaseous distention of the colon, most prominently affecting the sigmoid colon. This is suggestive of chronic pseudoobstruction or ileus. There is mild to moderate stool burden within the right hemicolon. The small bowel is normal in caliber. 2. Cholelithiasis without additional findings to suggest acute cholecystitis. 12/06/17 EXAM TYPE: RAD - XRY-PORTABLE ABDOMEN IMPRESSION: Incomplete evaluation, with only a portion of the right abdomen included in the [id number]. Markedly dilated bowel loops seen, likely representing markedly dilated large colon. This is incompletely imaged and evaluated. Recommend repeat abdominal radiographs to include the entire abdomen for further evaluation. 12/06/17 EXAM TYPE: RAD - [id number] VIEW IMPRESSION: Significant gaseous distention of large bowel consistent with history of pseudoobstruction. The bowel pattern is similar to prior studies. The cecum is more distended on this exam than previous exams. 12/07/17 EXAM TYPE: US - US-LIMITED ABDOMEN IMPRESSION: Essentially nondiagnostic study due to extensive gas-filled loops of bowel obscuring assessment. There are likely multiple calcified gallstones in the gallbladder. There is a small cortical cyst in the lower pole of the right kidney. 12/09/17 EXAM TYPE: RAD - XRY-KIDNEYS, URETERS, BLADDER IMPRESSION: Stable markedly dilated loops of large bowel. Suprapubic tube placement. 12/11/17- EXAM TYPE: RAD - XRY-KIDNEYS, URETERS, BLADDER IMPRESSION: 1. Marked gaseous distention of the entire colon and cecum measuring up to 18 cm in size, similar to prior exam. 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 2. No definite free air seen in the abdomen, though evaluation is limited on supine imaging. 12/11/17-899 EXAM TYPE: CARD - ECHOCARDIOGRAM CONCLUSIONS Normal size left ventricle. Moderate concentric left ventricular hypertrophy. Normal left ventricular ejection fraction visually estimated at > 55%. Abnormal relaxation filling pattern of the left ventricle for age (stage 1 diastolic dysfunction). Normal right ventricular size and function. Normal atrial size. Trace mitral regurgitation. Mild tricuspid regurgitation. No evidence of pulmonary hypertension. 12/12/17-06 EXAM TYPE: RAD - XRY-KIDNEYS, URETERS, BLADDER IMPRESSION: Increasing gaseous distention of the colon, with the cecum now measuring approximately 19.5 cm. Disposition Summary Disposition Principal Diagnosis: Chronic pseudo-obstruction Additional Diagnosis: Leukocytosis Discharge Disposition: home or self care Discharge Instructions General Discharge Information Code Status: Full Code Patient's Diet: Regular Patient's Activity: Limited Follow-Up Instructions/Appts: Avoid Baclofen due to the possibility of causing pseudo-obstruction Avoid antidiarrheal medications and excessive diary. Follow up the neurologist-Ilana within 1 week of discharge and continue your prednisone taper as directed Follow up with your PCP-Dr. Levy within 1-2 weeks of discharge Medications at Discharge Discharge Medications: Stop taking the following medications: Baclofen (Baclofen) 10 MG TABLET ORAL As Directed Continue taking these medications: Pantoprazole Sodium (Pantoprazole Sodium) 40 MG TABLET. 1 Tablet ORAL DAILY Comments: Last Taken: 12/13/17 Time: 0600 Cyanocobalamin (Vitamin B-12) (Vitamin B-12) 500 MCG TABLET 1 Tablet ORAL DAILY Comments: NOT GIVEN Cholecalciferol (Vitamin D3) (Vitamin D3) 2,000 UNIT TABLET 1 Tablet ORAL DAILY Comments: NOT GIVEN ZINC (ZINC) 50 MG TABLET 1 Tablet ORAL DAILY Comments: NOT GIVEN Spironolactone (Aldactone) 25 MG TABLET 1 Tablet ORAL DAILY Comments: Last Taken: 12/13/17 Time: 0800 Potassium Chloride (Klor-Con M20) 20 MEQ TAB.ER.PRT 1 Tablet ORAL TWICE DAILY Comments: NOT GIVEN Interferon Beta-1a/Albumin (Avonex Admin Pack 30 Mcg Vl) 30 MCG (1 ML) KIT 1 Milliliters INTRAMUSC EVERY MONDAY Comments: NOT GIVEN THIS ADMISSION Ibuprofen (Advil Liqui-Gels) 200 MG CAPSULE 2 Capsule ORAL Q4H as needed for PAIN Comments: NOT GIVEN THIS ADMISSION Carvedilol (Coreg) 12.5 MG TABLET 1 Tablet ORAL TWICE DAILY Comments: Last Taken: 12/13/17 Time: 0800 Prednisone (Prednisone) 20 MG TABLET 1 Tablet ORAL TWICE DAILY as needed for ms exacerbation Qty = 12 Instructions: CONTINUE UNTIL 12/16/17 AND START ONCE DAILY STARTING 12/17. FOLLOW UP WITH NEUROLOGY THEREAFTER Comments: Last Taken: 12/13/17 Time: 0800 Krill/Om-3/Dha/Epa/Phospho/Ast (Megared [place]-3 Krill Oil Sfgl) 300-90-24 CAPSULE 1 Capsule ORAL DAILY Comments: NOT GIVEN Cod Liver Oil (Cod Liver Oil) 1 EACH CAPSULE 1 Capsule ORAL DAILY Comments: NOT GIVEN Ascorbate Calcium/Bioflavonoid (Maryann-C 500 MG Tablet) 500 MG-200 MG TABLET 1 Tablet ORAL DAILY Comments: NOT GIVEN Bifidobacterium Infantis (Align) 4 MG (1 BILLION CELL) CAPSULE 1 Capsule ORAL DAILY Comments: NOT GIVEN Nystatin (Nystatin) 100,000 UNIT/GRAM CREAM..G. 1 Application On the skin As Directed as needed for SKIN Instructions: apply to affected area(s) Comments: Last Taken: 12/13/17 Time: 0800 Nitrofurantoin Macrocrystal (Nitrofurantoin) 100 MG CAPSULE 1 Capsule ORAL Q12H Comments: NOT GIVEN Vits A and D/White Pet/Lanolin (A and D Ointment) 42.5 GM OINT...G. 1 Application On the skin As Directed as needed for SKIN Comments: NOT GIVEN Start taking the following new medications: Polyethylene Glycol 3350 (Miralax) 17 GRAM/DOSE POWDER 17 Gram ORAL DAILY as needed for CONSTIPATION Qty = 7 No Refills Comments: Last Taken: 12/13/17 Time: 0800 Sennosides/Docusate Sodium (Senna-Time S Tablet) 8.6 MG-50 MG TABLET 187 Milligram ORAL AT BEDTIME as needed for CONSTIPATION Qty = 7 No Refills Comments: Last Taken: 12/12/17 Time: 2199 Copies To: Trevor Trejo MD; Andrea Nichols MD; Dieudonne Levy MD Time: 0 Copies To: Trevor Trejo MD; Andrea Nichols MD; Dieudonne Levy MD
[2017-12-07 11:04] LABS: GRANULOCYTE % 87.3 % (42.2-75.2)
--- NOTE | 2017-12-07 11:47 | ULTRASOUND REPORT ---
EXAMINATION: US ABDOMEN LIMITED CLINICAL INFORMATION: Abdominal pressure, distention, leukocytosis. Rule out acute pathology. COMPARISON: CT scan of the abdomen and pelvis dated 12/04/2017. TECHNIQUE: Real-time imaging of the right upper quadrant abdominal viscera. FINDINGS: Evaluation is largely nondiagnostic due to extensive gas-filled loops of bowel obscuring assessment. PANCREAS: Not visualized. LIVER: Portions of the liver are visualized and appear heterogeneous in echotexture. No definite focal lesion or intrahepatic biliary duct dilatation. GALLBLADDER: The gallbladder is contracted and there appears to be a wall echo shadow sign suggesting a gallbladder filled with multiple calcified gallstones. No gallbladder wall thickening or sonographic Tom sign is elicited. COMMON BILE DUCT: Normal in caliber measuring 0.4 cm in diameter. RIGHT KIDNEY: Normal. No hydronephrosis. No renal calculi or suspicious focal parenchymal lesions. There is a 1.2 x 0.8 x 0.9 cm cortical cyst in the lower pole of the right kidney. The kidney measures 12.4 cm in maximum dimension. FREE FLUID: None. IMPRESSION: Essentially nondiagnostic study due to extensive gas-filled loops of bowel obscuring assessment. There are likely multiple calcified gallstones in the gallbladder. There is a small cortical cyst in the lower pole of the right kidney.
[2017-12-07 13:55] VITALS: BP 124/62
--- NOTE | 2017-12-07 16:03 | PN- Infect Dx ---
Subjective Subjective: Afebrile on steroids. He notes increased abdominal distention today. He did have 6 stools yesterday and 3 overnight. Objective Last 24 Hrs of Vital Signs/I&O Vital Signs Date Time Temp Pulse Resp B/P B/P Pulse O2 O2 Flow FiO2 Mean Ox Delivery Rate 12/07 1355 97.6 72 18 124/62 98 Room Air 12/07 0923 72 112/64 12/07 0548 97.6 64 20 108/64 96 Room Air 12/06 2150 98.0 78 20 90/60 96 Room Air 12/06 2127 78 90/60 Intake & Output 12/07 1600 12/07 0800 12/07 0000 Intake Total 720 Output Total 500 350 650 Balance -500 -350 70 Intake, Oral 720 Number 1 2 3 Bowel Movements Output, Urine 500 350 650 Patient 188 lb Weight Physical Exam Other Physical Findings: He appears comfortable in no acute distress Lungs are clear Abdomen is distended, nontender with positive bowel sounds; suprapubic catheter in place Extremities left foot with decreased edema and no further erythema Results Last 24 Hours of Lab Results: Laboratory Tests 12/07 0845 Chemistry Sodium (137 - 145 mmol/L) 140 Potassium (3.5 - 5.1 mmol/L) 3.6 Chloride (98 - 107 mmol/L) 106 Carbon Dioxide (22 - 30 mmol/L) 24 Anion Gap (5 - 16) 11 BUN (9 - 20 mg/dL) 15 Creatinine (0.7 - 1.2 mg/dL) 0.3 L Estimated GFR (>60 ml/min) > 60 BUN/Creatinine Ratio (7 - 25 %) 50.0 H Hematology CBC w Diff NO MAN DIFF REQ WBC (4.8 - 10.8 /CUMM) 11.1 H RBC (4.70 - 6.10 /CUMM) 4.91 Hgb (14.0 - 18.0 G/DL) 13.4 L Hct (42 - 52 %) 41.0 L MCV (80.0 - 94.0 FL) 83.6 MCH (27.0 - 31.0 PG) 27.4 MCHC (33.0 - 37.0 G/DL) 32.7 L RDW (11.5 - 14.5 %) 16.0 H Plt Count (130 - 400 /CUMM) 168 MPV (7.4 - 10.4 FL) 9.2 Gran % (42.2 - 75.2 %) 87.3 H Lymphocytes % (20.5 - 51.1 %) 9.1 L Monocytes % (1.7 - 9.3 %) 3.6 Eosinophils % (0 - 5 %) 0 Basophils % (0.0 - 2.0 %) 0 Absolute Granulocytes (1.4 - 6.5 /CUMM) 9.7 H Absolute Lymphocytes (1.2 - 3.4 /CUMM) 1.0 L Absolute Monocytes (0.10 - 0.60 /CUMM) 0.4 Absolute Eosinophils (0.0 - 0.7 /CUMM) 0 Absolute Basophils (0.0 - 0.2 /CUMM) 0 Last 24 Hours of [place] Results: Blood cultures 2 December 04 negative Recent Imaging Studies: Right upper quadrant ultrasound December 07 reveals multiple calcified gallstones in the gallbladder with no gallbladder wall thickening or Tom sign Abdominal x-ray December 06 reveals significant gaseous distention of the large bowel consistent with his history of pseudoobstruction Assessment/Plan ID Impression: Stable, with temperatures remaining normal and white blood cell count decreasing , despite steroids, which are being continued for his multiple sclerosis. The inflammation over the dorsum of his left foot noted yesterday has nearly resolved, making cellulitis unlikely. Podiatry input noted and appreciated. His abdominal distention persists, presumably secondary to his recurrent pseudoobstruction, and, if it persists, may warrant further evaluation. Suggestion: 1. Consider GI evaluation for his recurrent pseudoobstruction 2. Steroid taper per his usual schedule 3. Continue to follow off antibiotics
--- NOTE | 2017-12-07 17:08 | Cons- Gastroenterology ---
General Information and HPI Consulting Request Date of Consult: 12/07/17 Requested By: Aggie Rubio MD Reason for Consult: Abdominal distention; history of pseudo-obstruction. Source of Information: patient, old records Exam Limitations: no limitations History of Present Illness: Mr. Simpson is a 57 year old male with multiple medical problems including MS for which he gets prednisone every few months and colonic pseudoobstruction who was admitted to on 12/04/17 with complaints of abdominal distention and cramps. He notes that he had been having symptoms for the previous few days before he presented to the hospital, but they became more severe that day. He denies any vomiting or any fevers at home. He has apparently been having bowel movements, but he was not able to tell me when his last BM was before his hospitalization. In the ER he was noted to have a slight bandemia so he was given one dose of unasyn, but this wasn't continued. Since admisstion he has been placed on a bowel regimen with regular miralax and senna and per nursing he has been having bowel movements without any blood, but he has continued to have intermittent cramping and significant abdominal distention for which repeat imaging has been obtained which continued to show persistently dilated bowel. He has been afebrile since admission and has not had any vomiting. While he does still feel he is distended he notes it is slightly improved from earlier in the day. Allergies/Medications Allergies: Coded Allergies: No Known Allergies (12/04/17) Home Med List: Ascorbate Calcium/Bioflavonoid (Maryann-C 500 MG Tablet) 500 MG-200 MG TABLET 1 TAB PO DAILY SUPPLEMENT (Reported) Baclofen 10 MG TABLET 1 TAB PO AD MUSCLE SPASMS (Reported) Bifidobacterium Infantis (Align) 4 MG (1 BILLION CELL) CAPSULE 1 CAP PO DAILY GI (Reported) Carvedilol (Coreg) 12.5 MG TABLET 1 TAB PO BID HEART (Reported) Cholecalciferol (Vitamin D3) (Vitamin D3) 2,000 UNIT TABLET 1 TAB PO DAILY VITAMIN SUPPORT (Reported) Cod Liver Oil 1 EACH CAPSULE 1 CAP PO DAILY SUPPLEMENT (Reported) Cyanocobalamin (Vitamin B-12) (Vitamin B-12) 500 MCG TABLET 1 TAB PO DAILY VITAMIN SUPPORT (Reported) Ibuprofen (Advil Liqui-Gels) 200 MG CAPSULE 2 CAP PO Q4H PRN PAIN (Reported) Interferon Beta-1a/Albumin (Avonex Admin Pack 30 Mcg Vl) 30 MCG (1 ML) KIT 1 ML IM QWED MS (Reported) Krill/Om-3/Dha/Epa/Phospho/Ast (Megared [place]-3 Krill Oil Sfgl) 300-90-24 CAPSULE 1 CAP PO DAILY SUPPLEMENT (Reported) Nitrofurantoin Macrocrystal (Nitrofurantoin) 100 MG CAPSULE 1 CAP PO Q12H (Reported) Nystatin 100,000 UNIT/GRAM CREAM..G. 1 CATRACHO TOP AD PRN SKIN (Reported) apply to affected area(s) Pantoprazole Sodium 40 MG TABLET.DR 1 TAB PO DAILY ACID REFLUX (Reported) Polyethylene Glycol 3350 (Miralax) 17 GRAM/DOSE POWDER 17 GM PO DAILY CONSTIPATION Potassium Chloride (Klor-Con M20) 20 MEQ TAB.ER.PRT 1 TAB PO BID SUPPLEMENT ( Reported) Prednisone 20 MG TABLET 1 TAB PO Q8 PRN ms exacerbation (Reported) Sennosides/Docusate Sodium (Senna-Time S Tablet) 8.6 MG-50 MG TABLET 187 MG PO AT BEDTIME CONSTIPATION/GAS Spironolactone (Aldactone) 25 MG TABLET 1 TAB PO DAILY WATER RETENTION ( Reported) Vits A and D/White Pet/Lanolin (A and D Ointment) 42.5 GM OINT...G. 1 CATRACHO TOP AD PRN SKIN (Reported) ZINC 50 MG TABLET 1 TAB PO DAILY SUPPLEMENT (Reported) Current Medications: Current Medications Sig/Danitza Start time Last Medication Dose Route Stop Time Status Admin Bisacodyl 5 MG DAILY 12/05 0900 AC 12/07 PO 0922 Carvedilol 12.5 MG BID 12/04 2100 AC 12/07 PO 0923 Dextrose/Sodium 1,000 ML ONCE ONE 12/07 0930 CAN Chloride IV 12/08 0529 Enoxaparin Sodium 40 MG DAILY 12/04 1742 AC 12/07 SC 0923 Neomycin/Polymyxin/ 1 CATRACHO DAILY 12/06 1742 AC 12/07 Bacitracin EXT 0923 Nystatin 1 CATRACHO BID 12/06 1251 AC 12/07 TOP 0923 Omeprazole 40 MG DAILY AC 12/05 0700 AC 12/07 PO 0534 Polyethylene Glycol 17 GM DAILY 12/06 1155 AC 12/07 PO 0922 Prednisone 20 MG Q8 12/06 0945 AC 12/07 PO 1445 Senna 187 MG AT BEDTIME 12/04 2100 12/06 PO 2126 Spironolactone 25 MG DAILY 12/05 09 12/07 PO 09 Past History Travel History Traveled to [place] past 21 day No Medical History Blood Transfusion Hx: No Neurological: multiple sclerosis EENT: NONE Cardiovascular: cardiomyopathy, hypertension, CONGESTIVE HEART FAILURE HPL CARDIOMYOPATHY Respiratory: NONE Gastrointestinal: PSEUDOOBSTRUCTION Hepatic: NONE Renal: SUPRAPUBIC TUBE-FREQUENT OBSTRUCTION. recurrent urinary tract infections Musculoskeletal: NONE Psychiatric: NONE Endocrine: NONE Blood Disorders: NONE Cancer(s): NONE PROFESSIONAL ADVISOR/Reproductive: N/A Surgical History Surgical History: SUPRAPUBIC CATHETER TONSILS Family History Relations & Conditions If Any: Relation not specified for: *No pertinent family history Psychosocial History Where Do You Live? Home Who Do You Live With? parent Services at Home: Home Health Aide, Nursing Smoking Status: Former Smoker ETOH Use: denies use Illicit Drug Use: denies illicit drug use Functional Ability ADLs Needs Assist: dressing, eating, toileting, bathing. Ambulation: non-ambulatory IADLs Needs Assist: shopping, housework, finances, food prep, telephone, transportation, medication admin. Review of Systems Review of Systems Constitutional: Reports: malaise, weakness. Denies: chills, diaphoresis, fever. EENTM: Denies: no symptoms. Cardiovascular: Denies: no symptoms. Respiratory: Denies: no symptoms. GI: Reports: see HPI. Genitourinary: Denies: no symptoms. Musculoskeletal: Denies: no symptoms. Skin: Denies: no symptoms. Neurological/Psychological: Reports: paresthesia, weakness. Hematologic/Endocrine: Denies: no symptoms. Immunologic/Allergic: Denies: no symptoms. All Other Systems: Reviewed and Negative Exam & Diagnostic Data Vital Signs and I&O Vital Signs Date Time Temp Pulse Resp B/P B/P Pulse O2 O2 Flow FiO2 Mean Ox Delivery Rate 12/07 1355 97.6 72 18 124/62 98 Room Air 12/07 0923 72 112/64 12/07 0548 97.6 64 20 108/64 96 Room Air 12/06 2150 98.0 78 20 90/60 96 Room Air 12/067 78 90/60 Intake & Output 12/07 1600 12/07 0400 12/06 1600 12/06 0400 12/05 1600 12/05 0400 Intake Total 683 112 0462 472 911 0178 Output Total 496 353 4080 360 625 650 Balance -130 70 -560 340 355 450 Intake, IV 10 20 1100 Intake, Oral 104 125 1810 700 960 Number 4 3 3 1 Bowel Movements Output, Urine 375 034 3835 360 625 650 Patient 188 lb 182 lb 181 lb 181 lb Weight Weight Bed scale Measurement Method Physical Exam General Appearance: well developed/nourished, no apparent distress, alert, comfortable Head: atraumatic, normal appearance Eyes: Bilateral: normal appearance. Ears, Nose, Throat: normal pharynx Neck: normal inspection, supple, full range of motion Respiratory: normal breath sounds, no respiratory distress Cardiovascular: regular rate/rhythm Gastrointestinal: normal bowel sounds, soft, non-tender, distention Rectal: deferred Extremities: contracted Neurologic/Psych: no motor/sensory deficits, awake, alert, oriented x 3 Skin: intact, normal color Results Pertinent Lab Results: Laboratory Tests 12/07 12/06 0845 0715 Chemistry Sodium (137 - 145 mmol/L) 140 137 Potassium (3.5 - 5.1 mmol/L) 3.6 3.4 L Chloride (98 - 107 mmol/L) 106 104 Carbon Dioxide (22 - 30 mmol/L) 24 24 Anion Gap (5 - 16) 11 9 BUN (9 - 20 mg/dL) 15 15 Creatinine (0.7 - 1.2 mg/dL) 0.3 L 0.3 L Estimated GFR (>60 ml/min) > 60 > 60 BUN/Creatinine Ratio (7 - 25 %) 50.0 H 50.0 H Hematology CBC w Diff NO MAN DIFF REQ NO MAN DIFF REQ WBC (4.8 - 10.8 /CUMM) 11.1 H 13.5 H RBC (4.70 - 6.10 /CUMM) 4.91 4.94 Hgb (14.0 - 18.0 G/DL) 13.4 L 13.6 L Hct (42 - 52 %) 41.0 L 41.2 L MCV (80.0 - 94.0 FL) 83.6 83.4 MCH (27.0 - 31.0 PG) 27.4 27.5 MCHC (33.0 - 37.0 G/DL) 32.7 L 33.0 RDW (11.5 - 14.5 %) 16.0 H 15.7 H Plt Count (130 - 400 /CUMM) 168 181 MPV (7.4 - 10.4 FL) 9.2 9.2 Gran % (42.2 - 75.2 %) 87.3 H 91.1 H Lymphocytes % (20.5 - 51.1 %) 9.1 L 6.5 L Monocytes % (1.7 - 9.3 %) 3.6 2.4 Eosinophils % (0 - 5 %) 0 0 Basophils % (0.0 - 2.0 %) 0 0 Absolute Granulocytes (1.4 - 6.5 /CUMM) 9.7 H 12.3 H Absolute Lymphocytes (1.2 - 3.4 /CUMM) 1.0 L 0.9 L Absolute Monocytes (0.10 - 0.60 /CUMM) 0.4 0.3 Absolute Eosinophils (0.0 - 0.7 /CUMM) 0 0 Absolute Basophils (0.0 - 0.2 /CUMM) 0 0 12/05 0845 Hematology CBC w Diff NO MAN DIFF REQ WBC (4.8 - 10.8 /CUMM) 14.1 H RBC (4.70 - 6.10 /CUMM) 5.04 Hgb (14.0 - 18.0 G/DL) 13.9 L Hct (42 - 52 %) 42.0 MCV (80.0 - 94.0 FL) 83.4 MCH (27.0 - 31.0 PG) 27.5 MCHC (33.0 - 37.0 G/DL) 33.0 RDW (11.5 - 14.5 %) 15.4 H Plt Count (130 - 400 /CUMM) 205 MPV (7.4 - 10.4 FL) 8.9 Gran % (42.2 - 75.2 %) 82.7 H Lymphocytes % (20.5 - 51.1 %) 10.2 L Monocytes % (1.7 - 9.3 %) 7.0 Eosinophils % (0 - 5 %) 0.1 Basophils % (0.0 - 2.0 %) 0 Absolute Granulocytes (1.4 - 6.5 /CUMM) 11.7 H Absolute Lymphocytes (1.2 - 3.4 /CUMM) 1.4 Absolute Monocytes (0.10 - 0.60 /CUMM) 1.0 H Absolute Eosinophils (0.0 - 0.7 /CUMM) 0 Absolute Basophils (0.0 - 0.2 /CUMM) 0 Imaging/Other Studies: SERVICE DATE: 12/04/17 EXAM TYPE: CAT - CT ABD & PELVIS W IV CONTRAST EXAMINATION: CT ABDOMEN AND PELVIS WITH CONTRAST CLINICAL INFORMATION: Right upper quadrant pain. COMPARISON: 03/30/2016 TECHNIQUE: Multidetector volumetric imaging was performed of the abdomen and pelvis following IV administration of 95 mL of Optiray 320 intravenous contrast. Sagittal and coronal reformatted images were obtained on the technologist's workstation. DLP: 974 mGy-cm FINDINGS: LUNG BASES: There is bibasilar subsegmental atelectasis. Elevation of the right hemidiaphragm. The visualized cardiac structures are unremarkable. LIVER, GALLBLADDER, AND BILIARY TREE: The liver is normal in size, shape, and attenuation. No focal hepatic lesion or biliary ductal dilatation is present. The gallbladder appears contracted. The gallbladder is stone filled. No gallbladder wall thickening or pericholecystic fluid. PANCREAS: Unremarkable. SPLEEN: Unremarkable. ADRENAL GLANDS: Unremarkable. KIDNEYS AND URETERS: The kidneys are normal in size, shape, and attenuation. No hydronephrosis, hydroureter, or calculi seen. No perinephric stranding. Multiple hypoattenuating lesions again seen in both kidneys which are unchanged from prior. BLADDER: Decompressed with a suprapubic catheter in place. GASTROINTESTINAL TRACT: There is similar appearance to the previous study. Again noted is marked distention of the colon with gas. This is particularly evident involving the sigmoid colon. Mild to moderate amount of stool in the ascending and transverse colon. Small amount of stool at the rectum. No pneumatosis. The small bowel is normal in caliber, without obstruction. No free air or free fluid. Partially visualized normal appendix. ABDOMINAL WALL: No significant hernia. Diffuse abdominal wall laxity. Diffuse fatty atrophy of the gluteal musculature. LYMPH NODES: Normal. VASCULAR: Normal caliber aorta. Mild atherosclerotic calcification. PELVIC VISCERA: Unremarkable. OSSEOUS STRUCTURES: No acute or suspicious osseous abnormality. Mild degenerative changes throughout the spine. Moderate degenerative changes of both hips. IMPRESSION: 1. Similar appearance to prior with prominent gaseous distention of the colon, most prominently affecting the sigmoid colon. This is suggestive of chronic pseudoobstruction or ileus. There is mild to moderate stool burden within the right hemicolon. The small bowel is normal in caliber. 2. Cholelithiasis without additional findings to suggest acute cholecystitis. SERVICE DATE: 12/06/17162 EXAM TYPE: RAD - [id number] VIEW EXAMINATION: XR ABDOMEN CLINICAL INDICATION: History of pseudoobstruction.. Abdominal distention. Gas pressure. COMPARISON: Numerous prior studies. Most recent abdomen radiograph performed earlier today, 1:[address] scan abdomen pelvis 12/04/2017. TECHNIQUE: AP view of the abdomen. FINDINGS: The significant gaseous distention of the large bowel consistent with history of pseudoobstruction is again demonstrated. The cecum is distended to a diameter of about 23 cm. The cecum is distended to a diameter of about 18 cm on the exam of 04/02/2016. Cecum measures about 16.[address] abdomen pelvis of 12/04/2017. There is gaseous distention of the stomach as well. The small bowel loops are decompressed. The bowel pattern is unchanged since prior study. There is a moderate volume of stool in the right colon. No free air. IMPRESSION: Significant gaseous distention of large bowel consistent with history of pseudoobstruction. The bowel pattern is similar to prior studies. The cecum is more distended on this exam than previous exams. SERVICE DATE: 12/07/1706 EXAM TYPE: US - US-LIMITED ABDOMEN EXAMINATION: US ABDOMEN LIMITED CLINICAL INFORMATION: Abdominal pressure, distention, leukocytosis. Rule out acute pathology. COMPARISON: CT scan of the abdomen and pelvis dated 12/04/2017. TECHNIQUE: Real-time imaging of the right upper quadrant abdominal viscera. FINDINGS: Evaluation is largely nondiagnostic due to extensive gas-filled loops of bowel obscuring assessment. PANCREAS: Not visualized. LIVER: Portions of the liver are visualized and appear heterogeneous in echotexture. No definite focal lesion or intrahepatic biliary duct dilatation. GALLBLADDER: The gallbladder is contracted and there appears to be a wall echo shadow sign suggesting a gallbladder filled with multiple calcified gallstones. No gallbladder wall thickening or sonographic Tom sign is elicited. COMMON BILE DUCT: Normal in caliber measuring 0.4 cm in diameter. RIGHT KIDNEY: Normal. No hydronephrosis. No renal calculi or suspicious focal parenchymal lesions. There is a 1.2 x 0.8 x 0.9 cm cortical cyst in the lower pole of the right kidney. The kidney measures 12.4 cm in maximum dimension. FREE FLUID: None. IMPRESSION: Essentially nondiagnostic study due to extensive gas-filled loops of bowel obscuring assessment. There are likely multiple calcified gallstones in the gallbladder. There is a small cortical cyst in the lower pole of the right kidney. Assessment/Plan Assessment/Recommendations: Assessment: Mr. Simpson is a 57-year-old male with a history of multiple sclerosis and pseudoobstruction who presents with increasing abdominal distention, pressure and cramping likely secondary to an exacerbation of his pseudoobstruction. I am not certain what led to the exacerbation as he doesn't appear to have an infection and hasn't had any signficant changes in his medications lately that could cause this (prednisone shouldn't affect his bowels like this). His TSH should be checked and stool should also be checked for c diff. His anticholinergic medications should also be held (ie. baclofen). While his colon is markedly dilated on imaging it is quite likely that at least some of the distention is chronic as the cecum in general is at increased risk to perforate when it reaches about 12 cm and as his is now 23 cm with a relatively benign physical exam I feel acute surgical intervention is unlikely to be necessary. As his exam is relatively benign I would recommend a conservative/non-invasive approach, but if the distention persists and/or his physical exam changes would then consider neostigmine if their are no cardiac contraindications or a colonoscopy for decompression. Recommendations: 1. Keep NPO for now 2. Place a rectal tube to low wall suction 3. Check a TSH and a stool for c diff 4. He should be encouraged to move around in bed going from laying on his back to the left and right lateral decubitus position every 30-60 minutes 5. Follow daily KUB 6. Follow up surgery recommendations 7. Follow lytes and replete as needed. 8. Serial abdominal exams 9. Avoid anticholinergic medications. 9. If distention persists in spite of conservative interventions will then give consideration for transferring him to telemetry to give neostigmine if their are no cardiac contraindications or if there are would then consider a colonoscopic decompression. I will continue to follow this patient and make further recommendations based on his clinical course and results of repeat imaging. Problem List: 1. ABDOMINAL DISTENSION 2. Colonic pseudoobstruction Copies To: Cam ZAMORA,Dieudonne Davidson. Consult Acknowledgment - Thank you for your consult request.
--- NOTE | 2017-12-07 20:13 | Cons- General Surgery ---
General Information and HPI Consulting Request Date of Consult: 12/07/17 Requested By: Aggie Rubio MD History of Present Illness: CC: called for pseudo obstruction HPI: Known by sur57 year old nonsmoker nondiabetic quadriplegic MS bedbound long history of Sharonda's, freq UTI's. 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 Meds include Spironolactone, Prednisone baclofen, INF beta. Most of the history is gotten from [facility] computer chart. Admitted to Med , had come to ER c 3 days of worsening abd distension, burping and abd pain radiating to R shoulder, denies sweats, diarrhea, nausea fevers vomiting and changes in bowel habits weight or appetite, his hyperlipidemia GERD and MS have been stable and medications. Denies rec probs with urinary catheter. Throughout he's been tolerating diet and having BMs, had one while in ER. Today denies the abdominal pain. Allergies/Medications Allergies: Coded Allergies: No Known Allergies (12/04/17) Home Med List: Ascorbate Calcium/Bioflavonoid (Maryann-C 500 MG Tablet) 500 MG-200 MG TABLET 1 TAB PO DAILY SUPPLEMENT (Reported) Baclofen 10 MG TABLET 1 TAB PO AD MUSCLE SPASMS (Reported) Bifidobacterium Infantis (Align) 4 MG (1 BILLION CELL) CAPSULE 1 CAP PO DAILY GI (Reported) Carvedilol (Coreg) 12.5 MG TABLET 1 TAB PO BID HEART (Reported) Cholecalciferol (Vitamin D3) (Vitamin D3) 2,000 UNIT TABLET 1 TAB PO DAILY VITAMIN SUPPORT (Reported) Cod Liver Oil 1 EACH CAPSULE 1 CAP PO DAILY SUPPLEMENT (Reported) Cyanocobalamin (Vitamin B-12) (Vitamin B-12) 500 MCG TABLET 1 TAB PO DAILY VITAMIN SUPPORT (Reported) Ibuprofen (Advil Liqui-Gels) 200 MG CAPSULE 2 CAP PO Q4H PRN PAIN (Reported) Interferon Beta-1a/Albumin (Avonex Admin Pack 30 Mcg Vl) 30 MCG (1 ML) KIT 1 ML IM QWED MS (Reported) Krill/Om-3/Dha/Epa/Phospho/Ast (Megared Pierson-3 Krill Oil Sfgl) 300-90-24 CAPSULE 1 CAP PO DAILY SUPPLEMENT (Reported) Nitrofurantoin Macrocrystal (Nitrofurantoin) 100 MG CAPSULE 1 CAP PO Q12H (Reported) Nystatin 100,000 UNIT/GRAM CREAM..G. 1 CATRACHO TOP AD PRN SKIN (Reported) apply to affected area(s) Pantoprazole Sodium 40 MG TABLET.DR 1 TAB PO DAILY ACID REFLUX (Reported) Polyethylene Glycol 3350 (Miralax) 17 GRAM/DOSE POWDER 17 GM PO DAILY PRN CONSTIPATION Potassium Chloride (Klor-Con M20) 20 MEQ TAB.ER.PRT 1 TAB PO BID SUPPLEMENT ( Reported) Prednisone 20 MG TABLET 1 TAB PO Q8 PRN ms exacerbation (Reported) Sennosides/Docusate Sodium (Senna-Time S Tablet) 8.6 MG-50 MG TABLET 187 MG PO AT BEDTIME PRN CONSTIPATION Spironolactone (Aldactone) 25 MG TABLET 1 TAB PO DAILY WATER RETENTION ( Reported) Vits A and D/White Pet/Lanolin (A and D Ointment) 42.5 GM OINT...G. 1 CATRACHO TOP AD PRN SKIN (Reported) ZINC 50 MG TABLET 1 TAB PO DAILY SUPPLEMENT (Reported) Past History Medical History Blood Transfusion Hx: No Neurological: multiple sclerosis EENT: NONE Cardiovascular: cardiomyopathy, hypertension, CONGESTIVE HEART FAILURE HPL CARDIOMYOPATHY Respiratory: NONE Gastrointestinal: PSEUDOOBSTRUCTION Hepatic: NONE Renal: SUPRAPUBIC TUBE-FREQUENT OBSTRUCTION. 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 Home Who Do You Live With? parent Services at Home: Home Health Aide, Nursing Smoking Status: Former Smoker ETOH Use: denies use Illicit Drug Use: denies illicit drug use Functional Ability ADLs Needs Assist: dressing, eating, toileting, bathing. Ambulation: non-ambulatory IADLs Needs Assist: shopping, housework, finances, food prep, telephone, transportation, medication admin. Employment History Retired? yes Review of Systems Review of Systems: as above Exam & Diagnostic Data Vital Signs and I&O I reviewed Vital Signs Date Time Temp Pulse Resp B/P B/P Pulse O2 O2 Flow FiO2 Mean Ox Delivery Rate 12/07 1355 97.6 72 18 124/62 98 Room Air 12/07 0923 72 112/64 12/07 0548 97.6 64 20 108/64 96 Room Air 12/06 2150 98.0 78 20 90/60 96 Room Air 12/06 2127 78 90/60 I reviewed Intake & Output 12/07 1600 12/07 0800 12/07 0000 12/06 1600 12/06 0812/06 0000 Intake Total 720 720 600 490 700 Output Total 500 350 218 870 8588 360 Balance 220 -350 70 200 -760 340 Intake, IV 10 Intake, Oral 720 720 600 480 700 Number 2 2 3 1 2 Bowel Movements Output, Urine 500 350 427 176 1795 360 Patient 188 lb 182 lb Weight Physical Exam: Constitutional: pleasant, no acute distress, conversant Eyes: sclera anicteric ENMT: ears and nose atraumatic, moist mucous membranes, good dentition, no lip lesions Neck: Supple, trachea is midline, no cervical or supraclavicular adenopathy and no palpable thyromegaly Cardiovascular: S1, S2, no murmurs, no peripheral edema Respiratory: clear to auscultation with normal respiratory effort and no intercostal retractions GI: abdomen soft, nontender, distended, hepatosplenomegaly not appreciable because of the distention Extremities / lymphatics: symmetrically warm, free range of motion no peripheral edema, no cervical, supraclavicular, axillary, or inguinal adenopathy Musculoskeletal: gait and station- N/A, no digital cyanosis, muscle strength not eval, there is increased tone and atrophy, motor N/A Skin: no jaundice, no rashes warm, nondiaphoretic, no areas of erythema or induration Psychiatric: mood and affect are appropriate and alert and oriented to person place and time Last 24 Hours of Labs: I reviewed Laboratory Tests 12/07 0845 Chemistry Sodium (137 - 145 mmol/L) 140 Potassium (3.5 - 5.1 mmol/L) 3.6 Chloride (98 - 107 mmol/L) 106 Carbon Dioxide (22 - 30 mmol/L) 24 Anion Gap (5 - 16) 11 BUN (9 - 20 mg/dL) 15 Creatinine (0.7 - 1.2 mg/dL) 0.3 L Estimated GFR (>60 ml/min) > 60 BUN/Creatinine Ratio (7 - 25 %) 50.0 H Hematology CBC w Diff NO MAN DIFF REQ WBC (4.8 - 10.8 /CUMM) 11.1 H RBC (4.70 - 6.10 /CUMM) 4.91 Hgb (14.0 - 18.0 G/DL) 13.4 L Hct (42 - 52 %) 41.0 L MCV (80.0 - 94.0 FL) 83.6 MCH (27.0 - 31.0 PG) 27.4 MCHC (33.0 - 37.0 G/DL) 32.7 L RDW (11.5 - 14.5 %) 16.0 H Plt Count (130 - 400 /CUMM) 168 MPV (7.4 - 10.4 FL) 9.2 Gran % (42.2 - 75.2 %) 87.3 H Lymphocytes % (20.5 - 51.1 %) 9.1 L Monocytes % (1.7 - 9.3 %) 3.6 Eosinophils % (0 - 5 %) 0 Basophils % (0.0 - 2.0 %) 0 Absolute Granulocytes (1.4 - 6.5 /CUMM) 9.7 H Absolute Lymphocytes (1.2 - 3.4 /CUMM) 1.0 L Absolute Monocytes (0.10 - 0.60 /CUMM) 0.4 Absolute Eosinophils (0.0 - 0.7 /CUMM) 0 Absolute Basophils (0.0 - 0.2 /CUMM) 0 Assessment/Plan Assessment/Plan 12-29-15 [id number], [id number] Studies: I rev on PACS myself CT abd from 14, compared to 12-28-15, degree of colonic distention is very similar Labs: BUN sig elevated for him on admission. WBC initially 20, today 11, K normal but on Na was 133. Impression prob rel to electrolyte abns, chronicity, inanition, multiple medical issues affecting bowel function, meds, dehydration, possibly UTI: worsening distention history of Sharonda's. This has been a chronic problem, this exacerbation was gradual too. There are no peritoneal signs because it's a chronic not acute dilation, perforation is risky but needs to be monitored, consider GI evaluation for decompression. Otherwise, but no surgical intervention is indicated at this time would also optimize the electrolytes. . Problem List: 1. [place]'s Syndrome 2. Multiple sclerosis Problem List: 1. ABDOMINAL DISTENSION 2. Multiple sclerosis 3. Leukocytosis 4. Colonic pseudoobstruction 5. Dehydration 6. [place]'s syndrome Consult Acknowledgment - Thank you for your consult request.
[2017-12-07 21:32] VITALS: BP 110/70
[2017-12-08 05:47] VITALS: BP 118/64
--- NOTE | 2017-12-08 08:20 | PN- Housestaff ---
Nico Shrestha 12/08/17 0820: Subjective Follow-up For: Abdominal pain Pseudo-obstruction Subjective: Patient offers no complaints, reports he is passing stools. Denies nausea, vomiting, abdominal pain Review of Systems Constitutional: Reports: see HPI. Objective Last 24 Hrs of Vital Signs/I&O Vital Signs Date Time Temp Pulse Resp B/P B/P Pulse O2 O2 Flow FiO2 Mean Ox Delivery Rate 12/08 0823 73 118/64 12/08 0547 98.0 73 22 118/64 97 Room Air 12/07 2132 98.0 82 110/70 97 Room Air 12/07 2119 110/70 Intake & Output 12/08 1600 12/08 0800 12/08 0000 Intake Total 120 120 Output Total 700 Balance -580 120 Intake, Oral 120 120 Number 2 Bowel Movements Output, Urine 700 Patient 191 lb Weight Physical Exam General Appearance: Alert, Oriented X3, Cooperative Cardiovascular: Regular Rate, Normal S1, Normal S2 Lungs: Clear to Auscultation, Normal Air Movement Abdomen: Abdomen distended Current Medications: Current Medications Sig/Danitza Start time Last Medication Dose Route Stop Time Status Admin Bisacodyl 5 MG DAILY 12/05 0900 AC 12/08 PO 0823 Carvedilol 12.5 MG BID 12/04 2100 AC 12/08 PO 0823 Enoxaparin Sodium 40 MG DAILY 12/04 1742 AC 12/08 SC 0822 Magnesium Oxide 400 MG BID 12/08 1058 AC 12/08 PO 12/08 2101 1307 Neomycin/Polymyxin/ 1 CATRACHO DAILY 12/06 1742 AC 12/08 Bacitracin EXT 0823 Nystatin 1 CATRACHO BID 12/06 1251 AC 12/08 TOP 0823 Omeprazole 40 MG DAILY AC 12/05 0700 AC 12/08 PO 0515 Polyethylene Glycol 17 GM DAILY 12/06 1155 AC 12/08 PO 0822 Potassium Chloride 40 MEQ ONCE ONE 12/08 0930 DC 12/08 PO 12/08 0931 1308 Prednisone 20 MG BID 12/09 0800 AC PO Prednisone 20 MG Q8H 12/08 1600 AC PO 12/09 0001 Prednisone 20 MG Q8 12/06 0945 DC 12/08 PO 12/08 2300 0823 Senna 187 MG AT BEDTIME 12/04 2100 AC 12/07 PO 2115 Spironolactone 25 MG DAILY 12/05 0900 AC 12/08 PO 0823 Last 24 Hrs of Lab/Parker Results Last 24 Hrs of Labs/Mics: Laboratory Tests 12/08/17 0740: CBC w Diff NO MAN DIFF REQ, RBC 4.65 L, MCV 84.3, MCH 27.8, MCHC 33.0, RDW 15.6 H, MPV 9.2, Gran % 83.7 H, Lymphocytes % 11.4 L, Monocytes % 4.7, Eosinophils % 0, Basophils % 0.2, Absolute Granulocytes 8.5 H, Absolute Lymphocytes 1.2, Absolute Monocytes 0.5, Absolute Eosinophils 0, Absolute Basophils 0 Assessment/Plan Assessment: Mr Simpson is a 55 yo m with a PMH of MS, quadriplegia, HFpEF, colonic pseudo- obstruction, neurogenic bladder s/p suprapubic catheter who presents to the ED with abdominal pressure. CT abd/pel showed asymptomatic Cholelithiasis without additional findings to suggest acute cholecystitis with prominent gaseous distention of the colon, most prominently affecting the sigmoid colon suggestive of chronic pseudoobstruction or ileus. Problem list: #Abdominal pain #History of MS #Leukocytosis - most likely 2/2 Prednisone use #Chronic colonic Pseudo-obstruction Plan: US abd consistent with cholelithiasis Continue Nystatin for groin rash Abdominal XR consistent with pseudo-obstruction with enlarged cecum Follow off antibiotics and monitor white count Continue Prednisone taper for MS, Spironolactone, Carvedilol Baclofen discontinue due to the possibility of causing pseudo-obstruction ( discussed with Dr. Preciado) Continue bowel regimen Appreciate ID recommendations Appreciate GI recommendations As per Surgery patient is not a candidate for surgical intervention because patient is able to move bowels Of note, patient's cecum measured 18 cm in 2016 at that time patient had a cecel tube placed for decompression, it now measures 23 cm, studies have shown increased incidence of cecal perforation with a diameter > 14 cm We will consider cecal tube insertion vs endoscopic decompression Diet: Regular DVT ppx: sc Enoxaparin Code: FULL Problem List: 1. ABDOMINAL DISTENSION Pain Ratin Pain Location: NA Pain Goal: Remain pain free Pain Plan: NA Tomorrow's Labs & Rationales: CBC, BEP Ramiro ZAMORA,Aggie 12/08/17 1127: Attending MD Review Statement Attending Statement Attending MD Statement: examined this patient, discuss w/resident/PA/LEAD SECURITY OFFICER, agreed w/resident/PA/LEAD SECURITY OFFICER, reviewed EMR data (avail), discussed with nursing, discussed with case mgmt, reviewed images, amended to note Attending Assessment/Plan: Patient seen and examined, remains somewhat distended. He denies any pain as such. Patient seen by GI and surgery and they recommended rectal tube. Vital Signs Date Time Temp Pulse Resp B/P B/P Pulse O2 O2 Flow FiO2 Mean Ox Delivery Rate 12/08 0823 73 118/64 12/08 0547 98.0 73 22 118/64 97 Room Air 12/07 2132 98.0 82 110/70 97 Room Air 12/07 2119 110/70 12/07 1355 97.6 72 18 124/62 98 Room Air on exam; aox3, nad. cv; s1,s2 rrr resp; clear abd; soft, distnded, bs+ but hypoactive. ext; no edema Laboratory Tests 12/08 0740 Hematology CBC w Diff NO MAN DIFF REQ WBC (4.8 - 10.8 /CUMM) 10.2 RBC (4.70 - 6.10 /CUMM) 4.65 L Hgb (14.0 - 18.0 G/DL) 12.9 L Hct (42 - 52 %) 39.2 L MCV (80.0 - 94.0 FL) 84.3 MCH (27.0 - 31.0 PG) 27.8 MCHC (33.0 - 37.0 G/DL) 33.0 RDW (11.5 - 14.5 %) 15.6 H Plt Count (130 - 400 /CUMM) 177 MPV (7.4 - 10.4 FL) 9.2 Gran % (42.2 - 75.2 %) 83.7 H Lymphocytes % (20.5 - 51.1 %) 11.4 L Monocytes % (1.7 - 9.3 %) 4.7 Eosinophils % (0 - 5 %) 0 Basophils % (0.0 - 2.0 %) 0.2 Absolute Granulocytes (1.4 - 6.5 /CUMM) 8.5 H Absolute Lymphocytes (1.2 - 3.4 /CUMM) 1.2 Absolute Monocytes (0.10 - 0.60 /CUMM) 0.5 Absolute Eosinophils (0.0 - 0.7 /CUMM) 0 Absolute Basophils (0.0 - 0.2 /CUMM) 0 A/P; 57 y/o M with pmh sig for MS, quadriplegia, HFpEF, colonic pseudo- obstruction, neurogenic bladder s/p suprapubic catheter, admitted with abd pain , UTI ruled out, Constipation, with abd CT showing gaseous distention, chronic pseudoobstruction or ileus. Follow up CXr continue to show gaseous distention with cecal distention. Abdominal ultrasound shows calcified gallstones but otherwise negative. We have consulted GI and surgery for this pseudoobstruction and they recommended rectocele. Patient has been watched off of antibiotics. Will insert a rectal tube. Will do serial abdominal x-rays. Continue prednisone taper per his home regimen. Continue the rest of the medications. Patient on Lovenox for DVT prophylaxis. Patient has an important wedding to attend tomorrow and he would really like to be discharged tomorrow morning if possible.
[2017-12-08 09:07] LABS: ABSOLUTE BASOPHIL COUNT 0 /CUMM (0.0-0.2); ABSOLUTE EOSINOPHIL COUNT 0 /CUMM (0.0-0.7); ABSOLUTE GRANULOCYTE CT 8.5 /CUMM (1.4-6.5); ABSOLUTE LYMPH COUNT 1.2 /CUMM (1.2-3.4); ABSOLUTE MONOCYTE COUNT 0.5 /CUMM (0.10-0.60); BASOPHIL % 0.2 % (0.0-2.0); EOSINOPHIL % 0 % (0-5); HEMATOCRIT 39.2 % (42-52); MEAN CORPUSCULAR HGB 27.8 PG (27.0-31.0); MEAN CORPUSCULAR VOLUME 84.3 FL (80.0-94.0); MEAN PLATELET VOLUME 9.2 FL (7.4-10.4); PLATELET COUNT 177 /CUMM (130-400); RBC DISTRIBUTION WIDTH 15.6 % (11.5-14.5); RED BLOOD CELL CT 4.65 /CUMM (4.70-6.10); WHITE BLOOD CELL COUNT 10.2 /CUMM (4.8-10.8)
[2017-12-08 10:03] LABS: GRANULOCYTE % 83.7 % (42.2-75.2)
--- NOTE | 2017-12-08 14:20 | PN- Gastroenterology ---
Assessment/Plan GI Assessment/Recommendations: Assessment: Mr. Simpson is a 57 year old male with MS on steroids who is admitted with acute colonic pseudoobstruction. While he has some discomfort and has impressive dilation on imaging his abdominal exam is benign and I'm not certain how far off of his baseline he really is. He is having bowel movements here with his current bowel regimen so hopefully his distention will improve with this along with a rectal tube which has still yet to be placed. If he fails to improve with supportive care would then give consideration for neostigmine or colonoscopic decompression if neostigmine is contraindicated. Recommendations: 1. Make pt NPO through today at least except for bowel prep medications 2. Continue current bowel regimen 3. Check a daily KUB 4. Place a rectal tube to low wall suction 5. Check a TSH and c diff toxin 6. Encourage movement in bed to left lateral decubitus position, right etc. 7. If distention persists would then transfer him to telemetry to give neostigmine if no cardiac contraindications and if there are will then consider colonoscopic decompression. I will continue to follow this patient and make further recommendations based on his clinical course and results of repeat imaging and blood work. Subjective Subjective: pt notes that he is still distended and it is a bit uncomfortable, but he is without overt pain or vomiting. he notes that he is passing gas and had a large bowel movement last night Objective Vital Signs and I&Os Vital Signs Date Time Temp Pulse Resp B/P B/P Pulse O2 O2 Flow FiO2 Mean Ox Delivery Rate 12/08 0823 73 118/64 12/08 0547 98.0 73 22 118/64 97 Room Air 12/07 2132 98.0 82 110/70 97 Room Air 12/07 2119 110/70 Intake & Output 12/08 1600 12/08 0400 12/07 1600 12/07 0400 12/06 1600 12/06 0400 Intake Total 120 120 929 006 1279 700 Output Total 700 814 713 3733 360 Balance -580 120 -130 70 -560 340 Intake, IV 10 Intake, Oral 120 120 859 306 1845 700 Number 2 4 3 3 Bowel Movements Output, Urine 700 497 266 6964 360 Patient 191 lb 188 lb 182 lb Weight Physical Exam General Appearance: well developed/nourished, no apparent distress, comfortable Head: atraumatic Neck: normal inspection, supple Respiratory: normal breath sounds, chest non-tender Cardiovascular: regular rate/rhythm Abdomen: normal bowel sounds, soft, non-tender, distention Skin: intact Current Medications: Current Medications Sig/Danitza Start time Last Medication Dose Route Stop Time Status Admin Bisacodyl 5 MG DAILY 12/05 0900 AC 12/08 PO 0823 Carvedilol 12.5 MG BID 12/04 2100 AC 12/08 PO 0823 Enoxaparin Sodium 40 MG DAILY 12/04 1742 AC 12/08 SC 0822 Magnesium Oxide 400 MG BID 12/08 1058 AC 12/08 PO 12/08 2101 1307 Neomycin/Polymyxin/ 1 CATRACHO DAILY 12/06 1742 AC 12/08 Bacitracin EXT 0823 Nystatin 1 CATRACHO BID 12/06 1251 AC 12/08 TOP 0823 Omeprazole 40 MG DAILY AC 12/05 0700 AC 12/08 PO 0515 Polyethylene Glycol 17 GM DAILY 12/06 1155 AC 12/08 PO 0822 Potassium Chloride 40 MEQ ONCE ONE 12/08 0930 DC 12/08 PO 12/08 0931 1308 Prednisone 20 MG BID 12/09 0800 AC PO Prednisone 20 MG Q8H 12/08 1600 AC PO 12/09 0001 Prednisone 20 MG Q8 12/06 0945 DC 12/08 PO 12/08 2300 0823 Senna 187 MG AT BEDTIME 12/04 2100 AC 12/07 PO 2115 Spironolactone 25 MG DAILY 12/05 0900 AC 12/08 PO 0823 Results Pertinent Lab Results: Laboratory Tests 12/08 12/07 0740 0845 Chemistry Sodium (137 - 145 mmol/L) 140 Potassium (3.5 - 5.1 mmol/L) 3.6 Chloride (98 - 107 mmol/L) 106 Carbon Dioxide (22 - 30 mmol/L) 24 Anion Gap (5 - 16) 11 BUN (9 - 20 mg/dL) 15 Creatinine (0.7 - 1.2 mg/dL) 0.3 L Estimated GFR (>60 ml/min) > 60 BUN/Creatinine Ratio (7 - 25 %) 50.0 H Phosphorus (2.5 - 4.5 mg/dL) 2.6 Magnesium (1.6 - 2.3 mg/dL) 1.9 Hematology CBC w Diff NO MAN DIFF REQ NO MAN DIFF REQ WBC (4.8 - 10.8 /CUMM) 10.2 11.1 H RBC (4.70 - 6.10 /CUMM) 4.65 L 4.91 Hgb (14.0 - 18.0 G/DL) 12.9 L 13.4 L Hct (42 - 52 %) 39.2 L 41.0 L MCV (80.0 - 94.0 FL) 84.3 83.6 MCH (27.0 - 31.0 PG) 27.8 27.4 MCHC (33.0 - 37.0 G/DL) 33.0 32.7 L RDW (11.5 - 14.5 %) 15.6 H 16.0 H Plt Count (130 - 400 /CUMM) 177 168 MPV (7.4 - 10.4 FL) 9.2 9.2 Gran % (42.2 - 75.2 %) 83.7 H 87.3 H Lymphocytes % (20.5 - 51.1 %) 11.4 L 9.1 L Monocytes % (1.7 - 9.3 %) 4.7 3.6 Eosinophils % (0 - 5 %) 0 0 Basophils % (0.0 - 2.0 %) 0.2 0 Absolute Granulocytes (1.4 - 6.5 /CUMM) 8.5 H 9.7 H Absolute Lymphocytes (1.2 - 3.4 /CUMM) 1.2 1.0 L Absolute Monocytes (0.10 - 0.60 /CUMM) 0.5 0.4 Absolute Eosinophils (0.0 - 0.7 /CUMM) 0 0 Absolute Basophils (0.0 - 0.2 /CUMM) 0 0 05/16 0715 Chemistry Sodium (137 - 145 mmol/L) 137 Potassium (3.5 - 5.1 mmol/L) 3.4 L Chloride (98 - 107 mmol/L) 104 Carbon Dioxide (22 - 30 mmol/L) 24 Anion Gap (5 - 16) 9 BUN (9 - 20 mg/dL) 15 Creatinine (0.7 - 1.2 mg/dL) 0.3 L Estimated GFR (>60 ml/min) > 60 BUN/Creatinine Ratio (7 - 25 %) 50.0 H Hematology CBC w Diff NO MAN DIFF REQ WBC (4.8 - 10.8 /CUMM) 13.5 H RBC (4.70 - 6.10 /CUMM) 4.94 Hgb (14.0 - 18.0 G/DL) 13.6 L Hct (42 - 52 %) 41.2 L MCV (80.0 - 94.0 FL) 83.4 MCH (27.0 - 31.0 PG) 27.5 MCHC (33.0 - 37.0 G/DL) 33.0 RDW (11.5 - 14.5 %) 15.7 H Plt Count (130 - 400 /CUMM) 181 MPV (7.4 - 10.4 FL) 9.2 Gran % (42.2 - 75.2 %) 91.1 H Lymphocytes % (20.5 - 51.1 %) 6.5 L Monocytes % (1.7 - 9.3 %) 2.4 Eosinophils % (0 - 5 %) 0 Basophils % (0.0 - 2.0 %) 0 Absolute Granulocytes (1.4 - 6.5 /CUMM) 12.3 H Absolute Lymphocytes (1.2 - 3.4 /CUMM) 0.9 L Absolute Monocytes (0.10 - 0.60 /CUMM) 0.3 Absolute Eosinophils (0.0 - 0.7 /CUMM) 0 Absolute Basophils (0.0 - 0.2 /CUMM) 0
[2017-12-08 15:03] VITALS: BP 100/62
--- NOTE | 2017-12-08 16:04 | PN- Infect Dx ---
Subjective Subjective: Afebrile without complaints. He has had multiple bowel movements. Objective Last 24 Hrs of Vital Signs/I&O Vital Signs Date Time Temp Pulse Resp B/P B/P Pulse O2 O2 Flow FiO2 Mean Ox Delivery Rate 12/08 1503 97.9 78 20 100/62 96 Room Air 12/08 0823 73 118/64 12/08 0547 98.0 73 22 118/64 97 Room Air 12/07 2132 98.0 82 110/70 97 Room Air 12/07 2119 110/70 Intake & Output 12/08 1600 12/08 0800 12/08 0000 Intake Total 850 120 120 Output Total 700 Balance 850 -580 120 Intake, Oral 850 120 120 Number 2 Bowel Movements Output, Urine 700 Patient 191 lb Weight Physical Exam Other Physical Findings: He appears comfortable in no acute distress Abdomen is distended, nontender with positive bowel sounds; suprapubic catheter in place Extremities mild edema of both feet, with no significant erythema Results Last 24 Hours of Lab Results: Laboratory Tests 12/08 0740 Hematology CBC w Diff NO MAN DIFF REQ WBC (4.8 - 10.8 /CUMM) 10.2 RBC (4.70 - 6.10 /CUMM) 4.65 L Hgb (14.0 - 18.0 G/DL) 12.9 L Hct (42 - 52 %) 39.2 L MCV (80.0 - 94.0 FL) 84.3 MCH (27.0 - 31.0 PG) 27.8 MCHC (33.0 - 37.0 G/DL) 33.0 RDW (11.5 - 14.5 %) 15.6 H Plt Count (130 - 400 /CUMM) 177 MPV (7.4 - 10.4 FL) 9.2 Gran % (42.2 - 75.2 %) 83.7 H Lymphocytes % (20.5 - 51.1 %) 11.4 L Monocytes % (1.7 - 9.3 %) 4.7 Eosinophils % (0 - 5 %) 0 Basophils % (0.0 - 2.0 %) 0.2 Absolute Granulocytes (1.4 - 6.5 /CUMM) 8.5 H Absolute Lymphocytes (1.2 - 3.4 /CUMM) 1.2 Absolute Monocytes (0.10 - 0.60 /CUMM) 0.5 Absolute Eosinophils (0.0 - 0.7 /CUMM) 0 Absolute Basophils (0.0 - 0.2 /CUMM) 0 Last 24 Hours of Parker Results: Blood cultures December 04 negative Assessment/Plan ID Impression: Stable, with temperatures and white blood cell count now both normal, off antibiotics and despite steroids, which are given for 24 days every 3 months for his multiple sclerosis, with no evidence for any infectious process. His abdominal distention persists, presumably secondary to his recurrent colonic pseudoobstruction, with GI comments noted and appreciated. Suggestion: 1. Further management of his pseudoobstruction per GI 2. Further management of steroids per Medicine 3. Continue to follow off antibiotics Will no longer follow at this time but please call with any questions
[2017-12-09 06:27] VITALS: BP 114/72
--- NOTE | 2017-12-09 07:40 | PN- Housestaff ---
See Addendum Subjective Follow-up For: Abdominal pain Pseudo-obstruction s/p rectal tube to low wall suction Subjective: Patient reports that he would like to leave today for a wedding but is agreeable to staying if he has to. He offers no complaints and report improving abdominal distention Review of Systems Constitutional: Reports: see HPI. Objective Last 24 Hrs of Vital Signs/I&O Vital Signs Date Time Temp Pulse Resp B/P B/P Pulse O2 O2 Flow FiO2 Mean Ox Delivery Rate 12/09 626 97.7 65 20 114/72 98 12/08 2155 72 100/68 12/08 1503 97.9 78 20 100/62 96 Room Air 12/08 0823 73 118/64 Intake & Output 12/09 1600 12/09 0800 12/09 0000 Intake Total 120 810 Output Total 450 750 Balance -330 60 Intake, IV 10 Intake, Oral 120 800 Number 1 1 Bowel Movements Output, Urine 450 750 Patient 187 lb Weight Weight Bed scale Measurement Method Physical Exam General Appearance: Alert, Oriented X3, Cooperative, No Acute Distress Cardiovascular: Regular Rate, Normal S1, Normal S2 Lungs: Clear to Auscultation, Normal Air Movement Abdomen: Abdominal distention Current Medications: Current Medications Sig/Danitza Start time Last Medication Dose Route Stop Time Status Admin Bisacodyl 5 MG DAILY 12/05 0900 AC 12/08 PO 0823 Carvedilol 12.5 MG BID 12/04 2100 AC 12/08 PO 2155 Enoxaparin Sodium 40 MG DAILY 12/04 1742 AC 12/08 SC 0822 Magnesium Oxide 400 MG BID 12/08 1058 DC 12/08 PO 12/08 2101 2156 Neomycin/Polymyxin/ 1 CATRACHO DAILY 12/06 1742 AC 12/08 Bacitracin EXT 0823 Nystatin 1 CATRACHO BID 12/06 1251 AC 12/08 TOP 2156 Omeprazole 40 MG DAILY AC 12/05 0700 AC 12/09 PO 0533 Polyethylene Glycol 17 GM DAILY 12/06 1155 AC 12/08 PO 0822 Potassium Chloride 40 MEQ ONCE ONE 12/08 0930 DC 12/08 PO 12/08 0931 1308 Prednisone 20 MG BID 12/09 0800 AC PO Prednisone 20 MG Q8H 12/08 1600 DC 12/08 PO 12/09 0001 2328 Prednisone 20 MG Q8 12/06 0945 DC 05/18 PO 12/08 2300 0823 Senna 187 MG AT BEDTIME 12/04 2100 AC 12/08 PO 2151 Spironolactone 25 MG DAILY 12/05 0900 AC 12/08 PO 0823 Last 24 Hrs of Lab/Parker Results Last 24 Hrs of Labs/Mics: Laboratory Tests 12/09/17 0700: Sodium Pending, Potassium Pending, Chloride Pending, Carbon Dioxide Pending, Anion Gap Pending, BUN Pending, Creatinine Pending, BUN/Creatinine Ratio Pending , TSH Pending, CBC w Diff Pending, WBC Pending, RBC Pending, Hgb Pending, Hct Pending, MCV Pending, MCH Pending, MCHC Pending, RDW Pending, Plt Count Pending, MPV Pending Microbiology 12/09 0300 STOOL: Clostridium difficile Toxin A & B - RECD Assessment/Plan Assessment: Mr Simpson is a 55 yo m with a PMH of MS, quadriplegia, HFpEF, colonic pseudo- obstruction, neurogenic bladder s/p suprapubic catheter who presents to the ED with abdominal pressure. CT abd/pel showed asymptomatic Cholelithiasis without additional findings to suggest acute cholecystitis with prominent gaseous distention of the colon, most prominently affecting the sigmoid colon suggestive of chronic pseudoobstruction or ileus. 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 Preciado) Continue bowel regimen Appreciate ID recommendations Appreciate GI recommendations As per Surgery patient is not a candidate for surgical intervention because patient is able to move bowels Diet: Regular DVT ppx: sc Enoxaparin Code: FULL Problem List: 1. ABDOMINAL DISTENSION Pain Ratin Pain Location: NA Pain Goal: Remain pain free Pain Plan: NA Tomorrow's Labs & Rationales: CBC,BEP
[2017-12-09 08:37] LABS: ABSOLUTE BASOPHIL COUNT 0 /CUMM (0.0-0.2); ABSOLUTE EOSINOPHIL COUNT 0 /CUMM (0.0-0.7); ABSOLUTE GRANULOCYTE CT 7.4 /CUMM (1.4-6.5); ABSOLUTE LYMPH COUNT 0.8 /CUMM (1.2-3.4); ABSOLUTE MONOCYTE COUNT 0.6 /CUMM (0.10-0.60); BASOPHIL % 0 % (0.0-2.0); EOSINOPHIL % 0 % (0-5); GRANULOCYTE % 84.7 % (42.2-75.2); HEMATOCRIT 40.2 % (42-52); MEAN CORPUSCULAR HGB 27.7 PG (27.0-31.0); MEAN CORPUSCULAR HGB CONC 32.8 G/DL (33.0-37.0); MEAN CORPUSCULAR VOLUME 84.4 FL (80.0-94.0); MEAN PLATELET VOLUME 8.9 FL (7.4-10.4); PLATELET COUNT 174 /CUMM (130-400); RBC DISTRIBUTION WIDTH 15.8 % (11.5-14.5); RED BLOOD CELL CT 4.76 /CUMM (4.70-6.10); WHITE BLOOD CELL COUNT 8.8 /CUMM (4.8-10.8)
[2017-12-09 14:52] VITALS: BP 128/72
--- NOTE | 2017-12-09 16:10 | RADIOLOGY REPORT ---
EXAMINATION: ABDOMEN 1 VIEW CLINICAL INFORMATION: Pseudoobstruction. Suprapubic catheter placement. COMPARISON: 12/06/2017. TECHNIQUE: A supine view of the abdomen is provided. FINDINGS: Again identified are numerous markedly dilated loops of bowel, likely large bowel. This is not significantly changed from prior exam. There is no evidence for pneumoperitoneum or pneumatosis. The osseous structures are stable. There has been placement of a suprapubic tube overlying the lower pelvis. IMPRESSION: Stable markedly dilated loops of large bowel. Suprapubic tube placement.
[2017-12-09 22:00] VITALS: BP 124/70
[2017-12-10 06:38] VITALS: BP 126/80
--- NOTE | 2017-12-10 08:16 | PN- Housestaff ---
See Addendum Subjective Follow-up For: Abdominal pain Pseudo-obstruction s/p rectal tube to low wall suction Subjective: Patient seen and examined at bedside today. Patient complains of bloating sensation. Denies abdominal pain. Review of Systems Constitutional: Reports: no symptoms, see HPI. Objective Last 24 Hrs of Vital Signs/I&O Vital Signs Date Time Temp Pulse Resp B/P B/P Pulse O2 O2 Flow FiO2 Mean Ox Delivery Rate 12/10 0832 61 126/80 12/10 0638 98.1 61 20 126/80 98 12/09 2200 98.0 79 18 124/70 98 Room Air 12/09 2040 79 124/70 12/09 1452 97.7 66 20 128/72 95 Room Air Intake & Output 12/10 1600 12/10 0800 12/10 0000 Intake Total 600 600 Output Total 1725 25 1425 Balance -1725 575 -825 Intake, IV 600 600 Output, Stool 25 25 Output, Urine 1725 1400 Patient 183 lb Weight Weight Bed scale Measurement Method Physical Exam General Appearance: Alert, Oriented X3, Cooperative, No Acute Distress Cardiovascular: Normal S1, Normal S2, No Murmurs, Gallops Lungs: Normal Air Movement Abdomen: Soft, bowel sounds heard Neurological: Normal Speech Current Medications: Current Medications Sig/Danitza Start time Last Medication Dose Route Stop Time Status Admin Bisacodyl 5 MG DAILY 12/05 0900 AC 12/10 PO 0829 Carvedilol 12.5 MG BID 12/04 2100 AC 12/10 PO 0832 Enoxaparin Sodium 40 MG DAILY 12/04 1742 AC 12/10 SC 0830 Neomycin/Polymyxin/ 1 CATRACHO DAILY 12/06 174 AC 12/10 Bacitracin EXT 0840 Nystatin 1 CATRACHO BID 12/06 1251 AC 12/10 TOP 0832 Omeprazole 40 MG DAILY AC 12/05 0700 AC 12/10 PO 0451 Polyethylene Glycol 17 GM DAILY 12/06 1155 AC 12/10 PO 0831 Potassium Chloride 20 MEQ .[id number] 12/09 1500 AC 12/10 Dextrose/Sodium 1,000 ML IV 0451 Chloride Prednisone 20 MG BID 12/10 0800 AC 12/10 PO 0829 Prednisone 20 MG TID 12/09 1600 DC 12/09 PO 12/09 2355 2040 Senna 187 MG AT BEDTIME 12/04 2100 AC 12/09 PO 2040 Spironolactone 25 MG DAILY 12/05 0900 AC 12/10 PO 0829 Last 24 Hrs of Lab/Parker Results Last 24 Hrs of Labs/Mics: Laboratory Tests 12/10/17 0715: Anion Gap 6, Estimated GFR > 60, BUN/Creatinine Ratio 40.0 H, CBC w Diff NO MAN DIFF REQ, RBC 4.84, MCV 84.3, MCH 27.6, MCHC 32.7 L, RDW 15.6 H, MPV 8.7, Gran % 79.4 H, Lymphocytes % 11.9 L, Monocytes % 8.6, Eosinophils % 0, Basophils % 0.1, Absolute Granulocytes 8.1 H, Absolute Lymphocytes 1.2, Absolute Monocytes 0.9 H, Absolute Eosinophils 0, Absolute Basophils 0 Microbiology 12/09 1724 STOOL: Clostridium difficile Toxin A & B - CAN Cancelled: Cancelled via OE: Error Assessment/Plan Assessment: Mr Simpson is a 55 yo m with a PMH of MS, quadriplegia, HFpEF, colonic pseudo- obstruction, neurogenic bladder s/p suprapubic catheter who presents to the ED with abdominal pressure. CT abd/pel showed asymptomatic Cholelithiasis without additional findings to suggest acute cholecystitis with prominent gaseous distention of the colon, most prominently affecting the sigmoid colon suggestive of chronic pseudoobstruction or ileus. 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 * Seen by GI who suggested to discontinue rectal tube, KUB x-ray tomorrow morning. If patient still complains of abdominal pain/abdominal distention constant neostigmine. * US abd consistent with cholelithiasis * Continue Nystatin for groin rash * Abdominal XR consistent with pseudo-obstruction with enlarged cecum * Follow off antibiotics and monitor white count * Continue Prednisone taper for MS, Spironolactone, Carvedilol * Baclofen discontinued due to the possibility of causing pseudo-obstruction ( discussed with Dr. Preciado) * Continue bowel regimen * Appreciate ID recommendations * Appreciate GI recommendations * As per Surgery patient is not a candidate for surgical intervention because patient is able to move bowels Diet: Regular DVT ppx: sc Enoxaparin Problem List: 1. ABDOMINAL DISTENSION 2. Pseudoobstruction of colon Pain Ratin Pain Location: none Pain Goal: Remain pain free Pain Plan: tylenol Tomorrow's Labs & Rationales: cbc,bep
[2017-12-10 08:27] LABS: ABSOLUTE BASOPHIL COUNT 0 /CUMM (0.0-0.2); ABSOLUTE EOSINOPHIL COUNT 0 /CUMM (0.0-0.7); ABSOLUTE GRANULOCYTE CT 8.1 /CUMM (1.4-6.5); ABSOLUTE LYMPH COUNT 1.2 /CUMM (1.2-3.4); ABSOLUTE MONOCYTE COUNT 0.9 /CUMM (0.10-0.60); BASOPHIL % 0.1 % (0.0-2.0); EOSINOPHIL % 0 % (0-5); GRANULOCYTE % 79.4 % (42.2-75.2); HEMATOCRIT 40.8 % (42-52); MEAN CORPUSCULAR HGB 27.6 PG (27.0-31.0); MEAN CORPUSCULAR HGB CONC 32.7 G/DL (33.0-37.0); MEAN CORPUSCULAR VOLUME 84.3 FL (80.0-94.0); MEAN PLATELET VOLUME 8.7 FL (7.4-10.4); PLATELET COUNT 168 /CUMM (130-400); RBC DISTRIBUTION WIDTH 15.6 % (11.5-14.5); RED BLOOD CELL CT 4.84 /CUMM (4.70-6.10); WHITE BLOOD CELL COUNT 10.2 /CUMM (4.8-10.8)
--- NOTE | 2017-12-10 10:32 | PN- Gastroenterology ---
Assessment/Plan GI Assessment/Recommendations: Assessment: Mr. Simpson is a 57 year old male with MS on steroids currently admitted with an exacerbation of his pseodo-obstruction which has clinically improved with temporary bowel rest and placement of a rectal tube. While he still has marked distention on his KUB I feel that most of that is chronic as there is no other way he would of tolerated a cecum to 23 cm without perforating and not only did he not perforate he has also maintained a relatively benign abdominal exam at least throughout the weekend. In any case, while the cecal dilation is concerning as he is currently pain free, no longer clinically distended and having a bowel movements with his current bowel regimen I would hold off any further therapeutic interventions at this time (ie. neostigmine). Of note, his TSH is within normal limits. Recommendations: 1. Advance diet as tolerated. 2. Follow up am KUB 3. Continue current bowel regimen 4. D/C rectal tube 5. If he develops significant abdominal pain and recurrent distention would then re-consider neostigmine. I will sign off at this time and ask that GI be re-contacted with any new or recurrent issues. Problem List: 1. Multiple sclerosis 2. Colonic pseudoobstruction Subjective Subjective: pt feeling well this am. has been tolerating a liquid diet and has been having bowel movements. Has a rectal tube which has resulted in improvement in his abdominal distention which his sister in law who was here this morning noted is 'better then it has ever been' Objective Vital Signs and I&Os Vital Signs Date Time Temp Pulse Resp B/P B/P Pulse O2 O2 Flow FiO2 Mean Ox Delivery Rate 12/10 0832 61 126/80 12/10 0638 98.1 61 20 126/80 98 12/09 2200 98.0 79 18 124/70 98 Room Air 12/09 2040 79 124/70 12/09 1452 97.7 66 20 128/72 95 Room Air Intake & Output 12/10 1600 12/10 0400 12/09 1600 12/09 0400 12/08 1600 12/08 0400 Intake Total 600 600 120 810 970 120 Output Total 1750 1425 1400 750 700 Balance -1150 -825 -1280 60 270 120 Intake, IV 600 600 10 Intake, Oral 120 800 970 120 Number 1 1 2 Bowel Movements Output, Other 100 Output, Stool 25 25 Output, Urine 1725 1400 1300 750 700 Patient 183 lb 187 lb 191 lb Weight Weight Bed scale Bed scale Measurement Method Physical Exam General Appearance: well developed/nourished, no apparent distress, comfortable Head: atraumatic Neck: supple Respiratory: normal breath sounds, no respiratory distress Cardiovascular: regular rate/rhythm Abdomen: normal bowel sounds, soft, non-tender, minimal distention Current Medications: Current Medications Sig/Danitza Start time Last Medication Dose Route Stop Time Status Admin Bisacodyl 5 MG DAILY 12/05 0900 AC 12/10 PO 0829 Carvedilol 12.5 MG BID 12/04 2100 AC 12/10 PO 0832 Enoxaparin Sodium 40 MG DAILY 12/04 1742 AC 12/10 SC 0830 Neomycin/Polymyxin/ 1 CATRACHO DAILY 12/06 174 AC 12/10 Bacitracin EXT 0840 Nystatin 1 CATRACHO BID 12/06 1251 AC 12/10 TOP 0832 Omeprazole 40 MG DAILY AC 12/05 0700 AC 12/10 PO 0451 Polyethylene Glycol 17 GM DAILY 12/06 1155 AC 12/10 PO 0831 Potassium Chloride 20 MEQ .[id number] 12/09 1500 AC 12/10 Dextrose/Sodium 1,000 ML IV 0451 Chloride Prednisone 20 MG BID 12/10 0800 AC 12/10 PO 0829 Prednisone 20 MG TID 12/09 1600 DC 12/09 PO 12/09 2355 2040 Senna 187 MG AT BEDTIME 12/04 2100 AC 12/09 PO 2040 Spironolactone 25 MG DAILY 12/05 0900 AC 12/10 PO 0829 Results Pertinent Lab Results: Laboratory Tests 12/10 12/09 0715 0700 Chemistry Sodium (137 - 145 mmol/L) 136 L 138 Potassium (3.5 - 5.1 mmol/L) 4.2 3.9 Chloride (98 - 107 mmol/L) 103 105 Carbon Dioxide (22 - 30 mmol/L) 26 26 Anion Gap (5 - 16) 6 7 BUN (9 - 20 mg/dL) 12 19 Creatinine (0.7 - 1.2 mg/dL) 0.3 L 0.3 L Estimated GFR (>60 ml/min) > 60 > 60 BUN/Creatinine Ratio (7 - 25 %) 40.0 H 63.3 H TSH (0.270 - 4.200 uIU/mL) 1.670 Hematology CBC w Diff NO MAN DIFF REQ NO MAN DIFF REQ WBC (4.8 - 10.8 /CUMM) 10.2 8.8 RBC (4.70 - 6.10 /CUMM) 4.84 4.76 Hgb (14.0 - 18.0 G/DL) 13.4 L 13.2 L Hct (42 - 52 %) 40.8 L 40.2 L MCV (80.0 - 94.0 FL) 84.3 84.4 MCH (27.0 - 31.0 PG) 27.6 27.7 MCHC (33.0 - 37.0 G/DL) 32.7 L 32.8 L RDW (11.5 - 14.5 %) 15.6 H 15.8 H Plt Count (130 - 400 /CUMM) 168 174 MPV (7.4 - 10.4 FL) 8.7 8.9 Gran % (42.2 - 75.2 %) 79.4 H 84.7 H Lymphocytes % (20.5 - 51.1 %) 11.9 L 8.9 L Monocytes % (1.7 - 9.3 %) 8.6 6.4 Eosinophils % (0 - 5 %) 0 0 Basophils % (0.0 - 2.0 %) 0.1 0 Absolute Granulocytes (1.4 - 6.5 /CUMM) 8.1 H 7.4 H Absolute Lymphocytes (1.2 - 3.4 /CUMM) 1.2 0.8 L Absolute Monocytes (0.10 - 0.60 /CUMM) 0.9 H 0.6 Absolute Eosinophils (0.0 - 0.7 /CUMM) 0 0 Absolute Basophils (0.0 - 0.2 /CUMM) 0 0 05/18 0740 Hematology CBC w Diff NO MAN DIFF REQ WBC (4.8 - 10.8 /CUMM) 10.2 RBC (4.70 - 6.10 /CUMM) 4.65 L Hgb (14.0 - 18.0 G/DL) 12.9 L Hct (42 - 52 %) 39.2 L MCV (80.0 - 94.0 FL) 84.3 MCH (27.0 - 31.0 PG) 27.8 MCHC (33.0 - 37.0 G/DL) 33.0 RDW (11.5 - 14.5 %) 15.6 H Plt Count (130 - 400 /CUMM) 177 MPV (7.4 - 10.4 FL) 9.2 Gran % (42.2 - 75.2 %) 83.7 H Lymphocytes % (20.5 - 51.1 %) 11.4 L Monocytes % (1.7 - 9.3 %) 4.7 Eosinophils % (0 - 5 %) 0 Basophils % (0.0 - 2.0 %) 0.2 Absolute Granulocytes (1.4 - 6.5 /CUMM) 8.5 H Absolute Lymphocytes (1.2 - 3.4 /CUMM) 1.2 Absolute Monocytes (0.10 - 0.60 /CUMM) 0.5 Absolute Eosinophils (0.0 - 0.7 /CUMM) 0 Absolute Basophils (0.0 - 0.2 /CUMM) 0 Imaging/Other Studies: SERVICE DATE: 12/09/17-06 EXAM TYPE: RAD - XRY-KIDNEYS, URETERS, BLADDER EXAMINATION: ABDOMEN 1 VIEW CLINICAL INFORMATION: Pseudoobstruction. Suprapubic catheter placement. COMPARISON: 12/06/2017. TECHNIQUE: A supine view of the abdomen is provided. FINDINGS: Again identified are numerous markedly dilated loops of bowel, likely large bowel. This is not significantly changed from prior exam. There is no evidence for pneumoperitoneum or pneumatosis. The osseous structures are stable. There has been placement of a suprapubic tube overlying the lower pelvis. IMPRESSION: Stable markedly dilated loops of large bowel. Suprapubic tube placement.
[2017-12-10 14:56] VITALS: BP 110/70
[2017-12-10 21:25] VITALS: BP 112/70
[2017-12-11 06:57] VITALS: BP 130/80
--- NOTE | 2017-12-11 07:58 | PN- Housestaff ---
Nico Shrestha 12/11/17 0758: Subjective Follow-up For: Abdominal pain - resolved Pseudo-obstruction s/p rectal tube to low wall suction Subjective: Patient offers no complaints. Denies nausea, vomiting, abdominal pain or pressure Review of Systems Constitutional: Reports: see HPI. Objective Last 24 Hrs of Vital Signs/I&O Vital Signs Date Time Temp Pulse Resp B/P B/P Pulse O2 O2 Flow FiO2 Mean Ox Delivery Rate 12/11 0657 95.9 83 20 130/80 99 Room Air 12/10 2125 97.9 80 19 112/70 98 Room Air 12/10 2019 110/70 12/10 1456 97.7 78 18 110/70 98 Room Air 12/10 0832 61 126/80 Intake & Output 12/11 1600 12/11 0800 12/11 0000 Intake Total 720 120 Output Total 925 2024 Balance -205 -1905 Intake, IV 600 Intake, Oral 120 120 Output, Stool 25 Output, Urine 900 2024 Patient 178 lb Weight Weight Bed scale Measurement Method Physical Exam General Appearance: Alert, Oriented X3, Cooperative Cardiovascular: Regular Rate, Normal S1, Normal S2 Lungs: Clear to Auscultation, Normal Air Movement Abdomen: Normal Bowel Sounds, Soft, No Tenderness Extremities: No Edema Current Medications: Current Medications Sig/Danitza Start time Last Medication Dose Route Stop Time Status Admin Bisacodyl 5 MG DAILY 12/05 09 AC 12/10 PO 0829 Carvedilol 12.5 MG BID 12/04 2099 AC 12/10 PO 2019 Enoxaparin Sodium 40 MG DAILY 12/04 1742 AC 12/10 SC 0830 Neomycin/Polymyxin/ 1 CATRACHO DAILY 12/06 174 AC 12/10 Bacitracin EXT 0840 Nystatin 1 CATRACHO BID 12/10 1314 AC 12/10 TOP 2010 Nystatin 1 CATRACHO BID 12/06 1251 DC 12/10 TOP 0832 Omeprazole 40 MG DAILY AC 12/05 0700 AC 12/11 PO 0513 Polyethylene Glycol 17 GM DAILY 12/06 1155 AC 12/10 PO 0831 Potassium Chloride 20 MEQ .[id number] 12/09 1500 AC 12/11 Dextrose/Sodium 1,000 ML IV 0801 Chloride Prednisone 20 MG BID 12/10 0800 AC 12/11 PO 0800 Senna 187 MG AT BEDTIME 12/04 2100 AC 12/10 PO 2019 Spironolactone 25 MG DAILY 12/05 0900 AC 12/10 PO 0829 Last 24 Hrs of Lab/Parker Results Last 24 Hrs of Labs/Mics: Laboratory Tests 12/11/17 0711: Sodium Pending, Potassium Pending, Chloride Pending, Carbon Dioxide Pending, Anion Gap Pending, BUN Pending, Creatinine Pending, BUN/Creatinine Ratio Pending , CBC w Diff Pending, WBC Pending, RBC Pending, Hgb Pending, Hct Pending, MCV Pending, MCH Pending, MCHC Pending, RDW Pending, Plt Count Pending, MPV Pending Assessment/Plan Assessment: Mr Simpson is a 55 yo m with a PMH of MS, quadriplegia, HFpEF, colonic pseudo- obstruction, neurogenic bladder s/p suprapubic catheter who presents to the ED with abdominal pressure. CT abd/pel showed asymptomatic Cholelithiasis without additional findings to suggest acute cholecystitis with prominent gaseous distention of the colon, most prominently affecting the sigmoid colon suggestive of chronic pseudoobstruction or ileus. Problem list: #Abdominal pain #History of MS #Leukocytosis - most likely 2/2 Prednisone use #Chronic colonic Pseudo-obstruction with cecal dilation (23>>18 cm) s/p rectal tube to low wall suction Assessment and plan * Continue Prednisone 20 mg twice a day * Seen by GI who suggested to discontinue rectal tube, KUB x-ray this morning. If patient still complains of abdominal pain/abdominal distention constant neostigmine. * US abd consistent with cholelithiasis * Continue Nystatin for groin rash * Repeat KUB in a.m to evaluate cecum * Follow off antibiotics and monitor white count * Continue Prednisone taper for MS, Spironolactone, Carvedilol * Baclofen discontinued due to the possibility of causing pseudo-obstruction ( discussed with Dr. Preciado) * Continue bowel regimen * Appreciate ID recommendations * Appreciate GI recommendations * As per Surgery patient is not a candidate for surgical intervention because patient is able to move bowels Diet: Full liquid DVT ppx: sc Enoxaparin Dispo: DC in a.m. Problem List: 1. ABDOMINAL DISTENSION Pain Ratin Pain Location: NA Pain Goal: Remain pain free Pain Plan: NA Tomorrow's Labs & Rationales: Aggie Whitman MD 12/11/17 1305: Attending MD Review Statement Attending Statement Attending MD Statement: examined this patient, discuss w/resident/PA/MICROBIOLOGY MANAGER, agreed w/resident/PA/MICROBIOLOGY MANAGER, reviewed EMR data (avail), discussed with nursing, discussed with case mgmt, reviewed images, amended to note Attending Assessment/Plan: Patient seen and examined, feels overall better. Patient still has a rectal tube in. Patient underwent abdominal x-ray today and we are waiting for the results. Vital Signs Date Time Temp Pulse Resp B/P B/P Pulse O2 O2 Flow FiO2 Mean Ox Delivery Rate 12/11 0850 83 130/80 12/11 0657 95.9 83 20 130/80 99 Room Air 12/10 2125 97.9 80 19 112/70 98 Room Air 12/10 2018 11070 12/10 1456 97.7 78 18 110/70 98 Room Air on exam; aox3, nad. cv; s1,s2, rrr resp; clear abd; soft, still somewhat distended although looks improved, bs+ ext; no edema Laboratory Tests 12/11 0711 Chemistry Sodium (137 - 145 mmol/L) 135 L Potassium (3.5 - 5.1 mmol/L) 4.1 Chloride (98 - 107 mmol/L) 102 Carbon Dioxide (22 - 30 mmol/L) 28 Anion Gap (5 - 16) 5 BUN (9 - 20 mg/dL) 11 Creatinine (0.7 - 1.2 mg/dL) 0.4 L Estimated GFR (>60 ml/min) > 60 BUN/Creatinine Ratio (7 - 25 %) 27.5 H Hematology CBC w Diff NO MAN DIFF REQ WBC (4.8 - 10.8 /CUMM) 8.1 RBC (4.70 - 6.10 /CUMM) 5.11 Hgb (14.0 - 18.0 G/DL) 14.2 Hct (42 - 52 %) 43.3 MCV (80.0 - 94.0 FL) 84.6 MCH (27.0 - 31.0 PG) 27.7 MCHC (33.0 - 37.0 G/DL) 32.8 L RDW (11.5 - 14.5 %) 16.0 H Plt Count (130 - 400 /CUMM) 152 MPV (7.4 - 10.4 FL) 8.6 Gran % (42.2 - 75.2 %) 76.4 H Lymphocytes % (20.5 - 51.1 %) 14.6 L Monocytes % (1.7 - 9.3 %) 8.5 Eosinophils % (0 - 5 %) 0.3 Basophils % (0.0 - 2.0 %) 0.2 Absolute Granulocytes (1.4 - 6.5 /CUMM) 6.2 Absolute Lymphocytes (1.2 - 3.4 /CUMM) 1.2 Absolute Monocytes (0.10 - 0.60 /CUMM) 0.7 H Absolute Eosinophils (0.0 - 0.7 /CUMM) 0 Absolute Basophils (0.0 - 0.2 /CUMM) 0 A/P; 57 y/o M with pmh sig for MS, quadriplegia, HFpEF, colonic pseudo- obstruction, neurogenic bladder s/p suprapubic catheter, admitted with abd pain , UTI ruled out, Constipation, with abd CT showing gaseous distention, chronic pseudoobstruction or ileus. Abdominal imaging was consistent with significant cecal distention. Patient has received rectal tube 3 days ago. GI recommended to discontinue the rectal tube yesterday and repeating abdominal KUB today. Patient refused the rectal tube to be taken out yesterday. Abdominal x-ray was done this morning and we are waiting for the read especially to see if there is any improvement in the cecal distention. Patient's diet has been advanced. We'll follow-up on the x-ray results. If x- ray shows improvement then will take the rectal tube out. We will have to repeat Abd xray in the morning to make sure that the improvement stays even without the rectal tube. If on the other hand there is no improvement then patient will need to be transferred to telemetry to get neostigmine after he gets cardiology clearance. Continue the rest of the management.
[2017-12-11 08:13] LABS: ABSOLUTE BASOPHIL COUNT 0 /CUMM (0.0-0.2); ABSOLUTE EOSINOPHIL COUNT 0 /CUMM (0.0-0.7); ABSOLUTE GRANULOCYTE CT 6.2 /CUMM (1.4-6.5); ABSOLUTE LYMPH COUNT 1.2 /CUMM (1.2-3.4); ABSOLUTE MONOCYTE COUNT 0.7 /CUMM (0.10-0.60); BASOPHIL % 0.2 % (0.0-2.0); EOSINOPHIL % 0.3 % (0-5); GRANULOCYTE % 76.4 % (42.2-75.2); HEMATOCRIT 43.3 % (42-52); MEAN CORPUSCULAR HGB 27.7 PG (27.0-31.0); MEAN CORPUSCULAR HGB CONC 32.8 G/DL (33.0-37.0); MEAN CORPUSCULAR VOLUME 84.6 FL (80.0-94.0); MEAN PLATELET VOLUME 8.6 FL (7.4-10.4); PLATELET COUNT 152 /CUMM (130-400); RED BLOOD CELL CT 5.11 /CUMM (4.70-6.10); WHITE BLOOD CELL COUNT 8.1 /CUMM (4.8-10.8)
--- NOTE | 2017-12-11 13:28 | RADIOLOGY REPORT ---
EXAMINATION: XR KIDNEYS, URETER, BLADDER CLINICAL INDICATION: Pseudoobstruction. Please comment on cecum size. COMPARISON: KUB dated 12/09/2017, 12/06/2017, and 12/06/2017. CT scan of the abdomen and pelvis dated 12/04/2017. TECHNIQUE: AP view of the abdomen performed on 4 images. FINDINGS: A suprapubic catheter is again seen in place, unchanged. There is marked gaseous distention of the colon again seen with the cecum measuring up to 18 cm in diameter, similar to the previous exam. No pneumatosis is noted. Small bowel loops are mildly distended with gas. Some gas is also seen in the stomach. No definite free air appreciated on supine imaging. Several gallstones suggested on abdominal ultrasound are poorly appreciated on plain film. Lung bases are clear. Moderate degenerative changes as seen in the hip joints bilaterally. IMPRESSION: 1. Marked gaseous distention of the entire colon and cecum measuring up to 18 cm in size, similar to prior exam. Findings are likely related to a colonic ileus/[place]'s syndrome. 2. No definite free air seen in the abdomen, though evaluation is limited on supine imaging.
[2017-12-11 15:27] VITALS: BP 120/70
--- NOTE | 2017-12-11 17:58 | Cons- Cardiology ---
General Information and HPI Consulting Request Date of Consult: 12/11/17 Requested By: Aggie Rubio MD Reason for Consult: "Chest pain". Source of Information: patient, old records Exam Limitations: no limitations History of Present Illness: Mr. Emma Simpson is a 57-year-old male with a history of obesity, advanced multiple sclerosis and secondary quadraplegia, neurogenic bladder, s/p suprapubic cystostomy, former heavy tobacco use, hypertension, dyslipidemia, previous cardiomyopathy with EF of 24% and heart failure (HFrEF) ~2000 that improved on his heart failure regimen and recurrent pseudoobstruction who again presents with pseudoobstruction and who we are asked to evaluate in regard to a prolonged episode of "chest" discomfort on 12/04/2017. He recalls eating a bagel at around 12:30 p.m. that day and a while later he started to feel a lower abdominal cramping sensation that gradually worked its way up into his chest and then down his right arm with some associated anxiety and difficulty breathing it. The discomfort rates in intensity of 8/10 and lasted for several hours before spontaneously resolving. He has had no similar episodes of discomfort since that time. He was afebrile on admission, but did have significantly elevated WBC count with a left shift and CT findings consistent with chronic pseudoobstruction or ileus. CT of the abdomen and pelvis also revealed cholelithiasis without cholecystitis. Allergies/Medications Allergies: Coded Allergies: No Known Allergies (12/04/17) Home Med List: Ascorbate Calcium/Bioflavonoid (Maryann-C 500 MG Tablet) 500 MG-200 MG TABLET 1 TAB PO DAILY SUPPLEMENT (Reported) Baclofen 10 MG TABLET 1 TAB PO AD MUSCLE SPASMS (Reported) Bifidobacterium Infantis (Align) 4 MG (1 BILLION CELL) CAPSULE 1 CAP PO DAILY GI (Reported) Carvedilol (Coreg) 12.5 MG TABLET 1 TAB PO BID HEART (Reported) Cholecalciferol (Vitamin D3) (Vitamin D3) 2,000 UNIT TABLET 1 TAB PO DAILY VITAMIN SUPPORT (Reported) Cod Liver Oil 1 EACH CAPSULE 1 CAP PO DAILY SUPPLEMENT (Reported) Cyanocobalamin (Vitamin B-12) (Vitamin B-12) 500 MCG TABLET 1 TAB PO DAILY VITAMIN SUPPORT (Reported) Ibuprofen (Advil Liqui-Gels) 200 MG CAPSULE 2 CAP PO Q4H PRN PAIN (Reported) Interferon Beta-1a/Albumin (Avonex Admin Pack 30 Mcg Vl) 30 MCG (1 ML) KIT 1 ML IM QWED MS (Reported) Krill/Om-3/Dha/Epa/Phospho/Ast ([place]-3 Krill Oil Sfgl) 300-90-24 CAPSULE 1 CAP PO DAILY SUPPLEMENT (Reported) Nitrofurantoin Macrocrystal (Nitrofurantoin) 100 MG CAPSULE 1 CAP PO Q12H (Reported) Nystatin 100,000 UNIT/GRAM CREAM..G. 1 CATRACHO TOP AD PRN SKIN (Reported) apply to affected area(s) Pantoprazole Sodium 40 MG TABLET.DR 1 TAB PO DAILY ACID REFLUX (Reported) Polyethylene Glycol 3350 (Miralax) 17 GRAM/DOSE POWDER 17 GM PO DAILY CONSTIPATION Potassium Chloride (Klor-Con M20) 20 MEQ TAB.ER.PRT 1 TAB PO BID SUPPLEMENT ( Reported) Prednisone 20 MG TABLET 1 TAB PO Q8 PRN ms exacerbation (Reported) Sennosides/Docusate Sodium (Senna-Time S Tablet) 8.6 MG-50 MG TABLET 187 MG PO AT BEDTIME CONSTIPATION/GAS Spironolactone (Aldactone) 25 MG TABLET 1 TAB PO DAILY WATER RETENTION ( Reported) Vits A and D/White Pet/Lanolin (A and D Ointment) 42.5 GM OINT...G. 1 CATRACHO TOP AD PRN SKIN (Reported) ZINC 50 MG TABLET 1 TAB PO DAILY SUPPLEMENT (Reported) Review of Systems Review of Systems: A 14 point system review was obtained was noncontributory, other than as above. Past History Travel History Traveled to [place] past 21 day No Medical History Blood Transfusion Hx: No Neurological: multiple sclerosis EENT: NONE Cardiovascular: cardiomyopathy, hypertension, CONGESTIVE HEART FAILURE HPL CARDIOMYOPATHY Respiratory: NONE Gastrointestinal: PSEUDOOBSTRUCTION Hepatic: NONE Renal: SUPRAPUBIC TUBE-FREQUENT OBSTRUCTION. 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 Home Who Do You Live With? parent Services at Home: Home Health Aide, Nursing Smoking Status: Former Smoker ETOH Use: denies use Illicit Drug Use: denies illicit drug use Functional Ability ADLs Needs Assist: dressing, eating, toileting, bathing. Ambulation: non-ambulatory IADLs Needs Assist: shopping, housework, finances, food prep, telephone, transportation, medication admin. Exam & Diagnostic Data Vital Signs and I&O Vital Signs Date Time Temp Pulse Resp B/P B/P Pulse O2 O2 Flow FiO2 Mean Ox Delivery Rate 12/11 1527 98.1 93 20 120/70 96 Room Air 12/11 0850 83 130/80 12/11 0657 95.9 83 20 130/80 99 Room Air 12/10 2125 97.9 80 19 112/70 98 Room Air 12/10 2019 110/70 Intake & Output 12/11 1600 12/11 0800 12/11 0000 12/10 1600 12/10 0800 12/10 0000 Intake Total 1250 197 532 9239 600 600 Output Total 8923 248 5491 2600 25 1425 Balance -650 -205 -1905 -1390 575 -825 Intake, IV 600 600 610 600 600 Intake, Oral 650 120 120 600 Number 1 Bowel Movements Output, Stool 25 25 25 25 Output, Urine 9927 275 0518 2575 1400 Patient 178 lb 183 lb Weight Weight Bed scale Bed scale Measurement Method Physical Exam: Well-developed, obese middle-aged male in no acute distress. Vital signs: See above. HEENT: Normocephalic, atraumatic, EOMI, slightly dry mucous membranes. Neck: No JVD, no bruits. Lungs: Clear to auscultation anteriorly. Heart: S1, S2 with no murmur, gallop, or rub. PMI not well felt. Abdomen: Soft, positive bowel sounds, mildly tender to palpation. Extremities: No edema. Labs/Parker Results: Laboratory Tests 12/11 12/10 0711 0715 Chemistry Sodium (137 - 145 mmol/L) 135 L 136 L Potassium (3.5 - 5.1 mmol/L) 4.1 4.2 Chloride (98 - 107 mmol/L) 102 103 Carbon Dioxide (22 - 30 mmol/L) 28 26 Anion Gap (5 - 16) 5 6 BUN (9 - 20 mg/dL) 11 12 Creatinine (0.7 - 1.2 mg/dL) 0.4 L 0.3 L Estimated GFR (>60 ml/min) > 60 > 60 BUN/Creatinine Ratio (7 - 25 %) 27.5 H 40.0 H Hematology CBC w Diff NO MAN DIFF REQ NO MAN DIFF REQ WBC (4.8 - 10.8 /CUMM) 8.1 10.2 RBC (4.70 - 6.10 /CUMM) 5.11 4.84 Hgb (14.0 - 18.0 G/DL) 14.2 13.4 L Hct (42 - 52 %) 43.3 40.8 L MCV (80.0 - 94.0 FL) 84.6 84.3 MCH (27.0 - 31.0 PG) 27.7 27.6 MCHC (33.0 - 37.0 G/DL) 32.8 L 32.7 L RDW (11.5 - 14.5 %) 16.0 H 15.6 H Plt Count (130 - 400 /CUMM) 152 168 MPV (7.4 - 10.4 FL) 8.6 8.7 Gran % (42.2 - 75.2 %) 76.4 H 79.4 H Lymphocytes % (20.5 - 51.1 %) 14.6 L 11.9 L Monocytes % (1.7 - 9.3 %) 8.5 8.6 Eosinophils % (0 - 5 %) 0.3 0 Basophils % (0.0 - 2.0 %) 0.2 0.1 Absolute Granulocytes (1.4 - 6.5 /CUMM) 6.2 8.1 H Absolute Lymphocytes (1.2 - 3.4 /CUMM) 1.2 1.2 Absolute Monocytes (0.10 - 0.60 /CUMM) 0.7 H 0.9 H Absolute Eosinophils (0.0 - 0.7 /CUMM) 0 0 Absolute Basophils (0.0 - 0.2 /CUMM) 0 0 Diagnostic Data EKG Results 12/04/2017: Sinus rhythm, probable DEREK, LVH with repolarization abnormalities, and an old inferior wall myocardial infarction. No significant change when compared to previous tracing from 08/15/2016. Other Results KUB x-ray 12/11/2017: 1. Marked gaseous distention of the entire colon and cecum measuring up to 18 cm in size, similar to prior exam. 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 2. No definite free air seen in the abdomen, though evaluation is limited on supine imaging. Abdominal x-ray 12/06/2017: Significant gaseous distention of large bowel consistent with history of pseudoobstruction. The bowel pattern is similar to prior studies. The cecum is more distended on this exam than previous exams. CT abdomen/pelvis 12/04/2017: 1. Similar appearance to prior with prominent gaseous distention of the colon, most prominently affecting the sigmoid colon. This is suggestive of chronic pseudoobstruction or ileus. There is mild to moderate stool burden within the right hemicolon. The small bowel is normal in caliber. 2. Cholelithiasis without additional findings to suggest acute cholecystitis. Assessment/Plan Assessment/Plan [id number]-m w/ hx of obesity, advanced MS & secondary quadraplegia, neurogenic bladder, s/p suprapubic cystostomy, fmr heavy tobacco use, HTN, HLD, previous cardiomyopathy w/ EF of 24% & HF (HFrEF) ~2001 that improved on his heart failure regimen and recurrent pseudoobstruction who again presents w/ pseudoobstruction and who we are asked to evaluate in regard to a prolonged episode of "chest" discomfort on 12/04/2017. Suspect his episode of chest discomfort was referred pain from his pseudoobstruction, however, he does have risk factors for CAD and an abnormal ECG suggesting an old inferior wall myocardial infarction. Given the duration of his chest discomfort, one would have anticipated an elevated troponin I level if his chest discomfort was secondary to prolonged ischemia/injury, but his initial troponin I was negative. Recommendations: * Repeat an ECG. * Repeat a troponin I level. * Obtain an echocardiogram to assess for wall motion abnormalities, given his abnormal 12-lead ECG. * Continue on his beta-chandana and aldosterone receptor antagonist. * Given his multiple comorbidities, would recommend a conservative course of management. * Continue DVT prophylaxis. Further recommendations will follow, Thank you. Consult Acknowledgment - Thank you for your consult request.
[2017-12-11 20:30] VITALS: BP 98/62
[2017-12-12 07:15] VITALS: BP 108/74
--- NOTE | 2017-12-12 08:19 | PN- Housestaff ---
Nico Shrestha 12/12/17 0818: Subjective Follow-up For: Abdominal pain - resolved Pseudo-obstruction s/p rectal tube to low wall suction Subjective: Patient offers no complaints. Denies nausea, vomiting, abdominal pain or pressure Review of Systems Constitutional: Reports: see HPI. Objective Last 24 Hrs of Vital Signs/I&O Vital Signs Date Time Temp Pulse Resp B/P B/P Pulse O2 O2 Flow FiO2 Mean Ox Delivery Rate 12/12 0715 97.6 82 18 108/74 96 12/11 2035 98 98/62 12/11 2030 97.7 94 18 98/62 98 Room Air 12/11 1527 98.1 93 20 120/70 96 Room Air Intake & Output 12/12 1600 12/12 0800 12/12 0000 Intake Total 1380 947 Output Total 1200 1400 Balance 180 -453 Intake, IV 900 497 Intake, Oral 480 450 Number 0 1 Bowel Movements Output, Urine 1200 1400 Patient 182 lb Weight Physical Exam General Appearance: Alert, Oriented X3, Cooperative, No Acute Distress Cardiovascular: Regular Rate, Normal S1, Normal S2 Lungs: Clear to Auscultation, Normal Air Movement Abdomen: Normal Bowel Sounds, Soft, No Tenderness Current Medications: Current Medications Sig/Danitza Start time Last Medication Dose Route Stop Time Status Admin Bisacodyl 5 MG DAILY 12/05 09 AC 12/11 PO 0850 Carvedilol 12.5 MG BID 12/04 2100 AC 12/11 PO 2035 Enoxaparin Sodium 40 MG DAILY 12/04 1742 AC 12/11 SC 0850 Ibuprofen 200 MG Q6P PRN 12/11 1445 AC PO Neomycin/Polymyxin/ 1 CATRACHO DAILY 12/06 174 AC 12/11 Bacitracin EXT 0851 Nystatin 1 CATRACHO BID 12/10 1314 AC 12/11 TOP 2036 Omeprazole 40 MG DAILY AC 12/05 0700 AC 12/12 PO 0459 Polyethylene Glycol 17 GM DAILY 12/06 1155 AC 12/11 PO 0850 Potassium Chloride 20 MEQ .[id number] 12/09 1500 AC 12/11 Dextrose/Sodium 1,000 ML IV 2333 Chloride Prednisone 20 MG BID 12/10 0800 AC 12/12 PO 0759 Senna 187 MG AT BEDTIME 12/04 2100 AC 12/11 PO 2035 Spironolactone 25 MG DAILY 12/05 09 AC 12/11 PO 0850 Last 24 Hrs of Lab/Parker Results Last 24 Hrs of Labs/Mics: Laboratory Tests 12/12/17 0733: Anion Gap 7, Estimated GFR > 60, BUN/Creatinine Ratio 30.0 H, Troponin I < 0.01 12/12/17 0700: Troponin I Cancelled Assessment/Plan Assessment: Mr Simpson is a 55 yo m with a PMH of MS, quadriplegia, HFpEF, colonic pseudo- obstruction, neurogenic bladder s/p suprapubic catheter who presents to the ED with abdominal pressure. CT abd/pel showed asymptomatic Cholelithiasis without additional findings to suggest acute cholecystitis with prominent gaseous distention of the colon, most prominently affecting the sigmoid colon suggestive of chronic pseudoobstruction or ileus. Problem list: #Abdominal pain #History of MS #Leukocytosis - most likely 2/2 Prednisone use #Chronic colonic Pseudo-obstruction with cecal dilation (23>>18 cm) s/p rectal tube to low wall suction Assessment and plan * Continue Prednisone 20 mg twice a day * Seen by GI who suggested to discontinue rectal tube. If patient still complains of abdominal pain/abdominal distention constant neostigmine. * US abd consistent with cholelithiasis * Continue Nystatin for groin rash * Repeat KUB pending to evaluate cecum shows no significant change * Follow off antibiotics and monitor white count * Continue Prednisone taper for MS, Spironolactone, Carvedilol * Baclofen discontinued due to the possibility of causing pseudo-obstruction ( discussed with Dr. Preciado) * Continue bowel regimen * Appreciate ID recommendations * Appreciate GI recommendations * As per Surgery patient is not a candidate for surgical intervention because patient is able to move bowels Diet: Full liquid DVT ppx: sc Enoxaparin Dispo: DC pending patient's living conditions Problem List: 1. ABDOMINAL DISTENSION Pain Ratin Pain Location: NA Pain Goal: Remain pain free Pain Plan: NA Tomorrow's Labs & Rationales: Aggie Whitman MD 12/12/17 1226: Attending MD Review Statement Attending Statement Attending MD Statement: examined this patient, discuss w/resident/PA/ROTARY DRILLER HELPER, agreed w/resident/PA/ROTARY DRILLER HELPER, reviewed EMR data (avail), discussed with nursing, discussed with case mgmt, reviewed images, amended to note Attending Assessment/Plan: Patient seen and examined, complained that he's feeling better. He came back from his abdominal x-ray which shows that the cecum is distended 19.5 cm. It is slightly enlarged then yesterday but certainly not enlarged enough as it has been shown in the previous imaging. This is likely his baseline. He does feel improved overall clinically in terms of feeling bloated and said that he feels less bloated. There are 2 bowel movements reported from yesterday. Vital Signs Date Time Temp Pulse Resp B/P B/P Pulse O2 O2 Flow FiO2 Mean Ox Delivery Rate 12/12 1145 76 118/82 12/12 0715 97.6 82 18 108/74 96 12/11 2035 98 98/62 12/11 2030 97.7 94 18 98/62 98 Room Air 12/11 1527 98.1 93 20 120/70 96 Room Air on exam; aox3, nad. cv; s1,s2, rrr resp; clear abd; soft, bs+, nt ext; no edema Laboratory Tests 12/12 12/12 0733 0700 Chemistry Sodium (137 - 145 mmol/L) 135 L Potassium (3.5 - 5.1 mmol/L) 4.3 Chloride (98 - 107 mmol/L) 101 Carbon Dioxide (22 - 30 mmol/L) 28 Anion Gap (5 - 16) 7 BUN (9 - 20 mg/dL) 9 Creatinine (0.7 - 1.2 mg/dL) 0.3 L Estimated GFR (>60 ml/min) > 60 BUN/Creatinine Ratio (7 - 25 %) 30.0 H Troponin I (<0.11 ng/ml) < 0.01 Cancelled A/P: 57 y/o M with pmh sig for MS, quadriplegia, HFpEF, colonic pseudo- obstruction, neurogenic bladder s/p suprapubic catheter, admitted with abd pain , UTI ruled out, Constipation, with abd CT showing gaseous distention, chronic pseudoobstruction or ileus. S/P Rectal Tube x 3 days. clinically and radiologically improved. Appreciate cardiology input. Dr. Membreno recommended echocardiogram. We will follow-up on the echo results. If patient continues to have bowel movements then he will likely be discharged home tomorrow on current regimen. The rest of his home medications will be continued. DVT px; Lovenox.
--- NOTE | 2017-12-12 09:59 | RADIOLOGY REPORT ---
EXAMINATION: XR KIDNEYS, URETER, BLADDER CLINICAL INDICATION: Pseudoobstruction. Abdominal distention. COMPARISON: 12/11/2017. TECHNIQUE: AP view of the abdomen. FINDINGS: There is diffuse gaseous distention of the colon again noted. The cecum remains markedly distended, likely measuring approximately 19.5 cm. This is increased from the previous study. Previous suprapubic catheter is no longer present. Degenerative changes throughout the spine. IMPRESSION: Increasing gaseous distention of the colon, with the cecum now measuring approximately 19.5 cm..
[2017-12-12] MEDS ORDERED: MIRALAX119 GM PO (10:45)
[2017-12-12] MEDS ORDERED: SENNA-TIME S T1 EACH PO (10:45)
[2017-12-12 11:45] VITALS: BP 118/82
[2017-12-12 14:46] VITALS: BP 120/78
--- NOTE | 2017-12-12 18:16 | ECHOCARDIOGRAM REPORT ---
HUSAM GOTTLIEB Age: 57 : 1960 Gender: M Exam Date: 12/11/2017 19:09 Exam Location: [address] [place] [address] Ht (in): 71 Wt (lb): 177 BSA: 2.01 BP: 130 / 80 Ordering Physician: Nico Shrestha MD Referring Physician: Musa Membreno MD Technologist: Alycia Venegas [facility] Room Number: 208 Indications: HEART FAILURE Rhythm: Sinus Technical Quality: Poor FINDINGS Left Ventricle Normal size left ventricle. Moderate concentric left ventricular hypertrophy. No obvious regional wall motion abnormalities. Normal left ventricular ejection fraction visually estimated at >55%. Abnormal relaxation filling pattern of the left ventricle for age (stage 1 diastolic dysfunction). Right Ventricle Normal right ventricular size and function. Right Atrium Normal right atrial size. Left Atrium Normal left atrial size. Mitral Valve Mildly thickened mitral valve leaflets. Trace mitral regurgitation. Aortic Valve Trileaflet aortic valve. Mild aortic sclerosis. No aortic valve stenosis or regurgitation. Tricuspid Valve Structurally normal tricuspid valve. Mild tricuspid regurgitation. No evidence of pulmonary hypertension. Right ventricular systolic pressure estimated to be within the normal range at 32 mmHg. Pulmonic Valve Pulmonic valve not well visualized, grossly normal. No pulmonic regurgitation. Pericardium No pericardial effusion. Great Vessels Upper normal limits for size aortic root. CONCLUSIONS Normal size left ventricle. Moderate concentric left ventricular hypertrophy. Normal left ventricular ejection fraction visually estimated at > 55%. Abnormal relaxation filling pattern of the left ventricle for age (stage 1 diastolic dysfunction). Normal right ventricular size and function. Normal atrial size. Trace mitral regurgitation. Mild tricuspid regurgitation. No evidence of pulmonary hypertension. Musa Membreno M.D. (Electronically Signed) Final Date: 12 Dec 2017 18:16 MEASUREMENTS (Male / Female) Normal Values 2D ECHO LV Diastolic Diameter PLAX 3.8 cm 4.2 - 5.9 / 3.9 - 5.3 cm LV Systolic Diameter PLAX 2.4 cm 2.1 - 4.0 cm LV Fractional Shortening PLAX 36.8 % 25 - 46 % LV Ejection Fraction 2D Teich 67.5 % IVS Diastolic Thickness 1.5 cm LVPW Diastolic Thickness 1.4 cm LV Relative Wall Thickness 0.8 RV Internal Dim ED PLAX 2.4 cm 1.9 - 3.8 cm LVOT Diameter 2.4 cm Aortic Root Diameter 3.5 cm LA Systolic Diameter LX 2.8 cm 3.0 - 4.0 / 2.7 - 3.8 cm LA Volume 19.0 cm 18 - 58 / 22 - 52 cm DOPPLER AV Peak Velocity 97.1 cm/s AV Peak Gradient 3.8 mmHg AV Mean Velocity 70.3 cm/s AV Mean Gradient 2.0 mmHg AV Velocity Time Integral 18.6 cm LVOT Peak Velocity 81.8 cm/s LVOT Peak Gradient 2.7 mmHg LVOT Mean Velocity 54.5 cm/s LVOT Mean Gradient 1.0 mmHg LVOT Velocity Time Integral 14.4 cm LVOT Stroke Volume 65.1 cm AV Area Cont Eq vti 3.5 cm AV Area Cont Eq pk 3.8 cm MV Peak Velocity 73.7 cm/s MV Peak Gradient 2.2 mmHg MV Mean Velocity 47.3 cm/s MV Mean Gradient 1.0 mmHg Mitral E Point Velocity 33.8 cm/s Mitral A Point Velocity 44.6 cm/s Mitral E to A Ratio 0.8 MV PHT Velocity 76.0 cm/s MV Deceleration [place] 627.0 cm/s MV Pressure Half Time 36.4 ms MV Area PHT 6.0 cm MV Deceleration Time 272.0 ms TR Peak Velocity 261.0 cm/s TR Peak Gradient 27.2 mmHg Right Atrial Pressure 5.0 mmHg Pulmonary Artery Systolic Pressu 32.2 mmHg Right Ventricular Systolic Press 32.2 mmHg PV Peak Velocity 96.1 cm/s PV Peak Gradient 3.7 mmHg PV Mean Velocity 67.4 cm/s PV Mean Gradient 2.0 mmHg PV Velocity Time Integral 18.1 cm LV E' Lateral Velocity 8.3 cm/s Mitral E to LV E' Lateral Ratio 4.1 LV E' Septal Velocity 6.0 cm/s Mitral E to LV E' Septal Ratio 5.6
[2017-12-12 21:43] VITALS: BP 102/64
[2017-12-13 06:26] VITALS: BP 110/72
--- NOTE | 2017-12-13 07:45 | PN- Housestaff ---
See Addendum Subjective Follow-up For: Abdominal pain - resolved Pseudo-obstruction s/p rectal tube to low wall suction Subjective: Patient offers no complaints. Denies nausea, vomiting, abdominal pain or pressure Review of Systems Constitutional: Reports: see HPI. Objective Last 24 Hrs of Vital Signs/I&O Vital Signs Date Time Temp Pulse Resp B/P B/P Pulse O2 O2 Flow FiO2 Mean Ox Delivery Rate 12/13 0754 77 118/74 12/13 0626 98.1 72 18 110/72 97 Room Air 12/12 2216 74 114/78 12/12 2143 97.9 80 19 102/64 95 Room Air 12/12 1600 97 Room Air 12/12 1446 96.8 88 18 120/78 97 Room Air 12/12 1145 76 118/82 12/12 1145 76 118/82 Intake & Output 12/13 1600 12/13 0800 12/13 0000 Intake Total 420 Output Total 1500 1200 Balance -1500 -780 Intake, IV 300 Intake, Oral 120 Number 0 Bowel Movements Output, Urine 1500 1200 Patient 176 lb Weight Physical Exam General Appearance: Alert, Oriented X3, Cooperative Cardiovascular: Regular Rate, Normal S1, Normal S2 Lungs: Clear to Auscultation, Normal Air Movement Abdomen: Normal Bowel Sounds, Soft, No Tenderness Current Medications: Current Medications Sig/Danitza Start time Last Medication Dose Route Stop Time Status Admin Bisacodyl 5 MG DAILY 12/05 0900 AC 12/13 PO 0753 Carvedilol 12.5 MG BID 12/04 2100 AC 12/13 PO 0754 Enoxaparin Sodium 40 MG DAILY 12/04 174 AC 12/13 SC 0754 Ibuprofen 200 MG Q6P PRN 12/11 1445 PO Magnesium Hydroxide 30 ML ONE ONE 12/13 0900 AC PO 12/13 0901 Neomycin/Polymyxin/ 1 CATRACHO DAILY 12/06 174 AC 12/13 Bacitracin EXT 0755 Nystatin 1 CATRACHO BID 12/10 1314 AC 12/13 TOP 0754 Omeprazole 40 MG DAILY AC 12/05 0700 AC 12/13 PO 0609 Polyethylene Glycol 17 GM DAILY 12/06 1155 AC 12/13 PO 0753 Potassium Chloride 20 MEQ .[id number] 12/09 1500 AC 12/12 Dextrose/Sodium 1,000 ML IV 2258 Chloride Prednisone 20 MG BID 12/10 0800 AC 12/13 PO 0754 Senna 187 MG AT BEDTIME 12/04 2100 AC 12/12 PO 2215 Spironolactone 25 MG DAILY 12/05 0900 AC 12/13 PO 0753 Last 24 Hrs of Lab/Parker Results Last 24 Hrs of Labs/Mics: Laboratory Tests 12/13/17 0720: Sodium Pending, Potassium Pending, Chloride Pending, Carbon Dioxide Pending, Anion Gap Pending, BUN Pending, Creatinine Pending, BUN/Creatinine Ratio Pending 12/12/17 1738: Troponin I Cancelled Assessment/Plan Assessment: Mr Simpson is a 55 yo m with a PMH of MS, quadriplegia, HFpEF, colonic pseudo- obstruction, neurogenic bladder s/p suprapubic catheter who presents to the ED with abdominal pressure. CT abd/pel showed asymptomatic Cholelithiasis without additional findings to suggest acute cholecystitis with prominent gaseous distention of the colon, most prominently affecting the sigmoid colon suggestive of chronic pseudoobstruction or ileus. 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 If patient still complains of abdominal pain/abdominal distention constant neostigmine. * US abd consistent with cholelithiasis * Continue Nystatin for groin rash * Repeat KUB pending to evaluate cecum shows no significant change * Follow off antibiotics and monitor white count * Continue Prednisone taper for MS, Spironolactone, Carvedilol * Baclofen discontinued due to the possibility of causing pseudo-obstruction ( discussed with Dr. Preciado) * Continue bowel regimen * Appreciate ID recommendations * Appreciate GI recommendations * As per Surgery patient is not a candidate for surgical intervention because patient is able to move bowels Diet: Full liquid DVT ppx: sc Enoxaparin Dispo: DC home today. Spoke with [place] who stated that he can home today and his living conditions are in place Problem List: 1. ABDOMINAL DISTENSION Pain Ratin Pain Location: NA Pain Goal: Remain pain free Pain Plan: NA Tomorrow's Labs & Rationales: none
[2017-12-13 14:04] VITALS: BP 122/72
== END 2017-12-13 18:19 | disposition home health service (06) | DRG 388 ==
LOC: DELPENDDIS → ERH 13:32 → ERHI 17:47 → 2NB 17:47 → CANRESERV 18:13 → ENRESERV 18:13 → ENTRNSPT 19:39 → EDTRNSPTSTS 19:46 → 2NB 20:00 → CMPTRNSPT 20:13 → 2NB 12-05 07:48 → ENPENDDIS 12-12 10:47 → 2NB 12-13 18:19
PROVIDERS: Emergency Medicine; Student in an Organized Health Care Education/Training Program
PROC: 0D9P70Z Drainage of Rectum with Drainage Device, Via Natural or Artificial Opening (ICD-10-PCS; principal; 2017-12-09)
DX: K56.600 Partial intestinal obstruction, unspecified as to cause (principal); G82.50 Quadriplegia, unspecified; I11.0 Hypertensive heart disease with heart failure; I50.32 Chronic diastolic (congestive) heart failure; G35 Multiple sclerosis; N31.9 Neuromuscular dysfunction of bladder, unspecified; R14.0 Abdominal distension (gaseous); Z93.50 Unspecified cystostomy status; D72.829 Elevated white blood cell count, unspecified; K21.9 Gastro-esophageal reflux disease without esophagitis; K80.20 Calculus of gallbladder without cholecystitis without obstruction; Z79.52 Long term (current) use of systemic steroids; T38.0X5A Adverse effect of glucocorticoids and synthetic analogues, initial encounter
CPT/HCPCS: 2NBP; 36592; 74018; 74177; 81001; 82436; 87040; 87086; 93005; 93010; 93306; 96360; 96361; 96365; 99291; J0696; J1650; J7042